=== PATIENT | male | born 1935 | race Caucasian/White ===

== ENCOUNTER 2016-05-10 10:46 | Day surgery (SDC) | payer OTHER ==
[2016-05-10 12:14] LABS: % IMMATURE GRANULYOCYTES 0.6 % (0.0-1.1); ABSOLUTE IMMATURE GRANULOCYTES 0.06 10^3/uL (0.00-0.10); ADD DIFF? NO; ADD MORPH? NO; ADD SCAN? NO; ATYPICAL LYMPHOCYTE FLAG 10 (0-99); FRAGMENT RBC FLAG 0 (0-99); HEMATOCRIT 41.7 % (40.0-51.0); HEMOGLOBIN 12.3 g/dL (13.7-17.5); LEFT SHIFT FLG 0 (0-99); LIPEMIA HEMOLYSIS FLAG 70 (0-99); MEAN CELL HEMOGLOBIN 25.5 pg (27.9-34.1); MEAN CELL HEMOGLOBIN CONCENTR. 29.5 g/dL (32.4-36.7); MEAN CELL VOLUME 86.3 fL (81.5-99.8); MEAN PLATELET VOLUME 8.2 fL (8.7-11.7); PLATELET CLUMPS FLAG 10 (0-99); PLATELET COUNT 387 10^3/uL (150-400); RED BLOOD CELL COUNT 4.83 10^6/uL (4.40-6.38); RED CELL DISTRIBUTION WIDTH 18.6 % (11.5-15.2)
[2016-05-10] MEDS ORDERED: LIDOCAINE 1% 5 ML SDV ID PRN (12:14)
[2016-05-10] MEDS ORDERED: LR 1,000 ML IV ONE (12:14)
[2016-05-10 12:18] LABS: ANION GAP 6 mEq/L (8-16); CALCIUM 9.4 mg/dL (8.5-10.4); CARBON DIOXIDE 31 mEq/l (22-31); CHLORIDE 105 mEq/L (97-110); CREATININE 1.1 mg/dL (0.7-1.3); GLOMERULAR FILTRATION RATE > 60; GLUCOSE 101 mg/dL (70-100); POTASSIUM 5.3 mEq/L (3.5-5.2); SODIUM 142 mEq/L (134-144)
[2016-05-10] MEDS ORDERED: BUPIVACAINE 0.5% 30 ML SDV ONE (12:18)
[2016-05-10] MEDS ORDERED: LIDOCAINE 2% 5 ML SDV ONE (12:19)
[2016-05-10 12:20] LABS: INR 1.16 (0.83-1.16); PROTIME(PATIENT) 14.8 SEC (12.0-15.0)
[2016-05-10] MEDS ORDERED: LIDOCAINE 1% 5 ML SDV ONE (13:00)
[2016-05-10] MEDS ORDERED: PROPOFOL/EMULSION 500 MG/50 ML BOTTLE IV ONE (13:01)
[2016-05-10] MEDS ORDERED: ALBUTEROL HFA ANES ONLY 200 PUFFS/8.5 GM MDI IH ONE (13:17)
[2016-05-10] MEDS ORDERED: fentaNYL 100 MCG/2 ML INJ ONE (13:40)
[2016-05-10] MEDS ORDERED: ONDANSETRON 4 MG/2 ML VIAL ONE (14:01)
[2016-05-10] MEDS ORDERED: OXYCODONE/APAP 5/325 TAB PO PRN (14:31)
[2016-05-10] MEDS ORDERED: OXYCODONE/APAP 5/325 TAB ONE (14:37)
--- NOTE | 2016-05-11 11:42 | GOP ---
[f rep st] OPERATIVE REPORT DATE OF OPERATION: 05/10/2016 SURGEON: Rodger Zeng DPM PENCILLER: None. ANESTHESIA: Local with monitored anesthesia care. PREOPERATIVE DIAGNOSIS: Osteomyelitis, 5th metatarsal head, left foot. POSTOPERATIVE DIAGNOSIS: Osteomyelitis, 5th metatarsal head, left foot. PROCEDURE PERFORMED: Partial 5th metatarsal resection, left foot. FINDINGS: SPECIMENS: Pathology: Distal portion of the left 5th metatarsal was sent for permanent specimen, al alice with the proximal margin. Swab cultures were also sent. ESTIMATED BLOOD LOSS: Scant. 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 This is one of multiple surgeries the patient has had on bila teral feet to remove exposed bone or deal with chronic ulcerations. Currently, the patient has an ex posed 5th metatarsal head to the left foot. The patient's vital signs were otherwise stable. The pa tient is scheduled for a left 5th metatarsal head resection for the distal portion of the 5th metatar mendez. The patient understands the risks, benefits, and alternatives, including loss of foot, limb or life, and wishes to proceed. DESCRIPTION OF PROCEDURE: Under observation, the patient was brought into the operating room, placed on the operating room in supine position. Following further IV sedation, 20 cc of 0.5% Marcaine alex in was infiltrated about the patient's left foot. It was then scrubbed, prepped, and draped in the u sual aseptic manner. A sterile pneumatic tourniquet was placed about the patient's well padded supra malleolar area. The foot was exsanguinated by simple elevation, and the tourniquet was inflated to 2 50 mmHg. The incision was directed overlying the dorsolateral aspect of the patient's 5th metatarsal head. Th e incision was roughly 6 cm long. The blade was taken straight to bone. Periosteal and capsular tis sues were reflected dorsally and plantarly, thus exposing the distal half of the left 5th metatarsal. Upon further dissection, the already present plantar lateral wound to the patient's left forefoot c onnected directly with the patient's left 5th metatarsal head. The 5th metatarsal head was soft, non viable, and had already broken down due to chronic inflammation and likely infection. All bone piece s were removed. Next, using a sagittal saw, the distal one-third of the patient's 5th metatarsal was resected and passed from the operative field. This was passed with the head of the 5th metatarsal i n multiple pieces, sent for pathologic specimen. Next, utilizing a sagittal saw, a 2 mm proximal mar gin was taken with the proximal portion being marked with an indelible pen. This was sent in a separ ate specimen container for pathologic specimen. The wound was then flushed with copious amounts of s terile normal saline. Any other nonviable tissue, especially within the ulcerative area, was excised . Two deep sutures were placed to close the void left by the missing 5th metatarsal. The incision w as closed with 3-0 Monocryl, closing the subcutaneous layers in 4-0 nylon in interrupted horizontal m attress sutures to close the skin. The wound was then addressed. Again, the edges were freshened, a nd the wound was closed with 2 deep sutures of 2-0 Vicryl and retention sutures of 4-0 nylon. The wo und was dressed with Xeroform and a sterile compressive dressing consisting of 4 x 4's and Bryson. An Junior wrap was also applied. Next, attention was directed to the lateral aspect of the patient's right foot, where a very superfic ial ulceration was overlying the 5th metatarsal. There were no exposed deep tissues, and the wound w as roughly 1.5 cm in diameter and 0.1 cm in depth. Granular tissue was at the base. This was freshe ramos with a sterile, clean 15 blade, and the wound was dressed with Xeroform and a sterile compressive dressing consisting of 4 x 4's and Bryson. An Junior bandage was also applied to this right foot. The patient tolerated the procedure and anesthesia well. The tourniquet was dropped on the left side, an d a prompt hyperemic response was noted to all residual digits of the left foot. He was transferred to the recovery room with vital signs stable and vascular status intact to all residual digits of the left and right feet. The patient will be discharged home on the following written and oral postoperative instructions: 1. Heel weightbearing is permitted with the use of surgical shoes. The patient is instructed to mini darby weightbearing. 2. The patient will follow up in my private office in 3-5 days for clinical assessment. All followup questions and concerns should be directed toward [facility] Orthopedic Department at [phone]. HEMOSTASIS: A pneumatic ankle tourniquet for 23 minutes. MATERIALS: None. INJECTABLES: 20 cc of 0.5% Marcaine plain. COMPLICATIONS: None. /[id number]/MODL
== END 2016-05-10 17:30 | disposition home or self-care (01) ==
LOC: FSGY 10:46
PROVIDERS: ATTEND Podiatrist Foot & Ankle Surgery
PROC: 0QBP0ZZ Excision of Left Metatarsal, Open Approach (ICD-10-PCS; principal; 2016-05-10 12:45)
DX: M86.272 Subacute osteomyelitis, left ankle and foot (principal); I50.9 Heart failure, unspecified; J44.9 Chronic obstructive pulmonary disease, unspecified; K21.9 Gastro-esophageal reflux disease without esophagitis; G47.33 Obstructive sleep apnea (adult) (pediatric)
CPT/HCPCS: J2405; J2704; J3010

== ENCOUNTER 2016-06-09 16:26 | Inpatient (IN) | payer OTHER ==
[2016-06-09] MEDS ORDERED: MIDAZOLAM 2 MG/2 ML VIAL ONE (19:35)
[2016-06-09] MEDS ORDERED: ONDANSETRON 4 MG/2 ML VIAL ONE (19:43)
[2016-06-09] MEDS ORDERED: DEXAMETHASONE 4 MG/ML VIAL ONE (19:43)
[2016-06-09] MEDS ORDERED: LIDOCAINE 2% 5 ML SDV ONE (19:43)
[2016-06-09] MEDS ORDERED: fentaNYL 100 MCG/2 ML INJ ONE (19:44)
[2016-06-09] MEDS ORDERED: PROPOFOL 200 MG/20 ML VIAL ONE ×2 (19:44→20:15)
[2016-06-09] MEDS ORDERED: METOPROLOL TARTRATE 5 MG/5 ML INJ ONE (20:18)
[2016-06-09] MEDS ORDERED: METOCLOPRAMIDE 10 MG/2 ML VIAL IVP PRN (20:47)
[2016-06-09] MEDS ORDERED: ONDANSETRON 4 MG/2 ML VIAL IVP PRN (20:47)
[2016-06-09] MEDS ORDERED: diphenhydrAMINE 25 MG CAP PO PRN (20:47)
[2016-06-09] MEDS ORDERED: DIPHENOXYLATE/ATROPINE LOMOTIL 1 TAB PO PRN (20:47)
[2016-06-09] MEDS ORDERED: PROMETHAZINE HCL 25 MG/ML INJ IVP PRN (20:47)
[2016-06-09] MEDS ORDERED: TEMAZEPAM 15 MG CAP PO PRN (20:47)
[2016-06-09] MEDS ORDERED: ONDANSETRON DISINTEGRATING 4 MG TAB PO PRN (20:47)
[2016-06-09] MEDS ORDERED: CYCLOBENZAPRINE 10 MG TAB PO PRN (20:47)
[2016-06-09] MEDS ORDERED: PROMETHAZINE HCL 25 MG SUPPR PR PRN (20:47)
[2016-06-09] MEDS ORDERED: LR 1,000 ML IV SCH (21:00)
[2016-06-09] MEDS: FAMOTIDINE 20 MG TAB PO SCH (22:20)
[2016-06-09] MEDS: ACETAMINOPHEN 325 MG TAB PO SCH (23:30)
[2016-06-09 23:38] LABS: ANION GAP 10 mEq/L (8-16); CARBON DIOXIDE 24 mEq/l (22-31); CHLORIDE 104 mEq/L (97-110); CREATININE 1.4 mg/dL (0.7-1.3); GLOMERULAR FILTRATION RATE 49; GLUCOSE 191 mg/dL (70-100); SODIUM 138 mEq/L (134-144)
--- NOTE | 2016-06-10 02:46 | GOP ---
[f rep st] OPERATIVE REPORT DATE OF OPERATION: 06/09/2016 SURGEON: Rodger Zeng DPM COUNTRY SINGER: None. ANESTHESIA: IV general. PREOPERATIVE DIAGNOSIS: Cellulitis with likely osteomyelitis, left foot. POSTOPERATIVE DIAGNOSIS: Cellulitis with likely osteomyelitis, left foot. PROCEDURE PERFORMED: An incision and drainage with partial resection of the residual 5th metatarsal . FINDINGS: SPECIMENS: Soft tissue and bone specimen sent to Pathology and for culture. ESTIMATED BLOOD LOSS: Minimal. INDICATIONS: The patient is well known to our practice and presented to the [facility] earlier this afternoon. I was called in my private office by Dr. Ridge jiin g the patient's cellulitis and open wounds with kavin purulence coming from the wounds. The patient was afebrile and without pain to the left foot. His vital signs were normal. I personally have no t seen any initial lab work. The patient was direct admitted through the emergency department and m cherise n.p.o. for the incision and drainage performed. The patient understands the risks, benefits, an d alternative to the procedure. The patient consents to care and wishes to proceed. DESCRIPTION OF PROCEDURE: Under mild sedation, the patient was brought into the operating room, alex mary jane on the operating table in supine position. Following further IV sedation, the left foot was giv en a regional block of 30 cc of 0.5% Marcaine plain. The foot was then scrubbed, prepped, and drape d in the usual aseptic manner. The foot was exsanguinated with elevation only and the tourniquet wa s inflated to 225 mmHg. Attention was then directed to the lateral aspect of the patient's left foot. A 6 cm linear longitu dinal incision was made in line with the 5th metatarsal down to the base of the 5th metatarsal. The incision was made deep to bone. The soft tissue specimen was taken for culture regarding aerobic, anaerobic, acid-fast, and fungal cultures. At this time, the residual 5th metatarsal was identified . There was a transverse column of soft bone at the metaphyseal diaphyseal junction. A sagittal sa w was utilized to remove this area and everything distal to it of the 5th metatarsal. The base of t he 5th metatarsal was left in place as it did not have any soft bone or necrotic tissue still there. Any nonviable soft tissue was resected and passed from the operative field. The wound was flushed with copious amounts of sterile normal saline. A single deep suture was used to cover the residual base of the 5th metatarsal. The skin was closed with retention-type sutures of a combination of 3- 0 and 2-0 nylon. The wound was dressed with Xeroform and a sterile compressive dressing consisting of 4x4s and Bryson. An Junior wrap was also applied. The tourniquet was dropped and a prompt hyperemic response was noted to all digits of the left foot. The patient tolerated the procedure and anesthe devora well. He will be transferred to the floor for further Infectious Disease consultation regarding IV antibiotics for osteomyelitis of the left foot. The patient will also be admitted by the [facility] team for further medical management and anticoagulation along with pain management. SURGEON: Rodger Zeng DPM. HEMOSTASIS: Pneumatic ankle tourniquet about the left ankle at 225 mmHg for 26 minutes. INJECTABLES: 30 cc of 0.5% Marcaine plain. MATERIALS: None. COMPLICATIONS: None. /[id number]/MODL
[2016-06-10] MEDS: oxyCODONE IR 5 MG TAB PO PRN ×2 (03:09→08:17)
[2016-06-10 04:58] LABS: HEMATOCRIT 41.1 % (40.0-51.0); HEMOGLOBIN 12.1 g/dL (13.7-17.5)
[2016-06-10] MEDS: ACETAMINOPHEN 325 MG TAB PO SCH ×3 (05:36→17:14)
--- NOTE | 2016-06-10 07:11 | SOAPPROG ---
SOAP Progress Note Assessment/Plan: Assessment: s/p left foot I&D - POD1 Plan: 06/10/16 07:06 continue with elevation of left foot. okay to WBAT in surgical shoe, but limit WB for next 24 hours to bathroom privileges. Assuming PICC line placement today via ID orders. Awaiting pending micro and path. Answered questions. Subjective: Doing well. No pain. Able to sleep. Denies f/c/n/v. Objective: Vital Signs Temp Pulse Resp BP Pulse Ox 36.3 C 87 18 130/76 H 91 L 06/10/16 03:00 06/10/16 03:00 06/10/16 03:00 06/10/16 03:00 06/10/16 03:00 Laboratory Results 06/10/16 04:16 06/09/16 23:18 06/09/16 06/10/16 06/11/16 05:59 05:59 05:59 Intake Total 950 327 Output Total 150 200 Balance 800 127 dsg: c/d/i; no strikethru ICD10 Worksheet Patient Problems: Problems Problem Status Onset Cellulitis Acute Chronic Disease [facility]/TransitionalCare Acute DVT (deep venous thrombosis) Acute Dyspnea Acute Hypoxia Acute MRSA (methicillin resistant Staphylococcus aureus) Acute 05/10/16 MRSA cellulitis Acute Pneumonia Acute Pulmonary emboli Acute Upper GI bleed Acute
[2016-06-10] MEDS ORDERED: traMADol 50 MG TAB PO PRN (07:12)
[2016-06-10] MEDS: FAMOTIDINE 20 MG TAB PO SCH ×3 (08:18→21:44)
[2016-06-10] MEDS ORDERED: GABAPENTIN 100 MG CAP PO SCH (09:00)
--- NOTE | 2016-06-10 10:41 | WOCRNPDOC ---
JOHN Advanced Assessment Note - Skin Integrity Problem, Advanced Assess Left Truong Dressing Type: Tegaderm Film, Xeroform Dressing Description: Clean/Dry, Intact Right Lateral Foot Dressing Type: Band Aid Dressing Description: Clean/Dry, Intact Exudate Amount: None Integumentary Issue Intervention: Visualized Under Dressing Vicki Wound Tissue: Hair Loss, Crusted, Calloused, Hyperkeratotic ((lower leg)) Vicki Wound Swelling: None Wound Bed Constitution: Scab, Dried Exudate Site Measurement - Head-to-Toe Length X Width X Depth (cm): 1x1x0 Skin Integrity Problem Comment: Foot with mulitple previous amputation sites that are now healed. Keep scab intact. Do not moisturize. [place] with Betadine BID. Compression during day and off at NOC. Atractain lotion to legs daily. Discussed care with [facility] outpatient Wound clinic. Papo GASPAR in room. Left Foot Dressing Type: Junior Bandage Dressing Description: Clean/Dry, Intact
[2016-06-10] MEDS ORDERED: ALBUTEROL 60 PUFFS/8 GM MDI IH PRN (11:12)
[2016-06-10] MEDS ORDERED: ACETAMINOPHEN 325 MG TAB PO PRN (11:12)
[2016-06-10] MEDS ORDERED: OXYCODONE/APAP 5/325 TAB PO PRN (11:12)
[2016-06-10] MEDS ORDERED: NON-FORMULARY NEW DRUG (Testosterone Cypionate [Testosterone Cypionate] 200 MG) IM SCH ×2 (11:15→12:00)
[2016-06-10] MEDS: APIXABAN 5 MG TAB PO SCH ×2 (12:03→21:43)
[2016-06-10] MEDS: SPIRONOLACTONE 25 MG TAB PO SCH (12:03)
[2016-06-10] MEDS ORDERED: ALTEPLASE 2 MG VIAL IVP PRN (13:10)
[2016-06-10] MEDS ORDERED: IOPAMIDOL (ISOVUE-300) 100 ML BTL IV ONE (14:30)
[2016-06-10] MEDS: VANCOMYCIN HCL/NORMAL SALINE 250 ML IV SCH (14:41)
[2016-06-10] MEDS: GABAPENTIN 100 MG CAP PO SCH ×2 (15:41→21:44)
[2016-06-10] MEDS ORDERED: MAGNESIUM HYDROXIDE 30 ML UDCUP PO PRN (15:48)
[2016-06-10] MEDS ORDERED: POLYETHYLENE GLYCOL 3350 17 GM PKT PO PRN (15:48)
[2016-06-10] MEDS ORDERED: LACTULOSE 20 GM/30 ML UDCUP PO PRN (15:48)
[2016-06-10] MEDS ORDERED: BISACODYL 10 MG SUPP PR PRN (15:48)
--- NOTE | 2016-06-10 16:52 | GCON ---
[f rep st] CONSULTATION DATE OF CONSULTATION: 06/10/2016 REASON FOR CONSULTATION: Medical management. HISTORY OF PRESENT ILLNESS: Mr. Mistry is a 80-year-old male, who has a longstanding history of multi ple surgeries on his left foot. He has been followed at the [facility], where he is seen by Dr. Dorantes, and the patient was noted to have increasing cellulitis and open wounds with purulent draina ge, requiring incision and drainage as well as partial resection of the residual 5th metatarsal and admission to the hospital for further evaluation and management. I have discussed the patient's car e with Dr. Zeng. Mr. Mistry tells me that this has been an ongoing problem for him. He has no specific complaints at this time. He denies any nausea, vomiting, diarrhea. Denies any fever, swea ts or night chills. Denies any dyspnea. chest pain or shortness of breath. He states that he has s ome mild discomfort in his left foot, but otherwise feels within his normal health. PAST MEDICAL HISTORY: 1. History of PEs and multiple DVTs, on Eliquis. 2. Alcohol abuse. 3. Diastolic heart failure. 4. Obstructive sleep apnea. 5. Chronic right lower extremity lymphedema. 6. Chronic lower extremity wounds. 7. Peripheral neuropathy. 8. GERD. 9. Chronic obstructive pulmonary disease. 10. Chronic hypoxemic respiratory failure with 4 L of oxygen. PAST SURGICAL HISTORY: 1. Right KRIS. 2. Bilateral rotator cuff surgeries. 3. 8+ surgeries on his foot. 4. Cholecystectomy. SOCIAL HISTORY: [place] [facility] [place] [facility] [place] [facility] [place]. He has a son who lives in [place]. He quit tobacco 25 years ago, but smoked 2 packs a day for 30 years. He drinks 3 whiskey drinks a n ight. He uses no illicit drugs. FAMILY HISTORY: Mother of aortic dissection at age 65. Father of [place] at age 51. ALLERGIES: None. REVIEW OF SYSTEMS: A comprehensive 10-point review of systems is negative other than noted in HPI. HOME MEDICATIONS: Testosterone, torsemide, Aldactone, Eliquis, Elavil, Percocet, Prilosec, albutero l, Tylenol, trazodone, Flomax, Neurontin. PHYSICAL EXAM: GENERAL: The patient is alert and oriented. VITAL SIGNS: Afebrile at 36.3, pulse is 92, respiratory rate 16, blood pressure is 114/82. He is saturating 92% on 3 L. HEENT: Normoce phalic, atraumatic. Mucosal membranes are moist. Pupils equal, round, reactive to light. RESPIRAT ORY: Lungs are clear to auscultation bilaterally. No rhonchi or wheezes noted. GASTROINTESTINAL: Abdomen: Bowel sounds are positive, soft and nontender. There is no guarding, rigidity noted. MU SCULOSKELETAL: 5/5 strength in the upper and lower extremities. SKIN: Without rashes or lesions. Left lower extremity has a dressing that is clean, dry, intact. Bilateral lower extremities have m ild edema with circulatory issues noted. LABORATORY EVALUATION: Hemoglobin of 12.1, creatinine of 1.4. ASSESSMENT AND PLAN: 1. History of deep vein thrombosis and pulmonary embolism. I will reinitiate the patient's previou sly prescribed anticoagulation of Eliquis. These are chronic ongoing problems for Mr. Mistry. I have reviewed with Dr. Zeng. He is comfortable with the patient being anticoagulated in the posto perative state. 2. Left foot cellulitis with wound. He has received incision and drainage as well as partial resec tion of the residual 5th metatarsal performed by Dr. Zeng. Infectious Disease will continue t o follow Mr. Mistry during this hospitalization. He will receive a PICC line with long-term IV antibi otics to be arranged by Infectious Disease. 3. History of alcohol abuse. There are no signs of withdrawal currently at this time, and Mr. Mistry appears to be stable. We will continue to monitor him closely during this hospitalization. 4. Compensated diastolic heart failure. There is no evidence of volume overload. He is stable and will continue his previously prescribed home diuretics. 5. Chronic hypoxemic respiratory failure. This is secondary to the patient's chronic obstructive p ulmonary disease. He normally wears 4 L of oxygen. He is currently tolerating 3 L of oxygen, and a ppears to be stable at this time. 6. Peripheral neuropathy. Will continue his previously prescribed gabapentin. 7. Pain. The patient will attempt to use Tylenol and if needed, will continue Percocet. 8. Obstructive sleep apnea. This is stable. The patient does not tolerate CPAP. DISPOSITION: Mr. Mistry's discharge is pending further organization of his IV antibiotics and physica l therapy evaluation. It has been recommended today that he receive home health care. I reviewed t he patient's care with the behavioral health case manager. We will continue to establish a discharge plan, and the maria de jesus littlejohn will be seen by Dr. Mills on 06/11/2016. I appreciate the ability to consult in this pleasant gentleman's care. We will continue to follow a long with you during his hospital course. /[id number]/MODL
--- NOTE | 2016-06-10 18:24 | PCMIDPN ---
Assessment/Plan: Assessment: Left foot postoperative infection and osteomyelitis. Prior MRSA and group a strep in culture. Current culture results pending but Gram stain shows both gram-positive cocci and gram-negative rods. Will start vancomycin and ertapenem. Anticipate need for 6 weeks of treatment. Patient agrees to go to a halfway facility for rehabilitation and IV antibiotics. Plan: 1. Continue vancomycin and start ertapenem 1 g IV Q 24 hours. 2. PICC line placement. 3. Placement in halfway facility for the short term. 06/10/16 18:22 Subjective: Patient is resting comfortably in bed. He states that his left foot is little sore since surgery. No fevers or chills. Objective: Vancomycin # 1 Ertapenem # 1 Vital Signs Temp Pulse Resp BP Pulse Ox 36.7 C 95 12 129/71 H 92 06/10/16 17:55 06/10/16 17:55 06/10/16 17:55 06/10/16 17:55 06/10/16 17:55 Microbiology 06/09/16 20:09 Mycobacterial Smear (RAEGAN) - Final Foot - Tissue 06/09/16 20:09 Gram Stain - Final Foot - Tissue Laboratory Results 06/10/16 04:16 06/09/16 23:18 06/09/16 06/10/16 06/11/16 05:59 05:59 05:59 Intake Total 950 1627 Output Total 150 200 Balance 800 1427 - Physical Exam General Appearance: WD/WN, alert, no apparent distress, non-toxic Respiratory: lungs clear, normal breath sounds, No respiratory distress Cardiac/Chest: regular rate, rhythm, No tachycardia Skin: normal color, warm/dry, No rash Neuro/Psych: alert, normal mood/affect, oriented x 3 ICD10 Worksheet Patient Problems: Problems Problem Status Onset Cellulitis Acute Chronic Disease Mgmt/TransitionalCare Acute DVT (deep venous thrombosis) Acute Dyspnea Acute Hypoxia Acute MRSA (methicillin resistant Staphylococcus aureus) Acute 05/10/16 MRSA cellulitis Acute Pneumonia Acute Pulmonary emboli Acute Upper GI bleed Acute
[2016-06-10] MEDS: AMITRIPTYLINE HCL 50 MG TAB PO SCH (21:43)
[2016-06-10] MEDS: traZODone 100 MG TAB PO SCH (21:43)
[2016-06-10] MEDS: SENNOSIDES/DOCUSATE SODIUM TAB PO SCH (21:44)
[2016-06-11] MEDS: ACETAMINOPHEN 325 MG TAB PO SCH ×5 (00:30→23:58)
[2016-06-11 05:48] LABS: HEMATOCRIT 37.3 % (40.0-51.0); HEMOGLOBIN 10.7 g/dL (13.7-17.5)
[2016-06-11] MEDS ORDERED: NON-FORMULARY NEW DRUG (Omeprazole [Prilosec 20 Mg] 20 MG) PO SCH (09:00)
[2016-06-11] MEDS: ERTAPENEM 1 GM in NS 100 ML IV SCH (09:57)
[2016-06-11] MEDS: GABAPENTIN 100 MG CAP PO SCH ×3 (09:58→20:48)
[2016-06-11] MEDS: TAMSULOSIN HCL 0.4 MG CAP PO SCH (09:58)
[2016-06-11] MEDS: TORSEMIDE 20 MG TAB PO SCH (09:58)
[2016-06-11] MEDS: FAMOTIDINE 20 MG TAB PO SCH ×2 (09:59→20:47)
[2016-06-11] MEDS: PANTOPRAZOLE SODIUM 40 MG TAB PO SCH (09:59)
[2016-06-11] MEDS: SENNOSIDES/DOCUSATE SODIUM TAB PO SCH ×2 (09:59→20:47)
[2016-06-11] MEDS: APIXABAN 5 MG TAB PO SCH ×2 (09:59→20:48)
[2016-06-11] MEDS: SPIRONOLACTONE 25 MG TAB PO SCH (11:48)
[2016-06-11] MEDS: VANCOMYCIN HCL/NORMAL SALINE 250 ML IV SCH (13:56)
[2016-06-11] MEDS: traZODone 100 MG TAB PO SCH (20:48)
--- NOTE | 2016-06-11 21:33 | HOSPPROG ---
Hospitalist Progress Note Assessment/Plan: Assessment: 80 yo M p/w post-operative wound infection and osteomyelitis Plan: # Osteomyelitis. 2/2 post-op wound infxn, s/p 5th metatarsal removal POD#1 - cx w/ GPC/GNR - ID consult, on Vanco and Ertapenem - PICC line for 6 weeks IV Abx - Dr. Zeng Podiatry primary # Chronic diastolic CHF. No e/o acute exacerbation, cont home Rx # Chronic hypoxic respiratory failure. Cont home 4L NC # Chronic DVT/PE. Cont on eliquis, no substantial post-op bleeding # CKD Stage III. Cr 1.4, cont to monitor UOP and serum Cr # SHANNAN. Chronic, patient does not tolerate CPAP # Neuropathy. Chronic, patient w/ recent dose reduction 2/2 lightheadedness # Constipation. Cont bowel regimen, recommend mag citrate PRN Hospital Medicine will continue to consult in his care. Subjective: remains constipation, gets dizzy w/ gabapentin dosing Objective: Vital Signs Temp Pulse Resp BP Pulse Ox 36.5 C 83 19 112/61 92 06/11/16 15:18 06/11/16 15:18 06/11/16 15:18 06/11/16 15:18 06/11/16 15:18 Microbiology 06/09/16 20:09 Gram Stain - Final Foot - Tissue 06/09/16 20:09 Mycobacterial Smear (RAEGAN) - Final Foot - Tissue Laboratory Results 06/11/16 05:30 06/09/16 23:18 06/10/16 06/11/16 06/12/16 05:59 05:59 05:59 Intake Total 950 1627 Output Total 150 550 700 Balance 800 1077 -700 - Physical Exam Constitutional: not in pain, chronically ill appearing, obese, uncomfortable Cardiovascular: regular rate and rhythym, no murmur, rub, or gallop, irregularly irregular, edema (1+ bilt LE), No tachycardia Respiratory: inspiratory crackles (bilat bases), No reduced air movement, No expiratory wheeze, No bronchial breath sounds Gastrointestinal: normoactive bowel sounds, soft, non-tender abdomen, no palpable masses, distension (rotund) Neurologic: AAOx3, No sensation intact bilaterally (parasthesias bilat LE distally), No weakness (motor 5/5 bilat LE) Psychiatric: interacting appropriately, not anxious, not encephalopathic, thought process linear ICD10 Worksheet Patient Problems: Problems Problem Status Onset Cellulitis Acute DVT (deep venous thrombosis) Acute Pulmonary emboli Acute MRSA (methicillin resistant Staphylococcus aureus) Acute 05/10/16 Dyspnea Acute Hypoxia Acute MRSA cellulitis Acute Pneumonia Acute Chronic Disease Mgmt/TransitionalCare Acute Upper GI bleed Acute
[2016-06-11] MEDS ORDERED: MAGNESIUM CITRATE 300 ML BOTTLE PO PRN (21:34)
--- NOTE | 2016-06-11 22:02 | PCMIDPN ---
Assessment/Plan: Assessment: Left foot postoperative infection and osteomyelitis. Prior MRSA and group a strep in culture. Current culture results pending but Gram stain shows both gram-positive cocci and gram-negative rods. Stable on Vancomycin and ertapenem. Mixed cutaneous princess on culture. Plan: 1. Continue vancomycin and ertapenem 1 g IV Q 24 hours. 2. Placement in retirement facility for the short term. 06/10/16 18:22 06/11/16 21:59 Subjective: Patient stable. No new events. Objective: Vancomycin #2 ertapenem #2 Vital Signs Temp Pulse Resp BP Pulse Ox 36.5 C 83 19 112/61 92 06/11/16 15:18 06/11/16 15:18 06/11/16 15:18 06/11/16 15:18 06/11/16 15:18 Microbiology 06/09/16 20:09 Gram Stain - Final Foot - Tissue 06/09/16 20:09 Mycobacterial Smear (RAEGAN) - Final Foot - Tissue Laboratory Results 06/11/16 05:30 06/09/16 23:18 06/10/16 06/11/16 06/12/16 05:59 05:59 05:59 Intake Total 950 1627 Output Total 150 550 700 Balance 800 1077 -700 ICD10 Worksheet Patient Problems: Problems Problem Status Onset Cellulitis Acute Chronic Disease Mgmt/TransitionalCare Acute DVT (deep venous thrombosis) Acute Dyspnea Acute Hypoxia Acute MRSA (methicillin resistant Staphylococcus aureus) Acute 05/10/16 MRSA cellulitis Acute Pneumonia Acute Pulmonary emboli Acute Upper GI bleed Acute
[2016-06-11 22:39] VITALS: RESP 16
[2016-06-11] MEDS: AMITRIPTYLINE HCL 50 MG TAB PO SCH (22:39)
[2016-06-12] MEDS: ACETAMINOPHEN 325 MG TAB PO SCH ×2 (05:34→12:29)
[2016-06-12 05:59] LABS: % IMMATURE GRANULYOCYTES 0.5 % (0.0-1.1); ABSOLUTE IMMATURE GRANULOCYTES 0.04 10^3/uL (0.00-0.10); ADD DIFF? NO; ADD MORPH? NO; ADD SCAN? NO; ATYPICAL LYMPHOCYTE FLAG 10 (0-99); FRAGMENT RBC FLAG 0 (0-99); HEMATOCRIT 38.1 % (40.0-51.0); HEMOGLOBIN 11.2 g/dL (13.7-17.5); LEFT SHIFT FLG 0 (0-99); LIPEMIA HEMOLYSIS FLAG 70 (0-99); MEAN CELL HEMOGLOBIN 24.9 pg (27.9-34.1); MEAN CELL HEMOGLOBIN CONCENTR. 29.4 g/dL (32.4-36.7); MEAN CELL VOLUME 84.9 fL (81.5-99.8); PLATELET CLUMPS FLAG 0 (0-99); PLATELET COUNT 298 10^3/uL (150-400); RED BLOOD CELL COUNT 4.49 10^6/uL (4.40-6.38)
[2016-06-12 06:19] LABS: ANION GAP 5 mEq/L (8-16); CALCIUM 10.1 mg/dL (8.5-10.4); CARBON DIOXIDE 29 mEq/l (22-31); CHLORIDE 105 mEq/L (97-110); CREATININE 1.3 mg/dL (0.7-1.3); GLOMERULAR FILTRATION RATE 53; GLUCOSE 85 mg/dL (70-100); POTASSIUM 5.6 mEq/L (3.5-5.2); SODIUM 139 mEq/L (134-144)
--- NOTE | 2016-06-12 08:48 | SOAPPROG ---
SOAP Progress Note Assessment/Plan: Assessment: s/p left foot I&D - POD3 Plan: 06/10/16 07:06 continue with elevation of left foot. okay to WBAT in surgical shoe, but limit WB for next 24 hours to bathroom privileges. Assuming PICC line placement today via ID orders. Awaiting pending micro and path. Answered questions. 06/12/16 08:45 Dressing changed this morning. Patient to be discharged to SNF today. [facility], I believe. Continue with daily dressing change: xeroform, sterile gauze, Kerlix and REJI bandage. Okay to ambulate in surgical shoe, but this must be secured for patient prior to walking (he will slip out of shoe and is unable to reach down himself). He should follow up for dressing change in my office at [facility] on Tuesday06/16/16. He will need to schedule once at [facility] to schedule transfer. Subjective: Doing well. He's celebrating his BM this morning after 3 days of not moving bowels. Otherwise, his left foot pain is controlled with tylenol. Denies f/c/n /v. Objective: Vital Signs Temp Pulse Resp BP Pulse Ox 36.4 C 82 16 113/66 91 L 06/12/16 07:33 06/12/16 07:33 06/12/16 07:33 06/12/16 07:33 06/12/16 07:33 Microbiology 06/09/16 20:09 Gram Stain - Final Foot - Tissue Laboratory Results 06/12/16 05:40 06/12/16 05:40 06/11/16 06/12/16 06/13/16 05:59 05:59 05:59 Intake Total 1627 750 Output Total 550 1200 Balance 1077 -450 incision site remains intact; mild maceration due to bleeding, but this can be dried with appropriate wound care; no further signs of infection - Pending Discharge Pending Discharge Within 24 Hours: Yes Pending Discharge Date: 06/13/16 Pending Discharge Time: 11:00 ICD10 Worksheet Patient Problems: Problems Problem Status Onset Cellulitis Acute Chronic Disease Mgmt/TransitionalCare Acute DVT (deep venous thrombosis) Acute Dyspnea Acute Hypoxia Acute MRSA (methicillin resistant Staphylococcus aureus) Acute 05/10/16 MRSA cellulitis Acute Pneumonia Acute Pulmonary emboli Acute Upper GI bleed Acute
[2016-06-12] MEDS ORDERED: BENEFIBER/NUTRISOURCE FIBER PKT 1 EACH PO SCH (09:00)
[2016-06-12] MEDS: TAMSULOSIN HCL 0.4 MG CAP PO SCH (09:15)
[2016-06-12] MEDS: FAMOTIDINE 20 MG TAB PO SCH (09:15)
[2016-06-12] MEDS: APIXABAN 5 MG TAB PO SCH (09:15)
[2016-06-12] MEDS: PANTOPRAZOLE SODIUM 40 MG TAB PO SCH (09:15)
[2016-06-12] MEDS: ERTAPENEM 1 GM in NS 100 ML IV SCH (09:15)
[2016-06-12] MEDS: GABAPENTIN 100 MG CAP PO SCH ×2 (09:16→16:50)
[2016-06-12] MEDS: SENNOSIDES/DOCUSATE SODIUM TAB PO SCH (09:16)
[2016-06-12] MEDS: TORSEMIDE 20 MG TAB PO SCH (09:16)
[2016-06-12] MEDS: SPIRONOLACTONE 25 MG TAB PO SCH (12:29)
--- NOTE | 2016-06-12 12:53 | HOSPPROG ---
Hospitalist Progress Note Assessment/Plan: Assessment: 80 yo M p/w post-operative wound infection and osteomyelitis Plan: # Osteomyelitis. 2/2 post-op wound infxn, s/p 5th metatarsal removal POD#2 - cx w/ GPC/GNR, Enterococcus growing - ID consult, on Vanco and Ertapenem - PICC line for 6 weeks IV Abx, will require home infusion vs. infusion ctr, should be arranged w/ SNF CM and outpt ID and follow-up appt in 1 week w/ Dr. Dorantes - Dr. Zeng Podiatry primary # Chronic diastolic CHF. No e/o acute exacerbation, cont home Rx # Chronic hypoxic respiratory failure. Cont home 4L NC # Chronic DVT/PE. Cont on eliquis, no substantial post-op bleeding # CKD Stage III. Cr 1.3, cont to monitor UOP and serum Cr # SHANNAN. Chronic, patient does not tolerate CPAP # Neuropathy. Chronic, patient w/ recent dose reduction 2/2 lightheadedness # Constipation. Cont bowel regimen, had BM, recommend outpt daily fiber supplement Patient is safe for discharge from a medical standpoint - Dr. Zeng is primary Subjective: Patient reports that he would like some additional ibuprofen at this time, would like to discuss outpatient IV infusion services with Infectious Disease Objective: Vital Signs Temp Pulse Resp BP Pulse Ox 36.4 C 82 16 113/66 91 L 06/12/16 07:33 06/12/16 07:33 06/12/16 07:33 06/12/16 07:33 06/12/16 07:33 Microbiology 06/09/16 20:09 Gram Stain - Final Foot - Tissue Laboratory Results 06/12/16 05:40 06/12/16 05:40 06/11/16 06/12/16 06/13/16 05:59 05:59 05:59 Intake Total 1627 750 Output Total 550 1200 300 Balance 1077 -450 -300 - Physical Exam Constitutional: no apparent distress, not in pain, chronically ill appearing, obese, uncomfortable Cardiovascular: regular rate and rhythym, no murmur, rub, or gallop, edema (2+ bilateral lower extremity), No irregularly irregular Respiratory: no respiratory distress, no rales or rhonchi, clear to auscultation Gastrointestinal: normoactive bowel sounds, soft, non-tender abdomen, no palpable masses, distension (Proton) Neurologic: AAOx3, No sensation intact bilaterally (Paresthesias bilateral distal lower extremities), No weakness (Motor strength 5/5 bilateral lower extremity), No facial droop Psychiatric: interacting appropriately, not anxious, not encephalopathic, thought process linear ICD10 Worksheet Patient Problems: Problems Problem Status Onset Cellulitis Acute DVT (deep venous thrombosis) Acute Pulmonary emboli Acute MRSA (methicillin resistant Staphylococcus aureus) Acute 05/10/16 Dyspnea Acute Hypoxia Acute MRSA cellulitis Acute Pneumonia Acute Chronic Disease [facility]itional[facility] Acute Upper GI bleed Acute
[2016-06-12] MEDS: VANCOMYCIN HCL/NORMAL SALINE 250 ML IV SCH (13:38)
--- NOTE | 2016-06-12 15:53 | PDIAF ---
- Diagnosis Diagnosis: left foot fifth metatarsal osteomyelitis Code Status: Full Code - Medication Management Discharge Medications: Medications to Continue on Transfer Omeprazole [Prilosec 20 mg] 20 mg PO DAILY 03/10/14 [Last Taken 05/09/16] Albuterol [Proventil Inhaler HFA (*)] 1 - 2 puffs IH Q6 PRN 03/13/15 [Last Taken 1 Week Ago] Apixaban [Eliquis] 5 mg PO BID 08/14/15 [Last Taken 06/09/16] Spironolactone [Aldactone 25 MG (*)] 25 mg PO DAILY@12 10/01/15 [Last Taken ] Acetaminophen [Tylenol 325mg (*)] 325 - 650 mg PO Q6 PRN 02/13/16 [Last Taken ] Tamsulosin HCl [Flomax 0.4 MG (*)] 0.4 mg PO DAILY 02/13/16 [Last Taken 05/09/16 ] Torsemide [Demadex] 20 mg PO DAILY 02/13/16 [Last Taken 06/09/16] oxyCODONE/APAP 5/325 [Percocet 5/325 (*)] 1 tab PO DAILY PRN 02/13/16 [Last Taken 1 Week Ago] traZODone [traZODONE 100MG (*)] 100 mg PO HS 02/13/16 [Last Taken 05/09/16] Gabapentin [Neurontin 100 MG (*)] 200 mg PO TID #0 cap 02/14/16 [Last Taken ] Amitriptyline HCl [Elavil 50 mg (*)] 50 mg PO HS 06/09/16 [Last Taken 06/08/16] Testosterone Cypionate 200 mg IM Q14D 06/09/16 [Last Taken 06/08/16] Discharge Medications: Refer to the Discharge Home Medication list for PRN reason. PICC Care - Routine: Yes - Orders Isolation Type: patient current has MRSA and h/o MRSA Diet Recommendation: no restrictions on diet Diet Texture: Regular Texture Diet Wound Care Instructions: change dressing every other day with non-adherent dressing and dry, sterile dressing covered with an REJI bandage. Sutures/[place] Site: Leave sutures. Date to Remove Sutures/[place]: 06/30/16 Activity/Weight Bearing Restrictions: ad deysi with surgical shoes Additional: patient will need to have legs elevated and/or have triple-layer compression to each foot/ankle/leg to combat with chronic, weeping leg lymphedema - Follow Up Care Current Providers and Referrals: Sameer Velazquez MD [Primary Care Provider] -
--- NOTE | 2016-06-12 15:59 | PDIAF ---
- Diagnosis Diagnosis: left foot fifth metatarsal osteomyelitis Code Status: Full Code - Medication Management Discharge Medications: Medications to Continue on Transfer Omeprazole [Prilosec 20 mg] 20 mg PO DAILY 03/10/14 [Last Taken 05/09/16] Albuterol [Proventil Inhaler HFA (*)] 1 - 2 puffs IH Q6 PRN 03/13/15 [Last Taken 1 Week Ago] Apixaban [Eliquis] 5 mg PO BID 08/14/15 [Last Taken 06/09/16] Spironolactone [Aldactone 25 MG (*)] 25 mg PO DAILY@12 10/01/15 [Last Taken ] Acetaminophen [Tylenol 325mg (*)] 325 - 650 mg PO Q6 PRN 02/13/16 [Last Taken ] Tamsulosin HCl [Flomax 0.4 MG (*)] 0.4 mg PO DAILY 02/13/16 [Last Taken 05/09/16 ] Torsemide [Demadex] 20 mg PO DAILY 02/13/16 [Last Taken 06/09/16] oxyCODONE/APAP 5/325 [Percocet 5/325 (*)] 1 tab PO DAILY PRN 02/13/16 [Last Taken 1 Week Ago] traZODone [traZODONE 100MG (*)] 100 mg PO HS 02/13/16 [Last Taken 05/09/16] Gabapentin [Neurontin 100 MG (*)] 200 mg PO TID #0 cap 02/14/16 [Last Taken ] Amitriptyline HCl [Elavil 50 mg (*)] 50 mg PO HS 06/09/16 [Last Taken 06/08/16] Testosterone Cypionate 200 mg IM Q14D 06/09/16 [Last Taken 06/08/16] Usp Antibiotics: Vancomycin 1 g IV Q 24 hours, ertapenem 1 g IV Q 24 hours External Grinder Antibiotic Stop Date: 07/21/16 Discharge Medications: Refer to the Discharge Home Medication list for PRN reason. PICC Care - Routine: Yes - Orders Diet Recommendation: no restrictions on diet Diet Texture: Regular Texture Diet Wound Care Instructions: change dressing every other day with non-adherent dressing and dry, sterile dressing covered with an REJI bandage. Sutures/[place] Site: Leave sutures. Date to Remove Sutures/[place]: 06/30/16 Activity/Weight Bearing Restrictions: ad deysi with surgical shoes Additional: patient will need to have legs elevated and/or have triple-layer compression to each foot/ankle/leg to combat with chronic, weeping leg lymphedema - Labs/Radiology CBC Date: 06/16/16 (Weekly Q Tuesday) CMP Date: 06/16/16 (Weekly Q Tuesday) Creatinine Date: 06/13/16 (Weekly Q Tuesday) Vanco Trough Date and Time: Weekly Q Tuesday, Tuesday Call or Fax Lab and Imaging Results to: Dr. Dorantes, - Follow Up Care Current Providers and Referrals: Sameer Velazquez MD [Primary Care Provider] -
--- NOTE | 2016-06-12 16:16 | PDIAF ---
- Diagnosis Diagnosis: left foot fifth metatarsal osteomyelitis Code Status: Full Code - Medication Management Discharge Medications: Medications to Continue on Transfer Omeprazole [Prilosec 20 mg] 20 mg PO DAILY 03/10/14 [Last Taken 05/09/16] Albuterol [Proventil Inhaler HFA (*)] 1 - 2 puffs IH Q6 PRN 03/13/15 [Last Taken 1 Week Ago] Apixaban [Eliquis] 5 mg PO BID 08/14/15 [Last Taken 06/09/16] Spironolactone [Aldactone 25 MG (*)] 25 mg PO DAILY@12 10/01/15 [Last Taken ] Acetaminophen [Tylenol 325mg (*)] 325 - 650 mg PO Q6 PRN 02/13/16 [Last Taken ] Tamsulosin HCl [Flomax 0.4 MG (*)] 0.4 mg PO DAILY 02/13/16 [Last Taken 05/09/16 ] Torsemide [Demadex] 20 mg PO DAILY 02/13/16 [Last Taken 06/09/16] oxyCODONE/APAP 5/325 [Percocet 5/325 (*)] 1 tab PO DAILY PRN 02/13/16 [Last Taken 1 Week Ago] traZODone [traZODONE 100MG (*)] 100 mg PO HS 02/13/16 [Last Taken 05/09/16] Gabapentin [Neurontin 100 MG (*)] 200 mg PO TID #0 cap 02/14/16 [Last Taken ] Amitriptyline HCl [Elavil 50 mg (*)] 50 mg PO HS 06/09/16 [Last Taken 06/08/16] Testosterone Cypionate 200 mg IM Q14D 06/09/16 [Last Taken 06/08/16] Acetaminophen [Tylenol 325mg (*)] 650 mg PO Q6HRS #0 tab 06/12/16 [Last Taken Unknown] Alteplase [Cathflo Activase 2 mg (*)] 2 mg IVP PRN PRN #0 vial 06/12/16 [Last Taken Unknown] Cyclobenzaprine [Flexeril 10 MG (*)] 10 mg PO Q8HRS PRN #0 tab 06/12/16 [Last Taken Unknown] Diphenoxylate HCl/Atrop Sulf [Lomotil Tab (*)] 1 tab PO QID PRN #0 tab 06/12/16 [Last Taken Unknown] Ertapenem [INVanz] 1 gm IV DAILY #0 vial 06/12/16 [Last Taken Unknown] Famotidine [Pepcid 20 MG (*)] 20 mg PO BID #0 tab 06/12/16 [Last Taken Unknown] Guar Gum [Benefiber/Nutrisource Fiber (*)] 1 each PO DAILY #0 pkt 06/12/16 [ Last Taken Unknown] Magnesium Citrate [Magnesium Citrate 300 ml (*)] 300 ml PO DAILY PRN #0 bottle 06/12/16 [Last Taken Unknown] Metoclopramide [Reglan 10 mg IV (*)] 10 mg IVP Q6HRS PRN #0 vial 06/12/16 [Last Taken Unknown] Ondansetron HCl Pf [Zofran 4 mg Inj (*)] 4 mg IVP Q4HRS PRN #0 vial 06/12/16 [ Last Taken Unknown] Ondansetron Odt [Zofran Odt 4 mg (*)] 4 mg PO Q4HRS PRN #0 tab 06/12/16 [Last Taken Unknown] Polyethylene Glycol 3350 [Miralax 17 gm (*)] 17 gm PO DAILY PRN #0 pkt 06/12/16 [Last Taken Unknown] Promethazine HCl [Phenergan Injection] 12.5 mg IVP Q4HRS PRN #0 inj 06/12/16 [ Last Taken Unknown] Promethazine HCl [Phenergan Rectal] 25 mg NC Q6HRS PRN #0 suppr 06/12/16 [Last Taken Unknown] Sennosides/Docusate Sodium [Senokot-S] 1 - 2 tab PO BID #0 tab 06/12/16 [Last Taken Unknown] Temazepam [Restoril 15 MG (*)] 15 mg PO HS PRN #0 cap 06/12/16 [Last Taken Unknown] Vancomycin HCl/Normal Saline [Vancomycin 1 gm (Premix)] 250 ml IV Q24H #0 bag [Last Taken Unknown] diphenhydrAMINE [Benadryl 25 MG (*)] 25 mg PO Q4HRS PRN #0 cap 06/12/16 [Last Taken Unknown] diphenhydrAMINE [Benadryl Injection] 25 mg IVP Q4HRS PRN #0 inj 06/12/16 [Last Taken Unknown] morphINE [morphINE 2mg/ml Inj (*)] 2 - 4 mg IVP Q3HRS PRN #0 syr 06/12/16 [Last Taken Unknown] traMADol [Ultram 50 mg (*)] 50 mg PO Q6HRS PRN #0 tab 06/12/16 [Last Taken Unknown] Interpretative Dancer Antibiotics: Vancomycin 1 g IV Q 24 hours, ertapenem 1 g IV Q 24 hours Interpretative Dancer Antibiotic Stop Date: 07/21/16 Discharge Medications: Refer to the Discharge Home Medication list for PRN reason. PICC Care - Routine: Yes - Orders Diet Recommendation: no restrictions on diet Diet Texture: Regular Texture Diet Wound Care Instructions: change dressing every other day with non-adherent dressing and dry, sterile dressing covered with an REJI bandage. Sutures/[place] Site: Leave sutures. Date to Remove Sutures/[place]: 06/30/16 Activity/Weight Bearing Restrictions: ad deysi with surgical shoes Additional: patient will need to have legs elevated and/or have triple-layer compression to each foot/ankle/leg to combat with chronic, weeping leg lymphedema - Labs/Radiology CBC Date: 06/16/16 (Weekly Q Tuesday) CMP Date: 06/16/16 (Weekly Q Tuesday) Creatinine Date: 06/13/16 (Weekly Q Tuesday) Vanco Trough Date and Time: Weekly Q Tuesday, Tuesday Call or Fax Lab and Imaging Results to: Dr. Dorantes, - Follow Up Care Current Providers and Referrals: Sameer Velazquez MD [Primary Care Provider] -
[2016-06-12 16:38] VITALS: BP 101/63; PULSE 86; TEMP 97.9; O2SAT 96
[2016-06-22] MEDS ORDERED: NON-FORMULARY NEW DRUG (Testosterone Cypionate [Testosterone Cypionate] 200 MG) IM SCH (09:00)
== END 2016-06-12 17:09 | DRG 857 ==
LOC: FSGY 16:26 → F3E 20:48
PROVIDERS: ADMIT Podiatrist Foot & Ankle Surgery; ATTEND Podiatrist Foot & Ankle Surgery
PROC: 0QBP0ZZ Excision of Left Metatarsal, Open Approach (ICD-10-PCS; principal; 2016-06-09 19:00)
PROC: 05H733Z Insertion of Infusion Device into Right Axillary Vein, Percutaneous Approach (ICD-10-PCS; 2016-06-10)
DX: T81.4XXA Infection following a procedure, initial encounter (principal); M86.172 Other acute osteomyelitis, left ankle and foot; L03.116 Cellulitis of left lower limb; I50.32 Chronic diastolic (congestive) heart failure; J96.11 Chronic respiratory failure with hypoxia; F10.10 Alcohol abuse, uncomplicated; G47.33 Obstructive sleep apnea (adult) (pediatric); K21.9 Gastro-esophageal reflux disease without esophagitis; J44.9 Chronic obstructive pulmonary disease, unspecified; G62.9 Polyneuropathy, unspecified; Z86.711 Personal history of pulmonary embolism; Z86.718 Personal history of other venous thrombosis and embolism; Z79.01 Long term (current) use of anticoagulants; Z96.641 Presence of right artificial hip joint; Z87.891 Personal history of nicotine dependence; N18.3 Chronic kidney disease, stage 3 (moderate); K59.00 Constipation, unspecified
CPT/HCPCS: 97116-GP; 97161-GP; 97166-GO; 97535-GO; C1751; C1769; G8978-GP-CI; G8979-GP-CI; G8987-GO-CK; G8988-GO-CI; J1100; J1335; J2250; J2405; J2704; J3010; J3370; Q9967

== ENCOUNTER 2016-10-03 17:04 | Emergency (ER) | payer OTHER ==
[2016-10-03] MEDS ORDERED: NS 500 ML IV ONE ×2 (17:15→17:16)
--- NOTE | 2016-10-03 17:19 | EDPHY ---
H & P HPI/ROS: HPI CHIEF COMPLAINT: Syncope, nasal laceration, diarrhea HISTORY OF PRESENT ILLNESS: This patient 81-year-old male significant past medical history for osteomyelitis, pulmonary embolism on Eliquis, DVT, MRSA infection, pneumonia, COPD on 4 L nasal cannula, CHF, presents to the emergency room after he had a syncopal episode. Patient states he was having diarrhea seated position on the toilet. The next thing he knows he was on the ground. With head strike. Positive LOC. He denies preceding symptoms, denies chest pain, shortness of breath, headache, focal weakness, numbness or tingling. He does tell me that he had a episode of syncope and was hospitalized at [facility] a few weeks ago and he states he had a normal syncopal episode he did stay overnight. He tells me he has felt fine today other than diarrhea loose watery stools. This patient presented by [facility]. Past Medical History: Pulmonary embolism and DVT on Eliquis, osteomyelitis, MRSA infection, pneumonia, COPD 4 L nasal cannula around the clock, CHF Past Surgical History: No recent surgical history Social History: Denies daily use drugs alcohol tobacco products, lives independently, [place] Family History: Noncontributory ROS REVIEW OF SYSTEMS: A comprehensive 10 point review of systems is otherwise negative aside from elements mentioned in the history of present illness. Exam Constitutional appears well nontoxic, triage nursing summary reviewed, vital signs reviewed, awake/alert. Vital signs stable upon arrival. Eyes normal conjunctivae and sclera, EOMI, PERRLA. HENT normal inspection, atraumatic, moist mucus membranes, no epistaxis, neck supple/ no meningismus, no raccoon eyes. Respiratory clear to auscultation bilaterally, normal breath sounds, no respiratory distress, no wheezing. Cardiovascular rate normal, regular rhythm, no murmur, no edema, distal pulses normal. Gastrointestinal soft, non-tender, no rebound, no guarding, normal bowel sounds, no distension, no pulsatile mass. Genitourinary no CVA tenderness. Musculoskeletal chronic lower extremity edema, legs are wrapped, no midline vertebral tenderness, full range of motion, no calf swelling, no tenderness of extremities, no meningismus, good pulses, neurovascularly intact. Skin pink, warm, & dry, no rash, skin atraumatic. Neurologic awake, alert and oriented x 3, AAOx3, moves all 4 extremities equally, motor intact, sensory intact, CN II-XII intact, normal cerebellar, normal vision, normal speech. Psychiatric normal mood/affect. Heme/Lymph/Immune no lymphadenopathy. Differential Diagnosis: Includes but is not limited to in a particular order, vasovagal syncope, dehydration, electrolyte abnormality, orthostatic syncope, cardiac arrhythmia, ACS, pulmonary embolism Medical Decision Making: Plan for this patient 81-year-old with syncope, IV establishment, IV fluid bolus, orthostatic blood pressure, CT scan of head for trauma, chest x-ray, EKG, check electrolytes. Re-evaluation: 1722: Patient has positive orthostatic blood pressure. Supine position blood pressure was 110 systolic standing up 87 systolic. Heart rate unchanged. EKG interpretation by me on record in [employer] system. Impression time of EKG 1725, sinus rhythm rate of 61, first-degree AV block present. Pr interval 228. Left axis deviation. Otherwise unremarkable EKG no acute ischemia. Specifically no ST elevation, ST depression or significant T-wave abnormalities. CT scan of the head w/o The results of the study are negative for anything acute. Specifically no skull fracture bleed.. The study was read by Dr. Garza I viewed the images myself on the PACS system. 1826: Patient's blood work reviewed. Negative D-dimer. Negative troponin. EKG unchanged from previous EKG. Dated 08/28/2015. Patient noted to have positive orthostatics. Getting IV fluids at this time. CT head shows nothing acute. Chest x-ray pending 1903: I did re-evaluate this patient this time is resting comfortably has no complaints specifically denies chest pain shortness of breath headache number stool no focal weakness. He is asking something to eat. I did update him and explained that he is dehydrated. He did receive a L was of normal saline here in the emergency room. He is resting comfortably. Explain will repeat his EKG and troponin shortly if this is normal and he ambulates well without any difficulty or feeling if he is going to pass out our allowed to go home. Most likely cause of syncope is orthostatic hypotension or make duration syncope in the setting of dehydration. EKG interpretation by me on record in [employer] system. Impression time of EKG is 2024, this is sinus rhythm rate of 76, first-degree AV block MT interval 216. Otherwise unremarkable EKG no acute ischemia. This EKG is unchanged from previous EKG today. 2125: Repeat troponin negative. Patient remains stable. Vital signs stable. Patient has no complaints. Denies chest pain shortness of breath. Received IV fluids here well-hydrated this time. Patient requesting go home. Given that he has no chest pain, nonischemic EKGs negative troponins. He is well-hydrated now. Has no complaints feels well. Allowed to go home however he understands he has a syncopal episode chest pain or shortness of breath needs return emergency room. Source: Patient - Medical/Surgical History Hx Asthma: No Hx Chronic Respiratory Disease: Yes Hx Diabetes: No Hx Cardiac Disease: No Hx Renal Disease: No Hx Cirrhosis: No Hx Alcoholism: No Hx HIV/AIDS: No Hx Splenectomy or Spleen Trauma: No Other PMH: PE x3, DVT's, Pulmonary HTN, multiple rt foot surgeries, sleep apnea , COPD, venous stasis ulcers, R hip replacement, right and left rotator cuff repair. hx lymphadema RLE that "flares up" - Social History Smoking Status: Former smoker Constitutional: Initial Vital Signs O2 Sat (%) 92 10/03/16 17:15 O2 Delivery Mode Nasal Cannula O2 (L/minute) 4 Allergies/Adverse Reactions: No Known Allergies Allergy (Verified 10/03/16 17:17) Home Medications: Medication Instructions Recorded Omeprazole [Prilosec 20 mg] 20 mg PO DAILY 03/10/14 Albuterol [Proventil Inhaler HFA 1 - 2 puffs IH Q6 PRN 03/13/15 (*)] Apixaban [Eliquis] 5 mg PO BID 08/14/15 Spironolactone [Aldactone 25 MG 25 mg PO DAILY@12 10/01/15 (*)] Acetaminophen [Tylenol 325mg (*)] 325 - 650 mg PO Q6 PRN 02/13/16 Tamsulosin HCl [Flomax 0.4 MG (*)] 0.4 mg PO DAILY 02/13/16 Torsemide [Demadex] 20 mg PO DAILY 02/13/16 oxyCODONE/APAP 5/325 [Percocet 1 tab PO DAILY PRN 02/13/16 5/325 (*)] traZODone [traZODONE 100MG (*)] 100 mg PO HS 02/13/16 Gabapentin [Neurontin 100 MG (*)] 200 mg PO TID #0 cap 02/14/16 Amitriptyline HCl [Elavil 50 mg 50 mg PO HS 06/09/16 (*)] Testosterone Cypionate 200 mg IM Q14D 06/09/16 Acetaminophen [Tylenol 325mg (*)] 650 mg PO Q6HRS #0 tab 06/12/16 Alteplase [Cathflo Activase 2 mg 2 mg IVP PRN PRN #0 vial 06/12/16 (*)] Cyclobenzaprine [Flexeril 10 MG 10 mg PO Q8HRS PRN #0 tab 06/12/16 (*)] Diphenoxylate HCl/Atrop Sulf 1 tab PO QID PRN #0 tab 06/12/16 [Lomotil Tab (*)] Ertapenem [INVanz] 1 gm IV DAILY #0 vial 06/12/16 Famotidine [Pepcid 20 MG (*)] 20 mg PO BID #0 tab 06/12/16 Guar Gum [Benefiber/Nutrisource 1 each PO DAILY #0 pkt 06/12/16 Fiber (*)] Magnesium Citrate [Magnesium 300 ml PO DAILY PRN #0 bottle 06/12/16 Citrate 300 ml (*)] Metoclopramide [Reglan 10 mg IV 10 mg IVP Q6HRS PRN #0 vial 06/12/16 (*)] Ondansetron HCl Pf [Zofran 4 mg 4 mg IVP Q4HRS PRN #0 vial 06/12/16 Inj (*)] Ondansetron Odt [Zofran Odt 4 mg 4 mg PO Q4HRS PRN #0 tab 06/12/16 (*)] Polyethylene Glycol 3350 [Miralax 17 gm PO DAILY PRN #0 pkt 06/12/16 17 gm (*)] Promethazine HCl [Phenergan 12.5 mg IVP Q4HRS PRN #0 inj 06/12/16 Injection] Promethazine HCl [Phenergan Rectal] 25 mg MT Q6HRS PRN #0 suppr 06/12/16 Sennosides/Docusate Sodium 1 - 2 tab PO BID #0 tab 06/12/16 [Senokot-S] Temazepam [Restoril 15 MG (*)] 15 mg PO HS PRN #0 cap 06/12/16 Vancomycin HCl/Normal Saline 250 ml IV Q24H #0 bag 06/12/16 [Vancomycin 1 gm (Premix)] diphenhydrAMINE [Benadryl 25 MG 25 mg PO Q4HRS PRN #0 cap 06/12/16 (*)] diphenhydrAMINE [Benadryl 25 mg IVP Q4HRS PRN #0 inj 06/12/16 Injection] morphINE [morphINE 2mg/ml Inj (*)] 2 - 4 mg IVP Q3HRS PRN #0 syr 06/12/16 traMADol [Ultram 50 mg (*)] 50 mg PO Q6HRS PRN #0 tab 06/12/16 Medical Decision Making - Diagnostics Imaging Results: Imaging Impressions Chest X-Ray 10/03/16 17:15 Impression: 1. No acute pulmonary disease. 2. Consider chest two views when the patient's medical condition permits. Head CT 10/03/16 17:19 Impression: 1. Mild atrophy. 2. No acute hemorrhage, hydrocephalus, or mass effect. 3. Cerebrovascular atherosclerosis. 4. No definite acute infarct. 5. Moderate microvascular ischemic gliosis. 6. No epidural or subdural hematoma. 7. Questionable minimally-depressed nasal bone fracture of indeterminate age. Findings and recommendations discussed with Emergency Department physician, Davey Tay M.D., at 1754 hours, on October 03, 2016. Final report concurs with initial preliminary interpretation. - Data Points Laboratory Results: Laboratory Results 10/03/16 17:00 10/03/16 17:00 10/03/16 10/03/16 10/03/16 20:30 17:00 17:00 WBC RBC Hgb Hct MCV MCH MCHC RDW Plt Count MPV Neut % (Auto) Lymph % (Auto) Boyd % (Auto) Eos % (Auto) Baso % (Auto) Nucleat RBC Rel Count Absolute Neuts (auto) Absolute Lymphs (auto) Absolute Monos (auto) Absolute Eos (auto) Absolute Basos (auto) Absolute Nucleated RBC Immature Gran % Immature Gran # PT 17.8 SEC H SEC (12.0-15.0) INR 1.47 H (0.83-1.16) APTT 30.3 SEC SEC (23.0-38.0) D-Dimer < 0.27 ug/mLFEU ug/mLFEU (0.00-0.50) Sodium 134 mEq/L mEq/L (134-144) Potassium 4.4 mEq/L mEq/L (3.5-5.2) Chloride 98 mEq/L mEq/L (97-110) Carbon Dioxide 26 mEq/l mEq/l (22-31) Anion Gap 10 mEq/L mEq/L (8-16) BUN 28 mg/dL H mg/dL (7-23) Creatinine 1.2 mg/dL mg/dL (0.7-1.3) Estimated GFR 58 Glucose 131 mg/dL H mg/dL (70-100) Calcium 10.3 mg/dL mg/dL (8.5-10.4) Magnesium 2.1 mg/dL mg/dL (1.6-2.3) Total Bilirubin 0.3 mg/dL mg/dL (0.1-1.4) Conjugated Bilirubin 0.1 mg/dL mg/dL (0.0-0.5) Unconjugated Bilirubin 0.2 mg/dL mg/dL (0.0-1.1) AST 23 IU/L IU/L (17-59) ALT 35 IU/L IU/L (21-72) Alkaline Phosphatase 70 IU/L IU/L (38-126) Creatine Kinase 21 IU/L IU/L (0-224) CK-MB (CK-2) Fraction 1.03 ng/mL ng/mL (0-3.19) Troponin I < 0.012 ng/mL ng/mL < 0.012 ng/mL ng/mL (0-0.034) (0-0.034) NT-Pro-B Natriuret Pep 283 pg/mL pg/mL (0-450) Total Protein 6.5 g/dL g/dL (6.3-8.2) Albumin 3.4 g/dL L g/dL (3.5-5.0) Lipase 83.0 IU/L IU/L (23-300) 10/03/16 17:00 WBC 9.79 10^3/uL H 10^3/uL (3.80-9.50) RBC 4.51 10^6/uL 10^6/uL (4.40-6.38) Hgb 11.5 g/dL L g/dL (13.7-17.5) Hct 38.0 % L % (40.0-51.0) MCV 84.3 fL fL (81.5-99.8) MCH 25.5 pg L pg (27.9-34.1) MCHC 30.3 g/dL L g/dL (32.4-36.7) RDW 17.7 % H % (11.5-15.2) Plt Count 290 10^3/uL 10^3/uL (150-400) MPV 8.6 fL L fL (8.7-11.7) Neut % (Auto) 67.8 % % (39.3-74.2) Lymph % (Auto) 10.8 % L % (15.0-45.0) Boyd % (Auto) 14.0 % H % (4.5-13.0) Eos % (Auto) 5.7 % % (0.6-7.6) Baso % (Auto) 0.3 % % (0.3-1.7) Nucleat RBC Rel Count 0.0 % % (0.0-0.2) Absolute Neuts (auto) 6.63 10^3/uL H 10^3/uL (1.70-6.50) Absolute Lymphs (auto) 1.06 10^3/uL 10^3/uL (1.00-3.00) Absolute Monos (auto) 1.37 10^3/uL H 10^3/uL (0.30-0.80) Absolute Eos (auto) 0.56 10^3/uL H 10^3/uL (0.03-0.40) Absolute Basos (auto) 0.03 10^3/uL 10^3/uL (0.02-0.10) Absolute Nucleated RBC 0.00 10^3/uL 10^3/uL (0-0.01) Immature Gran % 1.4 % H % (0.0-1.1) Immature Gran # 0.14 10^3/uL H 10^3/uL (0.00-0.10) PT INR APTT D-Dimer Sodium Potassium Chloride Carbon Dioxide Anion Gap BUN Creatinine Estimated GFR Glucose Calcium Magnesium Total Bilirubin Conjugated Bilirubin Unconjugated Bilirubin AST ALT Alkaline Phosphatase Creatine Kinase CK-MB (CK-2) Fraction Troponin I NT-Pro-B Natriuret Pep Total Protein Albumin Lipase Medications Given: Discontinued Medications Sodium Chloride (Ns) 500 mls @ 1,000 mls/hr IV ONCE ONE PRN Reason: Protocol Stop: 10/03/16 17:44 Last Admin: 10/03/16 17:33 Dose: 500 mls Sodium Chloride (Ns) 500 mls @ 0 mls/hr IV ONCE ONE PRN Reason: Wide Open Stop: 10/03/16 17:17 Last Admin: 10/03/16 18:00 Dose: 500 mls Departure - Departure Disposition: Home, Routine, Self-Care Clinical Impression: Dehydration, Orthostatic hypotension Syncope Qualifiers: Syncope type: unspecified Qualified Code(s): R55 - Syncope and collapse Condition: Good Instructions: Dehydration (ED), Syncope (ED) Additional Instructions: 1. Make sure to stay well-hydrated drink lots of fluids. 2. Return emergency room if you have any worsening symptoms questions or concerns. Referrals: Patient,NotPresent [Unknown] - As per Instructions
[2016-10-03 17:24] LABS: % IMMATURE GRANULYOCYTES 1.4 % (0.0-1.1); ABSOLUTE IMMATURE GRANULOCYTES 0.14 10^3/uL (0.00-0.10); ADD DIFF? NO; ADD MORPH? NO; ADD SCAN? NO; ATYPICAL LYMPHOCYTE FLAG 0 (0-99); FRAGMENT RBC FLAG 0 (0-99); HEMOGLOBIN 11.5 g/dL (13.7-17.5); LEFT SHIFT FLG 0 (0-99); LIPEMIA HEMOLYSIS FLAG 80 (0-99); MEAN CELL HEMOGLOBIN 25.5 pg (27.9-34.1); MEAN CELL HEMOGLOBIN CONCENTR. 30.3 g/dL (32.4-36.7); MEAN CELL VOLUME 84.3 fL (81.5-99.8); MEAN PLATELET VOLUME 8.6 fL (8.7-11.7); PLATELET CLUMPS FLAG 0 (0-99); PLATELET COUNT 290 10^3/uL (150-400); RED BLOOD CELL COUNT 4.51 10^6/uL (4.40-6.38); RED CELL DISTRIBUTION WIDTH 17.7 % (11.5-15.2)
--- NOTE | 2016-10-03 17:28 | CPEKG ---
Heart Rate: 61 RR Interval: 984 P-R Interval: 228 QRSD Interval: 86 QT Interval: 384 QTC Interval: 387 P Devon: 38 QRS Devon: -32 T Wave Devon: 33 EKG Severity - ABNORMAL ECG - EKG Impression: SINUS RHYTHM EKG Impression: FIRST DEGREE AV BLOCK EKG Impression: LEFT AXIS DEVIATION Electronically Signed By: Davey Tay 03-Oct-2016 22:55:14
[2016-10-03 17:36] LABS: APTT 30.3 SEC (23.0-38.0); INR 1.47 (0.83-1.16); PROTIME(PATIENT) 17.8 SEC (12.0-15.0)
[2016-10-03 17:38] LABS: ALANINE AMINOTRANSFERASE 35 IU/L (21-72); ALBUMIN 3.4 g/dL (3.5-5.0); ALKALINE PHOSPHATASE 70 IU/L (38-126); ANION GAP 10 mEq/L (8-16); ASPARTATE AMINOTRANSFERASE 23 IU/L (17-59); BILIRUBIN,TOTAL 0.3 mg/dL (0.1-1.4); BILIRUBIN-CONJUGATED 0.1 mg/dL (0.0-0.5); BILIRUBIN-UNCONJUGATED 0.2 mg/dL (0.0-1.1); CALCIUM 10.3 mg/dL (8.5-10.4); CARBON DIOXIDE 26 mEq/l (22-31); CHLORIDE 98 mEq/L (97-110); CREATININE 1.2 mg/dL (0.7-1.3); GLOMERULAR FILTRATION RATE 58; GLUCOSE 131 mg/dL (70-100); MAGNESIUM 2.1 mg/dL (1.6-2.3); POTASSIUM 4.4 mEq/L (3.5-5.2); SODIUM 134 mEq/L (134-144); TOTAL PROTEIN 6.5 g/dL (6.3-8.2)
[2016-10-03 17:50] LABS: CREATINE KINASE-MB FRACTION 1.03 ng/mL (0-3.19); TROPONIN I < 0.012 ng/mL (0-0.034)
[2016-10-03 20:08] VITALS: O2SAT 95
--- NOTE | 2016-10-03 20:42 | CPEKG ---
Heart Rate: 76 RR Interval: 789 P-R Interval: 216 QRSD Interval: 90 QT Interval: 368 QTC Interval: 414 P Warren: 56 QRS Warren: -43 T Wave Warren: 46 EKG Severity - ABNORMAL ECG - EKG Impression: SINUS RHYTHM EKG Impression: LEFT ANTERIOR FASCICULAR BLOCK Electronically Signed By: Davey Tay 03-Oct-2016 22:55:14
[2016-10-03 21:45] VITALS: BP 133/83; PULSE 74; RESP 20; TEMP 98.4
== END 2016-10-03 21:59 | disposition home or self-care (01) ==
LOC: EDUNIT#
DX: I95.1 Orthostatic hypotension (principal); E86.0 Dehydration; J44.9 Chronic obstructive pulmonary disease, unspecified; I11.0 Hypertensive heart disease with heart failure; I50.9 Heart failure, unspecified; Z79.01 Long term (current) use of anticoagulants; Z87.891 Personal history of nicotine dependence

== ENCOUNTER 2017-07-22 19:23 | Emergency (ER) | payer OTHER ==
[2017-07-22 19:29] VITALS: RESP 18
--- NOTE | 2017-07-22 19:37 | EDPHY ---
H & P Stated Complaint: feet infection Time Seen by Provider: 07/22/17 19:36 HPI/ROS: HPI CHIEF COMPLAINT: Concern for bilateral feet infection HISTORY OF PRESENT ILLNESS: Patient very pleasant 81-year-old male, history of osteomyelitis, chronic lymphedema, COPD on 4 L, MRSA infection, PE and DVT, presents emergency room concerned that both of his feet are further infected. He states he has home health nurse that does with bandage changes in wound care and was told that his feet are looking worse and that he should go the emergency room for further evaluation. The patient does report that both feet hurt him worse and he has worsening redness and swelling worse on his right foot than left foot. Denies any fever. Past Medical History: History of osteomyelitis, PE/DVT, MRSA, COPD on 4 L Past Surgical History: Multiple amputations of the right foot. Social History: Denies drugs alcohol tobacco. Family History: Noncontributory ROS REVIEW OF SYSTEMS: A comprehensive 10 point review of systems is otherwise negative aside from elements mentioned in the history of present illness. Exam Constitutional triage nursing summary reviewed, vital signs reviewed, awake/ alert. Eyes normal conjunctivae and sclera, EOMI, PERRLA. HENT normal inspection, atraumatic, moist mucus membranes, no epistaxis, neck supple/ no meningismus, no raccoon eyes. Respiratory clear to auscultation bilaterally, normal breath sounds, no respiratory distress, no wheezing. Cardiovascular rate normal, regular rhythm, no murmur, no edema, distal pulses normal. Gastrointestinal soft, non-tender, no rebound, no guarding, normal bowel sounds, no distension, no pulsatile mass. Genitourinary no CVA tenderness. Musculoskeletal right lower extremity: Good distal pulse, the right foot is swollen and erythematous, the 3rd digit is still intact, is erythematous and appears infected, no crepitus, no gas on exam, left foot: Left lateral foot there is an area of erythema and tenderness no hard nodule, otherwise neurovascular intact, no midline vertebral tenderness, full range of motion, no calf swelling, no tenderness of extremities, no meningismus, good pulses, neurovascularly intact. Skin pink, warm, & dry, no rash, skin atraumatic. Neurologic awake, alert and oriented x 3, AAOx3, moves all 4 extremities equally, motor intact, sensory intact, CN II-XII intact, normal cerebellar, normal vision, normal speech. Psychiatric normal mood/affect. Heme/Lymph/Immune no lymphadenopathy. Differential Diagnosis: Includes but is not limited to in a particular order bilateral foot osteomyelitis, worsening foot infection, cellulitis, MRSA, osteo Medical Decision Making: Plan for this patient IV establishment blood draw, check inflammatory markers, x-ray both feet, most likely need for admission for antibiotic care. Re-evaluation: 2131: X-rays have been reviewed both feet. There is no evidence of subcutaneous gas or osteomyelitis. Additionally blood work has been reviewed no high white count, inflammatory markers are normal. I did offer the patient admission for antibiotic therapy of his infected feet bilaterally however he has declined he has a follow-up appoint with this activities specialist on Tuesday. He would like to go home. I will re-dress his feet. Additionally will place on Keflex antibiotic. I do recommend he has close follow-up with this activities specialist. Return precautions discussed. He understands return emergency room if he has worsening symptoms questions or concerns. Source: Patient - Personal History Current Tetanus/Diphtheria Vaccine: Yes Current Tetanus Diphtheria and Acellular Pertussis (TDAP): Yes - Medical/Surgical History Hx Asthma: No Hx Chronic Respiratory Disease: Yes Hx Diabetes: No Hx Cardiac Disease: No Hx Renal Disease: No Hx Cirrhosis: No Hx Alcoholism: No Hx HIV/AIDS: No Hx Splenectomy or Spleen Trauma: No Other PMH: PE x3, DVT's, Pulmonary HTN, multiple rt foot surgeries, sleep apnea , COPD, venous stasis ulcers, R hip replacement, right and left rotator cuff repair. hx lymphadema RLE that "flares up" - Social History Smoking Status: Former smoker Constitutional: Initial Vital Signs Temperature (C) 36.3 C 07/22/17 19:27 Heart Rate 88 07/22/17 19:27 Respiratory Rate 18 07/22/17 19:27 Blood Pressure 132/66 H 07/22/17 19:27 O2 Sat (%) 88 L 07/22/17 19:27 O2 Delivery Mode Room Air Allergies/Adverse Reactions: No Known Allergies Allergy (Verified 10/03/16 17:17) Home Medications: Medication Instructions Recorded Omeprazole [Prilosec 20 mg] 20 mg PO DAILY 03/10/14 Albuterol [Proventil Inhaler HFA 1 - 2 puffs IH Q6 PRN 03/13/15 (*)] Apixaban [Eliquis] 5 mg PO BID 08/14/15 Spironolactone [Aldactone 25 MG 25 mg PO DAILY@12 10/01/15 (*)] Acetaminophen [Tylenol 325mg (*)] 325 - 650 mg PO Q6 PRN 02/13/16 Tamsulosin HCl [Flomax 0.4 MG (*)] 0.4 mg PO DAILY 02/13/16 Torsemide [Demadex] 20 mg PO DAILY 02/13/16 oxyCODONE/APAP 5/325 [Percocet 1 tab PO DAILY PRN 02/13/16 5/325 (*)] traZODone [traZODONE 100MG (*)] 100 mg PO HS 02/13/16 Gabapentin [Neurontin 100 MG (*)] 200 mg PO TID #0 cap 02/14/16 Amitriptyline HCl [Elavil 50 mg 50 mg PO HS 06/09/16 (*)] Testosterone Cypionate 200 mg IM Q14D 06/09/16 Acetaminophen [Tylenol 325mg (*)] 650 mg PO Q6HRS #0 tab 06/12/16 Alteplase [Cathflo Activase 2 mg 2 mg IVP PRN PRN #0 vial 06/12/16 (*)] Cyclobenzaprine [Flexeril 10 MG 10 mg PO Q8HRS PRN #0 tab 06/12/16 (*)] Diphenoxylate HCl/Atrop Sulf 1 tab PO QID PRN #0 tab 06/12/16 [Lomotil Tab (*)] Ertapenem [INVanz] 1 gm IV DAILY #0 vial 06/12/16 Famotidine [Pepcid 20 MG (*)] 20 mg PO BID #0 tab 06/12/16 Guar Gum [Benefiber/Nutrisource 1 each PO DAILY #0 pkt 06/12/16 Fiber (*)] Magnesium Citrate [Magnesium 300 ml PO DAILY PRN #0 bottle 06/12/16 Citrate 300 ml (*)] Metoclopramide [Reglan 10 mg IV 10 mg IVP Q6HRS PRN #0 vial 06/12/16 (*)] Ondansetron HCl Pf [Zofran 4 mg 4 mg IVP Q4HRS PRN #0 vial 06/12/16 Inj (*)] Ondansetron Odt [Zofran Odt 4 mg 4 mg PO Q4HRS PRN #0 tab 06/12/16 (*)] Polyethylene Glycol 3350 [Miralax 17 gm PO DAILY PRN #0 pkt 06/12/16 17 gm (*)] Promethazine HCl [Phenergan 12.5 mg IVP Q4HRS PRN #0 inj 06/12/16 Injection] Promethazine HCl [Phenergan Rectal] 25 mg UT Q6HRS PRN #0 suppr 06/12/16 Sennosides/Docusate Sodium 1 - 2 tab PO BID #0 tab 06/12/16 [Senokot-S] Temazepam [Restoril 15 MG (*)] 15 mg PO HS PRN #0 cap 06/12/16 Vancomycin HCl/Normal Saline 250 ml IV Q24H #0 bag 06/12/16 [Vancomycin 1 gm (Premix)] diphenhydrAMINE [Benadryl 25 MG 25 mg PO Q4HRS PRN #0 cap 06/12/16 (*)] diphenhydrAMINE [Benadryl 25 mg IVP Q4HRS PRN #0 inj 06/12/16 Injection] morphINE [morphINE 2mg/ml Inj (*)] 2 - 4 mg IVP Q3HRS PRN #0 syr 06/12/16 traMADol [Ultram 50 mg (*)] 50 mg PO Q6HRS PRN #0 tab 06/12/16 Cephalexin [Keflex] 500 mg PO Q6H #28 cap 07/22/17 Medical Decision Making - Diagnostics Imaging Results: Imaging Impressions Foot X-Ray 07/22/17 19:46 Impression: No evidence of osteomyelitis. Foot X-Ray 07/22/17 20:12 Impression: No subcutaneous gas or evidence of osteomyelitis. - Data Points Laboratory Results: Laboratory Results 07/22/17 20:20 07/22/17 20:20 07/22/17 07/22/17 07/22/17 20:20 20:20 20:20 WBC 7.43 10^3/uL 10^3/uL (3.80-9.50) RBC 5.23 10^6/uL 10^6/uL (4.40-6.38) Hgb 14.6 g/dL g/dL (13.7-17.5) Hct 47.4 % % (40.0-51.0) MCV 90.6 fL fL (81.5-99.8) MCH 27.9 pg pg (27.9-34.1) MCHC 30.8 g/dL L g/dL (32.4-36.7) RDW 20.9 % H % (11.5-15.2) Plt Count 237 10^3/uL 10^3/uL (150-400) MPV 8.8 fL fL (8.7-11.7) Neut % (Auto) 57.2 % % (39.3-74.2) Lymph % (Auto) 26.4 % % (15.0-45.0) [place] % (Auto) 9.8 % % (4.5-13.0) Eos % (Auto) 5.1 % % (0.6-7.6) Baso % (Auto) 1.1 % % (0.3-1.7) Nucleat RBC Rel Count 0.0 % % (0.0-0.2) Absolute Neuts (auto) 4.25 10^3/uL 10^3/uL (1.70-6.50) Absolute Lymphs (auto) 1.96 10^3/uL 10^3/uL (1.00-3.00) Absolute Monos (auto) 0.73 10^3/uL 10^3/uL (0.30-0.80) Absolute Eos (auto) 0.38 10^3/uL 10^3/uL (0.03-0.40) Absolute Basos (auto) 0.08 10^3/uL 10^3/uL (0.02-0.10) Absolute Nucleated RBC 0.00 10^3/uL 10^3/uL (0-0.01) Immature Gran % 0.4 % % (0.0-1.1) Immature Gran # 0.03 10^3/uL 10^3/uL (0.00-0.10) Platelet Estimate ADEQUATE (ADEQ) Polychromasia 1+ H Microcytic Cells 1+ H Elliptocytes 1+ H ESR 9 MM/HR MM/HR (0-20) VBG Lactic Acid 1.9 mmol/L mmol/L (0.7-2.1) Sodium 144 mEq/L mEq/L (135-145) Potassium 4.9 mEq/L mEq/L (3.5-5.2) Chloride 106 mEq/L mEq/L (97-110) Carbon Dioxide 28 mEq/l mEq/l (22-31) Anion Gap 10 mEq/L mEq/L (8-16) BUN 20 mg/dL mg/dL (7-23) Creatinine 1.1 mg/dL mg/dL (0.7-1.3) Estimated GFR > 60 Glucose 105 mg/dL H mg/dL (70-100) Calcium 11.1 mg/dL H mg/dL (8.5-10.4) Phosphorus 2.5 mg/dL mg/dL (2.5-4.5) C-Reactive Protein 9.7 mg/L mg/L (<10.0) Departure - Departure Disposition: Home, Routine, Self-Care Clinical Impression: Cellulitis Qualifiers: Site of cellulitis: other site Qualified Code(s): L03.818 - Cellulitis of other sites Condition: Good Instructions: Cellulitis (ED) Additional Instructions: 1. Follow up with her primary care doctor or foot doctor. 2. Take antibiotics as prescribed. 3. Return emergency room if there is any worsening symptoms questions or concerns. Referrals: Sameer Velazquez MD [Primary Care Provider] - As per Instructions Prescriptions: Cephalexin [Keflex] 500 mg PO Q6H #28 cap
[2017-07-22 20:37] LABS: PLATELET COUNT 237 10^3/uL (150-400)
[2017-07-22] MEDS ORDERED: CEPHALEXIN 500MG PREPACK#4 BTL TAKEHOME ONE (21:29)
[2017-07-22] MEDS ORDERED: CEPHALEXIN 500 MG CAP PO ONE (21:29)
[2017-07-22 22:16] VITALS: BP 113/76; PULSE 69; TEMP 97.9; O2SAT 91
== END 2017-07-22 22:18 | disposition home or self-care (01) ==
DX: L03.115 Cellulitis of right lower limb (principal); L03.116 Cellulitis of left lower limb; I10 Essential (primary) hypertension; J44.9 Chronic obstructive pulmonary disease, unspecified; Z87.891 Personal history of nicotine dependence

== ENCOUNTER 2017-08-29 13:49 | Emergency (ER) | payer OTHER ==
--- NOTE | 2017-08-29 14:34 | EDPHY ---
H & P Stated Complaint: 2nd toe left foot amputated 08/24/17, now has swelling to foot and ankle Time Seen by Provider: 08/29/17 14:33 HPI/ROS: HPI: This 82-year-old male who presents with Chief Complaint: 2nd toe left foot amputated 08/24/17, now has swelling to foot and ankle Location: Right lower extremity Quality: Swelling Duration: Several days Signs and Symptoms: No bleeding, no radiation, no numbness, no weakness, no tingling, no incontinence, + decreased range of motion, + swelling, + pain, no fever Timing: Rapidly worsened Severity: Moderate to severe Context: Patient has a history of PE x3 and DVTs on Eliquis times 2-3 years, right lower extremity lymphedema, COPD on supplemental home O2 presents with complaints of right calf swelling greater than baseline since his 2nd left toe amputation on 08/24/[address] Berrios. Patient reports that he wishes they would a wrapped his right lower extremity status post surgery due to his history of lymphedema in propensity for swelling. Compliant on Eliquis per patient. Denies any shortness of breath/chest pain/palpitations. Is not on any antibiotics chronically. Has an appointment with data processing specialist tomorrow morning for follow-up. Patient has a neighbor who is a nurse that performs daily wound care and dressing changes for him. Patient reports that he has two DVTs in his right lower extremity that have been there for several years. Modifying Factors: Regular home medications including Eliquis Comment: ROS: see HPI Constitutional: No fever, no chills, no weight loss Eyes: No blurred vision Respiratory: No shortness of breath, no cough Cardiovascular: No chest pain Gastrointestinal: No nausea, no vomiting no diarrhea Genitourinary: No dysuria Extremities: No myalgias Neurologic: No weakness, no numbness Skin: No rashes Hematologic: No bruising, no bleeding MEDICAL/SURGICAL/SOCIAL HISTORY: Medical/surgical history: PE x3, DVT's, Pulmonary HTN, multiple rt foot surgeries, sleep apnea, COPD, venous stasis ulcers, R hip replacement, right and left rotator cuff repair, hx lymphedema RLE that "flares up". 2nd toe left foot amp 08/24/17. Social history: Retired. CONSTITUTIONAL: Extremely polite elderly white male, nontoxic in appearance, awake and alert, no obvious distress HEENT: Atraumatic and normocephalic, PERRL, EOMI. Nares patent; no rhinorrhea; no nasal mucosal edema. Tympanic membranes clear. Oropharynx clear, no exudate and moist pink mucosa. Airway patent. No lymphadenopathy. No meningismus. Cardiovascular: Normal S1/S2, regular rate, regular rhythm, without murmur rub or gallop. PULMONARY/CHEST: Symmetrical and nontender. Clear to auscultation bilaterally. Good air movement. No accessory muscle usage. ABDOMEN: Soft, nondistended, nontender, no rebound, no guarding, no peritoneal signs, no masses or organomegaly. No CVAT. EXTREMITIES: 2/2 pulses, strength 5/5, right calf is 3 times the size of the left calf with scaling and chronic venous stasis changes. Right and left feet are both wrapped in dressings. Cast shoe on both feet no deformities, no clubbing, no cyanosis. NEUROLOGICAL: no focal neuro deficits. GCS 15. SKIN: Warm and dry, no erythema. no rash. Good capillary refill. Source: Patient, Old records Exam Limitations: No limitations - Personal History Current Tetanus Diphtheria and Acellular Pertussis (TDAP): Yes - Medical/Surgical History Hx Asthma: No Hx Chronic Respiratory Disease: Yes Hx Diabetes: No Hx Cardiac Disease: No Hx Renal Disease: No Hx Cirrhosis: No Hx Alcoholism: No Hx HIV/AIDS: No Hx Splenectomy or Spleen Trauma: No Other PMH: PE x3, DVT's, Pulmonary HTN, multiple rt foot surgeries, sleep apnea , COPD, venous stasis ulcers, R hip replacement, right and left rotator cuff repair. hx lymphadema RLE that "flares up". 2nd toe left foot amp 08/24/17. - Social History Smoking Status: Former smoker Constitutional: Initial Vital Signs Temperature (C) 36.5 C 08/29/17 13:52 Heart Rate 97 08/29/17 13:52 Respiratory Rate 18 08/29/17 13:52 Blood Pressure 111/67 08/29/17 13:52 O2 Sat (%) 88 L 08/29/17 13:52 O2 Delivery Mode Nasal Cannula O2 (L/minute) 2 Allergies/Adverse Reactions: No Known Allergies Allergy (Verified 10/03/16 17:17) Home Medications: Medication Instructions Recorded Omeprazole [Prilosec 20 mg] 20 mg PO DAILY 03/10/14 Albuterol [Proventil Inhaler HFA 1 - 2 puffs IH Q6 PRN 03/13/15 (*)] Apixaban [Eliquis] 5 mg PO BID 08/14/15 Spironolactone [Aldactone 25 MG 25 mg PO DAILY@12 10/01/15 (*)] Acetaminophen [Tylenol 325mg (*)] 325 - 650 mg PO Q6 PRN 02/13/16 Tamsulosin HCl [Flomax 0.4 MG (*)] 0.4 mg PO DAILY 02/13/16 Torsemide [Demadex] 20 mg PO DAILY 02/13/16 oxyCODONE/APAP 5/325 [Percocet 1 tab PO DAILY PRN 02/13/16 5325 (*)] traZODone [traZODONE 100MG (*)] 100 mg PO HS 02/13/16 Gabapentin [Neurontin 100 MG (*)] 200 mg PO TID #0 cap 02/14/16 Amitriptyline HCl [Elavil 50 mg 50 mg PO HS 06/09/16 (*)] Testosterone Cypionate 200 mg IM Q14D 06/09/16 Acetaminophen [Tylenol 325mg (*)] 650 mg PO Q6HRS #0 tab 06/12/16 Alteplase [Cathflo Activase 2 mg 2 mg IVP PRN PRN #0 vial 06/12/16 (*)] Cyclobenzaprine [Flexeril 10 MG 10 mg PO Q8HRS PRN #0 tab 06/12/16 (*)] Diphenoxylate HCl/Atrop Sulf 1 tab PO QID PRN #0 tab 06/12/16 [Lomotil Tab (*)] Ertapenem [INVanz] 1 gm IV DAILY #0 vial 06/12/16 Famotidine [Pepcid 20 MG (*)] 20 mg PO BID #0 tab 06/12/16 Guar Gum [Benefiber/Nutrisource 1 each PO DAILY #0 pkt 06/12/16 Fiber (*)] Magnesium Citrate [Magnesium 300 ml PO DAILY PRN #0 bottle 06/12/16 Citrate 300 ml (*)] Metoclopramide [Reglan 10 mg IV 10 mg IVP Q6HRS PRN #0 vial 06/12/16 (*)] Ondansetron HCl Pf [Zofran 4 mg 4 mg IVP Q4HRS PRN #0 vial 06/12/16 Inj (*)] Ondansetron Odt [Zofran Odt 4 mg 4 mg PO Q4HRS PRN #0 tab 06/12/16 (*)] Polyethylene Glycol 3350 [Miralax 17 gm PO DAILY PRN #0 pkt 06/12/16 17 gm (*)] Promethazine HCl [Phenergan 12.5 mg IVP Q4HRS PRN #0 inj 06/12/16 Injection] Promethazine HCl [Phenergan Rectal] 25 mg ME Q6HRS PRN #0 suppr 06/12/16 Sennosides/Docusate Sodium 1 - 2 tab PO BID #0 tab 06/12/16 [Senokot-S] Temazepam [Restoril 15 MG (*)] 15 mg PO HS PRN #0 cap 06/12/16 Vancomycin HCl/Normal Saline 250 ml IV Q24H #0 bag 06/12/16 [Vancomycin 1 gm (Premix)] diphenhydrAMINE [Benadryl 25 MG 25 mg PO Q4HRS PRN #0 cap 06/12/16 (*)] diphenhydrAMINE [Benadryl 25 mg IVP Q4HRS PRN #0 inj 06/12/16 Injection] morphINE [morphINE 2mg/ml Inj (*)] 2 - 4 mg IVP Q3HRS PRN #0 syr 06/12/16 traMADol [Ultram 50 mg (*)] 50 mg PO Q6HRS PRN #0 tab 06/12/16 Cephalexin [Keflex] 500 mg PO Q6H #28 cap 07/22/17 Medical Decision Making - Diagnostics Imaging Results: Imaging Impressions Extremity Venous Study 08/29/17 14:41 Impression: 1. Nonocclusive mural thrombus within the femoral vein along the same segment as detected November 2015. 2. Popliteal vein occlusion. 3. Suboptimal evaluation of the calf veins due to extensive soft tissue edema. ED Course/Re-evaluation: Vital signs stable. Patient has close follow-up with Podiatry tomorrow for postop appointment. Patient is requesting for right lower extremity ultrasound only and has politely declined any laboratory studies or x-ray images. 1538: Called by radiologist who advised ultrasound shows: 1. Nonocclusive mural thrombus within the femoral vein along the same segment as detected November 2015. 2. Popliteal vein occlusion. 3. Suboptimal evaluation of the calf veins due to extensive soft tissue edema. No signs of neurovascular compromise/tenting of skin/compartment syndrome/ extremities and joints examined above and below area of concern and are neurovascularly intact/cellulitis. Offer patient admission for overnight therapy versus outpatient wound clinic follow-up. Patient politely declines and prefers to keep follow-up appointment tomorrow with Podiatry. Elevate lower extremities. Would benefit from Unna boot on the right lower extremity after clearance from Podiatry. This patient was seen under the supervision of my secondary supervising physician. I evaluated care for this patient independently. Differential Diagnosis: Leg swelling including but not limited to hypoalbuminemia, congestive heart failure, cor pulmonale, chronic venous stasis and DVT. Departure - Departure Disposition: Home, Routine, Self-Care Clinical Impression: History of amputation of toe, Lymphedema of right lower extremity, Chronic anticoagulation Chronic deep venous thrombosis Qualifiers: DVT location: lower extremity Affected thrombotic vein of extremity: popliteal Laterality: right Qualified Code(s): I82.531 - Chronic embolism and thrombosis of right popliteal vein Condition: Good Instructions: Deep Vein Thrombosis (ED), Lymphedema (ED), Venous Insufficiency (DC) Additional Instructions: Please elevate your right lower extremity as much as possible. It would be beneficial to you to wrap right lower extremity to reduce swelling. Continue to take Eliquis twice daily due to history of chronic DVT. Referrals: Sameer Velazquez MD [Primary Care Provider] - As per Instructions Siddharth Berrios MD [Doctor of Podiatric Medicine] - 08/30/17
[2017-08-29 16:01] VITALS: BP 118/77
== END 2017-08-29 16:01 | disposition home or self-care (01) ==
DX: I82.531 Chronic embolism and thrombosis of right popliteal vein (principal); I89.0 Lymphedema, not elsewhere classified; J44.9 Chronic obstructive pulmonary disease, unspecified; Z79.01 Long term (current) use of anticoagulants; Z87.891 Personal history of nicotine dependence; Z89.422 Acquired absence of other left toe(s)

== ENCOUNTER 2018-03-07 17:30 | Inpatient (IN) | payer OTHER ==
--- NOTE | 2018-03-07 17:48 | EDPHY ---
H & P Time Seen by Provider: 03/07/18 17:45 HPI/ROS: CHIEF COMPLAINT: Generalized weakness, right leg redness HISTORY OF PRESENT ILLNESS: 82-year-old male presents with generalized weakness and right leg redness. He tripped and fell 3 days ago. He did not injure himself during the fall. He was unable to get off the floor because of generalized weakness. He ultimately was able to call his neighbor, who found him on the floor just prior to arrival. His chronic lymphedema in the right lower extremity. The leg is more red and painful than usual. No known fever and no chills. REVIEW OF SYSTEMS: complete 10 point ROS reviewed and is negative except for the noted elements in the HPI Source: Patient - Medical/Surgical History Hx Asthma: No Hx Chronic Respiratory Disease: Yes Hx Diabetes: No Hx Cardiac Disease: No Hx Renal Disease: No Hx Cirrhosis: No Hx Alcoholism: No Hx HIV/AIDS: No Hx Splenectomy or Spleen Trauma: No Other PMH: PE x3, DVT's, Pulmonary HTN, multiple rt foot surgeries, sleep apnea , COPD, venous stasis ulcers, R hip replacement, right and left rotator cuff repair. hx lymphadema RLE that "flares up". 2nd toe left foot amp 08/24/17. - Social History Smoking Status: Former smoker Additional Social History: Lives alone - Physical Exam Exam: General Appearance: Alert, pleasant Head: Normal inspection, no swelling or tenderness Eyes: Pupils equal and round, no conjunctival pallor or injection ENT, Mouth: Mucous membranes moist Neck: Normal inspection, no tenderness, range of motion without pain Respiratory: Lungs are clear to auscultation Cardiovascular: Regular rate and rhythm Gastrointestinal: Abdomen is soft and nontender Neurological: A&O, nonfocal exam Skin: Warm and dry Extremities: Right lower extremity-2+ edema, erythema and warmth extending from the foot up to the proximal lower leg Psychiatric: Mood and affect normal Constitutional: Initial Vital Signs Temperature (C) 36.5 C 03/07/18 17:44 Heart Rate 90 03/07/18 17:44 Respiratory Rate 20 03/07/18 17:44 Blood Pressure 130/78 H 03/07/18 17:44 O2 Sat (%) 94 03/07/18 17:44 O2 Delivery Mode Nasal Cannula O2 (L/minute) 4 Allergies/Adverse Reactions: No Known Allergies Allergy (Verified 10/03/16 17:17) Home Medications: Medication Instructions Recorded Albuterol [Proventil Inhaler HFA 1 - 2 puffs IH Q6 PRN 03/13/15 (*)] Apixaban [Eliquis] 5 mg PO BID 08/14/15 Spironolactone [Aldactone 25 MG 25 mg PO DAILY@12 10/01/15 (*)] Acetaminophen [Tylenol 325mg (*)] 325 - 650 mg PO Q6 PRN 02/13/16 Tamsulosin HCl [Flomax 0.4 MG (*)] 0.4 mg PO DAILY 02/13/16 traZODone [traZODONE 100MG (*)] 50 mg PO HS 02/13/16 Testosterone Cypionate 200 mg IM Q21D 06/09/16 DULoxetine [Cymbalta 60 MG (*)] 60 mg PO DAILY 03/07/18 Furosemide [Furosemide] 20 mg PO DAILY 03/07/18 Gabapentin [Neurontin 100 MG (*)] 100 mg PO HS 03/07/18 Methylphenidate HCl [Ritalin 5mg 5 mg PO DAILY 03/07/18 (*)] Medical Decision Making - Diagnostics EKG Interpretation: EKG interpreted by me reveals normal sinus rhythm, rate 81, low voltage in the limb leads. Interpretation: Abnormal EKG Imaging Results: Imaging Impressions Chest X-Ray 03/07/18 17:35 Impression: No evidence of consolidative airspace opacity to suggest pneumonia. Imaging: I viewed and interpreted images myself ED Course/Re-evaluation: This patient presents with generalized weakness and right lower extremity erythema, consistent with cellulitis. On physical exam, he does not especially look dehydrated. Mucous membranes are moist, he is not tachycardic or hypotensive. He does not meet SIRS criteria. However, initial lactate is elevated at 3.5. This is likely related to prolonged down time. IV normal saline 1 L given. Will recheck lactate after a liter of normal saline. Blood cultures were drawn and Ancef 1 g IV given. Repeat lactate is 2.5. Heart rate and blood pressure remain normal. The hospitalist service was consulted for admission. Differential Diagnosis: Differential diagnosis includes though it is not limited to fracture, dislocation, tendon disruption, neurovascular compromise. - Data Points Laboratory Results: Laboratory Results 03/07/18 17:50 03/07/18 17:50 03/07/18 03/07/18 03/07/18 17:56 17:54 17:50 WBC RBC Hgb POC Hgb 15.6 gm/dL gm/dL (13.7-17.5) Hct POC Hct 46 % % (40-51) MCV MCH MCHC RDW Plt Count MPV Neut % (Auto) Lymph % (Auto) Cameron % (Auto) Eos % (Auto) Baso % (Auto) Nucleat RBC Rel Count Absolute Neuts (auto) Absolute Lymphs (auto) Absolute Monos (auto) Absolute Eos (auto) Absolute Basos (auto) Absolute Nucleated RBC Immature Gran % Immature Gran # VBG Lactic Acid 3.5 mmol/L H mmol/L (0.7-2.1) POC Sodium 138 mEq/L mEq/L (135-145) Sodium POC Potassium 4.0 mEq/L mEq/L (3.3-5.0) Potassium POC Chloride 101 mEq/L mEq/L (97-110) Chloride Carbon Dioxide Anion Gap POC BUN 16 mg/dL mg/dL (7-23) BUN Creatinine POC Creatinine 1.0 mg/dL mg/dL (0.7-1.3) Estimated GFR Glucose POC Glucose 122 mg/dL H mg/dL (70-100) Calcium Creatine Kinase POC Troponin I 0.02 ng/mL ng/mL (0.00-0.08) 03/07/18 03/07/18 17:50 17:50 WBC 18.24 10^3/uL H 10^3/uL (3.80-9.50) RBC 4.59 10^6/uL 10^6/uL (4.40-6.38) Hgb 13.8 g/dL g/dL (13.7-17.5) POC Hgb Hct 43.1 % % (40.0-51.0) POC Hct MCV 93.9 fL fL (81.5-99.8) MCH 30.1 pg pg (27.9-34.1) MCHC 32.0 g/dL L g/dL (32.4-36.7) RDW 18.3 % H % (11.5-15.2) Plt Count 240 10^3/uL 10^3/uL (150-400) MPV 9.3 fL fL (8.7-11.7) Neut % (Auto) 83.7 % H % (39.3-74.2) Lymph % (Auto) 6.6 % L % (15.0-45.0) Cameron % (Auto) 7.8 % % (4.5-13.0) Eos % (Auto) 0.1 % L % (0.6-7.6) Baso % (Auto) 0.3 % % (0.3-1.7) Nucleat RBC Rel Count 0.0 % % (0.0-0.2) Absolute Neuts (auto) 15.25 10^3/uL H 10^3/uL (1.70-6.50) Absolute Lymphs (auto) 1.21 10^3/uL 10^3/uL (1.00-3.00) Absolute Monos (auto) 1.43 10^3/uL H 10^3/uL (0.30-0.80) Absolute Eos (auto) 0.01 10^3/uL L 10^3/uL (0.03-0.40) Absolute Basos (auto) 0.06 10^3/uL 10^3/uL (0.02-0.10) Absolute Nucleated RBC 0.00 10^3/uL 10^3/uL (0-0.01) Immature Gran % 1.5 % H % (0.0-1.1) Immature Gran # 0.28 10^3/uL H 10^3/uL (0.00-0.10) VBG Lactic Acid POC Sodium Sodium 136 mEq/L mEq/L (135-145) POC Potassium Potassium 4.3 mEq/L mEq/L (3.3-5.0) POC Chloride Chloride 98 mEq/L mEq/L (97-110) Carbon Dioxide 27 mEq/l mEq/l (22-31) Anion Gap 11 mEq/L mEq/L (6-14) POC BUN BUN 17 mg/dL mg/dL (7-23) Creatinine 1.0 mg/dL mg/dL (0.7-1.3) POC Creatinine Estimated GFR > 60 Glucose 119 mg/dL H mg/dL (70-100) POC Glucose Calcium 10.5 mg/dL H mg/dL (8.5-10.4) Creatine Kinase 101 IU/L IU/L (0-224) POC Troponin I Medications Given: Sodium Chloride (Ns) 1,000 mls @ 150 mls/hr IV CONT CALIXTO Stop: 03/08/18 08:29 Last Admin: 03/07/18 21:03 Dose: 1,000 mls Discontinued Medications Sodium Chloride (Ns) 1,000 mls @ 0 mls/hr IV ONCE ONE PRN Reason: Wide Open Stop: 03/07/18 18:03 Last Admin: 03/07/18 18:02 Dose: 1,000 mls Cefazolin Sodium/Dextrose (Ancef 1 Gm (Premix)) 50 mls @ 200 mls/hr IV EDNOW ONE PRN Reason: Protocol Stop: 03/07/18 18:32 Last Admin: 03/07/18 18:33 Dose: 50 mls Sodium Chloride (Ns) 1,000 mls @ 0 mls/hr IV ONCE ONE PRN Reason: Wide Open Stop: 03/07/18 18:35 Last Admin: 03/07/18 18:37 Dose: 1,000 mls Point of Care Test Results: Chemistry 03/07/18 03/07/18 17:56 17:54 POC Sodium 138 mEq/L mEq/L (135-145) POC Potassium 4.0 mEq/L mEq/L (3.3-5.0) POC Chloride 101 mEq/L mEq/L (97-110) POC BUN 16 mg/dL mg/dL (7-23) POC Creatinine 1.0 mg/dL mg/dL (0.7-1.3) POC Glucose 122 mg/dL H mg/dL (70-100) POC Troponin I 0.02 ng/mL ng/mL (0.00-0.08) ISTAT H&H 03/07/18 17:56 POC Hgb 15.6 gm/dL gm/dL (13.7-17.5) POC Hct 46 % % (40-51) Departure - Departure Disposition: [facility]
[2018-03-07] MEDS ORDERED: NS 1,000 ML IV ONE ×2 (18:02→18:34)
[2018-03-07 18:17] LABS: PLATELET COUNT 240 10^3/uL (150-400)
[2018-03-07 18:27] LABS: CREATINE KINASE 101 IU/L (0-224)
--- NOTE | 2018-03-07 18:42 | CPEKG ---
Test Reason : OPEN Blood Pressure : / mmHG Vent. Rate : 081 BPM Atrial Rate : 081 BPM P-R Int : 210 ms QRS Dur : 090 ms QT Int : 351 ms P-R-T Axes : 041 -25 052 degrees QTc Int : 408 ms Sinus rhythm Borderline left axis deviation Low voltage, extremity and precordial leads Confirmed by Rosemarie Cespedes ([id number]) on 03/07/2018 6:41:34 PM Referred By: Confirmed By:Rosemarie Cespedes
--- NOTE | 2018-03-07 19:23 | PDGENHP ---
History and Physical - Chief Complaint R leg infection - History of Present Illness Hipolito Mistry is a 82 yo M with a PMHx of PE x3, DVT's, lymphadema RLE, pulmonary HTN, multiple rt foot surgeries, sleep apnea, COPD, venous stasis ulcers, R hip replacement, right and left rotator cuff repair who presents to [facility] after fall on Tuesday. Patient reports he tripped and fell on Tuesday and was unable to get up until a neighbor found him today. He reports that his RLE has been getting more red and swollen over the last few days. He has not been able to eat or drink over that time period as well. He reports generalized weakness, but denies chest pain, shortness of breath, palpitations, d/c, n/v. History Information - Allergies/Home Medication List Allergies/Adverse Reactions: No Known Allergies Allergy (Verified 10/03/16 17:17) Home Medications: Omeprazole [Prilosec 20 mg] 20 mg PO DAILY 03/10/14 [Last Taken 05/09/16] Albuterol [Proventil Inhaler HFA (*)] 1 - 2 puffs IH Q6 PRN 03/13/15 [Last Taken 1 Week Ago ~05/03/16] Apixaban [Eliquis] 5 mg PO BID 08/14/15 [Last Taken 06/09/16] Spironolactone [Aldactone 25 MG (*)] 25 mg PO DAILY@12 10/01/15 [Last Taken ] Acetaminophen [Tylenol 325mg (*)] 325 - 650 mg PO Q6 PRN 02/13/16 [Last Taken ] Tamsulosin HCl [Flomax 0.4 MG (*)] 0.4 mg PO DAILY 02/13/16 [Last Taken 05/09/16 ] Torsemide [Demadex] 20 mg PO DAILY 02/13/16 [Last Taken 06/09/16] oxyCODONE/APAP 5/325 [Percocet 5/325 (*)] 1 tab PO DAILY PRN 02/13/16 [Last Taken 1 Week Ago ~05/03/16] traZODone [traZODONE 100MG (*)] 100 mg PO HS 02/13/16 [Last Taken 05/09/16] Amitriptyline HCl [Elavil 50 mg (*)] 50 mg PO HS 06/09/16 [Last Taken 06/08/16] Testosterone Cypionate 200 mg IM Q14D 06/09/16 [Last Taken 06/08/16] I have personally reviewed and updated: family history, medical history, social history, surgical history - Past Medical History COPD, DVT, pulmonary embolism - Family History Positive for: non-pertinent - Social History Smoking Status: Former smoker Review of Systems Review of Systems: ROS: 10pt was reviewed & negative except for what was stated in HPI & below Physical Exam Physical Exam: Temp Pulse Resp BP Pulse Ox 36.7 C 91 17 115/80 97 03/07/18 18:38 03/07/18 18:38 03/07/18 18:38 03/07/18 18:38 03/07/18 18:38 O2 (L/minute) 4 Constitutional: chronically ill appearing, unkempt Eyes: PERRL Ears, Nose, Mouth, Throat: dry mucous membranes Cardiovascular: regular rate and rhythym Respiratory: no respiratory distress Genitourinary: no bladder tenderness Skin: warm, erythema (R leg from foot up ot thigh ) Musculoskeletal: no joint effusions Neurologic: AAOx3 Psychiatric: interacting appropriately Lab Data & Imaging Review 03/07/18 17:50 03/07/18 17:50 WBC 18.24 10^3/uL (3.80-9.50) H 03/07/18 17:50 RBC 4.59 10^6/uL (4.40-6.38) 03/07/18 17:50 Hgb 13.8 g/dL (13.7-17.5) 03/07/18 17:50 POC Hgb 15.6 gm/dL (13.7-17.5) 03/07/18 17:56 Hct 43.1 % (40.0-51.0) 03/07/18 17:50 POC Hct 46 % (40-51) 03/07/18 17:56 MCV 93.9 fL (81.5-99.8) 03/07/18 17:50 MCH 30.1 pg (27.9-34.1) 03/07/18 17:50 MCHC 32.0 g/dL (32.4-36.7) L 03/07/18 17:50 RDW 18.3 % (11.5-15.2) H 03/07/18 17:50 Plt Count 240 10^3/uL (150-400) 03/07/18 17:50 MPV 9.3 fL (8.7-11.7) 03/07/18 17:50 Neut % (Auto) 83.7 % (39.3-74.2) H 03/07/18 17:50 Lymph % (Auto) 6.6 % (15.0-45.0) L 03/07/18 17:50 [place] % (Auto) 7.8 % (4.5-13.0) 03/07/18 17:50 Eos % (Auto) 0.1 % (0.6-7.6) L 03/07/18 17:50 Baso % (Auto) 0.3 % (0.3-1.7) 03/07/18 17:50 Nucleat RBC Rel Count 0.0 % (0.0-0.2) 03/07/18 17:50 Absolute Neuts (auto) 15.25 10^3/uL (1.70-6.50) H 03/07/18 17:50 Absolute Lymphs (auto) 1.21 10^3/uL (1.00-3.00) 03/07/18 17:50 Absolute Monos (auto) 1.43 10^3/uL (0.30-0.80) H 03/07/18 17:50 Absolute Eos (auto) 0.01 10^3/uL (0.03-0.40) L 03/07/18 17:50 Absolute Basos (auto) 0.06 10^3/uL (0.02-0.10) 03/07/18 17:50 Absolute Nucleated RBC 0.00 10^3/uL (0-0.01) 03/07/18 17:50 Immature Gran % 1.5 % (0.0-1.1) H 03/07/18 17:50 Immature Gran # 0.28 10^3/uL (0.00-0.10) H 03/07/18 17:50 VBG Lactic Acid 2.5 mmol/L (0.7-2.1) H 03/07/18 18:50 POC Sodium 138 mEq/L (135-145) 03/07/18 17:56 Sodium 136 mEq/L (135-145) 03/07/18 17:50 POC Potassium 4.0 mEq/L (3.3-5.0) 03/07/18 17:56 Potassium 4.3 mEq/L (3.3-5.0) 03/07/18 17:50 POC Chloride 101 mEq/L (97-110) 03/07/18 17:56 Chloride 98 mEq/L (97-110) 03/07/18 17:50 Carbon Dioxide 27 mEq/l (22-31) 03/07/18 17:50 Anion Gap 11 mEq/L (6-14) 03/07/18 17:50 POC BUN 16 mg/dL (7-23) 03/07/18 17:56 BUN 17 mg/dL (7-23) 03/07/18 17:50 Creatinine 1.0 mg/dL (0.7-1.3) 03/07/18 17:50 POC Creatinine 1.0 mg/dL (0.7-1.3) 03/07/18 17:56 Estimated GFR > 60 03/07/18 17:50 Glucose 119 mg/dL (70-100) H 03/07/18 17:50 POC Glucose 122 mg/dL (70-100) H 03/07/18 17:56 Calcium 10.5 mg/dL (8.5-10.4) H 03/07/18 17:50 Creatine Kinase 101 IU/L (0-224) 03/07/18 17:50 POC Troponin I 0.02 ng/mL (0.00-0.08) 03/07/18 17:54 Urine Color YELLOW 03/07/18 18:27 Urine Appearance CLEAR 03/07/18 18:27 Urine pH 6.0 (5.0-7.5) 03/07/18 18:27 Ur Specific Faber 1.020 (1.002-1.030) 03/07/18 18:27 Urine Protein 1+ (NEGATIVE) H 03/07/18 18:27 Urine Ketones TRACE (NEGATIVE) H 03/07/18 18:27 Urine Blood NEGATIVE (NEGATIVE) 03/07/18 18:27 Urine Nitrate NEGATIVE (NEGATIVE) 03/07/18 18: Urine Bilirubin NEGATIVE (NEGATIVE) 03/07/18 18:27 Urine Urobilinogen 2.0 EU (0.2-1.0) H 03/07/18 18:27 Ur Leukocyte Esterase NEGATIVE (NEGATIVE) 03/07/18 18: Urine RBC 3-5 /hpf (0-3) H 03/07/18 18:27 Urine WBC 1-3 /hpf (0-3) 03/07/18 18:27 Ur Epithelial Cells TRACE /lpf (NONE-1+) 03/07/18 18: Urine Mucus TRACE /lpf (NONE-1+) 03/07/18 18:27 Urine Glucose NEGATIVE (NEGATIVE) 03/07/18 18:27 Assessment & Plan Assessment: RLE Cellulitis - RLE erythematous, warm, from foot up to thigh - No discernable fluid collections - Vitals WNL on admission - WBC 18.2, LA 3.5 on admission, will continue to trend - S/p Ancef in ED, will continue for now - Hx of DVT/PE, will order LE U/S to r/o DVT - Continue home Spironolactone, Torsemide for chronic lymphedema Failure to Thrive - S/p mechanical fall on Tuesday - PT/OT ordered, should also have Life Alert upon discharge - S/p IVF in ED, continue PRN - CK WNL on admission, no evidence of rhabdomyolysis despite long down time Lactic Acidosis - LA 3.5 on admission - In setting of impressive RLE cellulitis - Does not meet SIRS criteria other than elevated WBC - Will continue to trend, s/p IVF in ED, additional IVF PRN Hx of DVT/PE - Continue home Apixaban - LE U/S as above to r/o DVT Chronic Medical Conditions: - BPH, Depression, COPD- Continue home medications once reconciled FEN: S/p IVF, Regular diet Code: FULL Ppx: Home Apixaban
[2018-03-07] MEDS: NS 1,000 ML IV SCH (21:03)
[2018-03-08] MEDS: ceFAZolin 2 GM/DEXTROSE 100 ML IV SCH ×2 (02:19→09:54)
[2018-03-08] MEDS ORDERED: NS 500 ML IV ONE (03:49)
[2018-03-08] MEDS: ACETAMINOPHEN 325 MG TAB PO PRN ×2 (04:38→21:23)
[2018-03-08 05:07] LABS: PLATELET COUNT 187 10^3/uL (150-400)
[2018-03-08] MEDS: NS 1,000 ML IV SCH (05:36)
--- NOTE | 2018-03-08 06:32 | PDMN ---
Medical Necessity Medical necessity: [facility] systemic condition: R62.7 adult FTT, 82 yr old male with fall, unable to get up pt wit RLE cellulitis, LA 3.5, now with tachycardia. O2 4L 94% PMHx COPD, DVT, PE, pulm HTN, SHANNAN, anticipate > 2 MN ongoing med nec care , further eval and tx., US pend r/o DVT
--- NOTE | 2018-03-08 09:10 | ASMTCMCOM ---
CM Note CM Note Notes: Pt is a 82 y/o man admitted for a right leg infection. Needs are TBD at this time. OT has been ordered and awaiting recommendations. CM to follow. Plan: TBD Date Signed: 03/08/2018 09:09 AM Electronically Signed By:GIBRAN Stevens
--- NOTE | 2018-03-08 15:21 | HOSPPROG ---
Hospitalist Progress Note Assessment/Plan: 82 yo M w PVD, vte here w sepsis, cellulitis of leg leg: concerning although has chronic dvt on that side. d/w yehuda- he saw picture, unclear if worse that said, septic on presentation 1. change to vanc- h/o MRSA 2. MRI W/WO OF LEG 3. ID to see 4. surgery eval if abscess VTE: no new clot continue eliquis sepsis: source, lactate, vitals septic physiology improving hold antihypertensives PVD; reasonable to check HALIMA of leg on this admit although deal w infection first proph: anticoagulated Subjective: case d/w dr zheng Objective: Vital Signs Temp Pulse Resp BP Pulse Ox 37.3 C 97 18 124/63 H 97 03/08/18 11:32 03/08/18 11:32 03/08/18 11:32 03/08/18 11:32 03/08/18 11:32 Laboratory Results 03/08/18 04:36 03/07/18 03/08/18 03/09/18 05:59 05:59 05:59 Intake Total 00405 300 Output Total 150 Balance 07039 300 - Physical Exam Constitutional: no apparent distress, appears nourished Eyes: PERRL, anicteric sclera Ears, Nose, Mouth, Throat: moist mucous membranes, hearing normal Cardiovascular: regular rate and rhythym, no murmur, rub, or gallop Respiratory: no respiratory distress, no rales or rhonchi Gastrointestinal: normoactive bowel sounds, soft, non-tender abdomen Genitourinary: no bladder fullness, No schrader in urethra Skin: warm, normal color Musculoskeletal: other (R leg erythematous, edematous w skin breakdown. tense) Neurologic: AAOx3 Psychiatric: interacting appropriately Lymph, Heme, Immunologic: no cervical LAD ICD10 Worksheet Patient Problems: Problems Problem Status Onset Chronic Disease Mgmt/TransitionalCare Acute DVT (deep venous thrombosis) Acute Dyspnea Acute Hypoxia Acute MRSA (methicillin resistant Staphylococcus aureus) Acute 05/10/16 MRSA cellulitis Acute Pneumonia Acute Pulmonary emboli Acute Upper GI bleed Acute
[2018-03-08] MEDS: APIXABAN 5 MG TAB PO SCH ×2 (15:49→21:21)
[2018-03-08] MEDS: VANCOMYCIN HCL/NORMAL SALINE 250 ML IV SCH (15:53)
[2018-03-08] MEDS ORDERED: GADOBUTROL 10 ML VIAL IVP ONE (20:12)
--- NOTE | 2018-03-08 21:04 | GCON ---
INFECTIOUS DISEASE CONSULTATION. DATE OF CONSULTATION: 03/08/2018 REFERRING PHYSICIAN: Jose M Kang MD REASON FOR CONSULTATION: Right-lower extremity cellulitis versus abscess versus necrotizing fasciitis. 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 The patient was in his usual state of health, [facility], with a right calf measurement of 39 cm and ankle 25 with a left calf 37 cm and ankle 25, who is brought to the emergency room the after being found down in his closet; his neighbor found him on the day of admission. His right lower extremity was injured and noticed that it was getting more red and swollen over the last couple of days. Remarkably, minimal pain associated with that leg; the patient has a chronic neuropathy. In the emergency room, patient was found to be tachycardic, mildly hypotensive. Blood cultures were obtained. The patient was found to have a leukocytosis of 18.2 and a normal CK. He was admitted to the hospital and started on cefazolin and was changed to vancomycin this afternoon when ID was consulted. MRI was ordered for further evaluation of his right lower extremity. PAST MEDICAL HISTORY: Alcoholism, arthritis, recurrent cellulitis, CHF, diastolic, COPD, DVT left-lower extremity, on chronic Eliquis. Bilateral lower extremity lymphedema, right greater than left. Pulmonary hypertension. History of MRSA, last isolated in April of 2016, multiple toe infections, obesity, osteoarthritis, peripheral neuropathy, urinary incontinence, BPH, obstructive sleep apnea. 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 FAMILY HISTORY: Reviewed and noncontributory. ALLERGIES: NKDA. Other allergies per med list in the computer. MEDICATIONS: He is typically on Eliquis 5 mg daily. He received cefazolin overnight, now is on vancomycin 1 g IV q.12. SOCIAL HISTORY: . Some alcohol. Former tobacco. Worked at [employer] and quit in 2014. REVIEW OF SYSTEMS: A complete 10-point review of systems was performed and is negative except as mentioned in the HPI. PHYSICAL EXAM: VITAL SIGNS: T-max 37.7, T-current 37.3, heart rate 106, now 97 , blood pressure 124/63, saturation 97% on 4 L, respiratory rate 16. GENERAL: This is a pleasant, mildly distressed male lying in bed complaining of confusion. HEENT: No conjunctival injection. Oropharynx fair dentition. Dry mucous membranes. CARDIOVASCULAR: Borderline tachycardia. No murmur. CHEST: Decreased breath sounds throughout. BACK EXAM: No ecchymosis was noted ( pertinent due to lying on the ground for 4 days). ABDOMEN: Obese, soft, nontender. Bowel sounds are present. EXTREMITIES: Patient has a markedly swollen right-lower extremity with amputation of all toes on the right foot except for the 5th. He has erythema in a stocking distribution with seemingly underlying ecchymosis. No crepitus was determined. Remarkably minimal pain associated with palpation. Range of motion of knee was intact. Pulses were thready and minimally palpable, but his foot was warm. Left lower extremity was without abnormality. NEUROLOGICAL: Patient was oriented but not near as articulate as his baseline. LABORATORY DATA: White count on admission 18.24, today 13.7. Hematocrit 37, platelets of 187, creatinine 1.0. Blood cultures 03/07/2018, are pending. RIGHT LOWER EXTREMITY ULTRASOUND: Chronic DVT in 1 of the paired femoral veins. No acute DVT, MRI pending ASSESSMENT AND PLAN: 82-year-old male with chronic lower extremity lymphedema, who fell at home and now presents with a markedly swollen right-lower extremity with elevated white count, low-grade fever, and erythema circumferentially of his distal right-lower extremity without lymphangitis. 1. Agree with IV vancomycin, 1 g IV q.12. Careful dosing due to patient's age and recent injury with concern for potential delayed acute renal failure. 2. Agree with contrasted MRI of the right lower extremity to understand the underlying anatomy. 3. Will follow blood cultures. 4. Repeat labs including CK (due to prolonged on the ground) in the a.m. to closely monitor creatinine. 5. Known MRSA isolate greater than 1 year ago. Therefore, patient does NOT have to be in isolation. Thank you for this consultation. Care was coordinated with Dr. Kang. Time was 75 minutes, greater than 50% of the time spent with the patient in education, counseling and coordination of care. /[id number]/MODL MTDD
[2018-03-08] MEDS: traZODone 100 MG TAB PO SCH (21:22)
[2018-03-08] MEDS: GABAPENTIN 100 MG CAP PO SCH (21:22)
[2018-03-09] MEDS: VANCOMYCIN HCL/NORMAL SALINE 250 ML IV SCH ×2 (03:32→15:48)
--- NOTE | 2018-03-09 08:58 | PCMIDPN ---
Assessment/Plan: # Sirs: Improved # Right lower extremity cellulitis: DVT study shows chronic clot. Erythema much more localized today in a band like distribution mid zurita. MRI reviewed personally by me with Radiology that shows soft tissue edema that could be attributable to venous insufficiency or cellulitis. No air, or concern for radiologic features of fasciitis. --continue vancomycin --check labs including CK and creatinine --right lower extremity elevation --PT OT evaluation today as patient was found down times many days at home. Reminded patient that he has to be well before he can help his son. --continue to monitor blood cultures --gentle vancomycin dosing with age, check trough tomorrow # Venous insufficiency: Hold off on compression for now due to acute infection. 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 Patient complaining of productive cough Objective: Vital Signs Temp Pulse Resp BP Pulse Ox 37.3 C 82 16 98/65 L 95 03/09/18 07:38 03/09/18 07:38 03/09/18 07:38 03/09/18 07:38 03/09/18 07:38 Laboratory Results 03/08/18 04:36 03/08/18 03/09/18 03/10/18 05:59 05:59 05:59 Intake Total 29981 300 Output Total 150 700 Balance 31570 300 -700 - Physical Exam General Appearance: alert, no apparent distress, obese EENT: pale conjunctiva, dry mucous membranes, No scleral icterus, No thrush Respiratory: other (Barrel chested; the decreased breath sounds throughout), No accessory muscle use Extremities: swelling (Right lower extremity; no crepitus), erythema (Bandlike mid zurita; almost circumferential; associated warmth), other (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 ICD10 Worksheet Patient Problems: Problems Problem Status Onset Chronic Disease Mgmt/TransitionalCare Acute DVT (deep venous thrombosis) Acute Dyspnea Acute Hypoxia Acute MRSA (methicillin resistant Staphylococcus aureus) Acute 05/10/16 MRSA cellulitis Acute Pneumonia Acute Pulmonary emboli Acute Upper GI bleed Acute
--- NOTE | 2018-03-09 09:13 | ASMTCMCOM ---
CM Note CM Note Notes: Therapies are recommending SNF. CM met w/ pt for dispo planning. Pt is not interested in going to SNF. Pt is not interested in being home bound to qualify him for HC services. Pt reports that he lives [place] the [place] from an outpatient PT office. Pt plans on participating in outpatient PT. No other needs at this time. CM available for changes. Plan: Independent Date Signed: 03/09/2018 09:12 AM Electronically Signed By:GIBRAN Stevens
[2018-03-09] MEDS: DULoxetine 60 MG CAP PO SCH (09:44)
[2018-03-09] MEDS: TAMSULOSIN HCL 0.4 MG CAP PO SCH (09:44)
[2018-03-09] MEDS: APIXABAN 5 MG TAB PO SCH ×2 (09:44→21:17)
[2018-03-09 10:40] LABS: CREATINE KINASE 78 IU/L (0-224)
[2018-03-09 10:42] LABS: PLATELET COUNT 237 10^3/uL (150-400)
--- NOTE | 2018-03-09 13:06 | HOSPPROG ---
Hospitalist Progress Note Assessment/Plan: 82 yo M w PVD, vte here w sepsis, cellulitis of leg # Right lower extremity cellulitis - DVT study shows chronic clot - MRI of RLE performed which shows soft tissue edema. No air, or concern for radiologic features of fasciitis. - ID consulted who recommend continuing vancomycin, hx of MRSA - Blood cultures x2 collected, f/u results # Sepsis - Source cellulitis with management as above - LA improved from 2.5 to 1.7 - Holding antihypertensives # Chronic DVT - Seen on ultrasound on admission - Continue home Elaquis #PVD - reasonable to check HALIMA of leg on this admit although deal w infection first FEN: S/p IVF, Regular diet Code: FULL Ppx: Home Apixaban Dispo: Pending clinical course Subjective: Pateint reports coughing while eating this morning Objective: Vital Signs Temp Pulse Resp BP Pulse Ox 36.6 C 85 16 95/44 L 91 L 03/09/18 11:25 03/09/18 11:25 03/09/18 11:25 03/09/18 11:25 03/09/18 11:25 Laboratory Results 03/09/18 10:00 03/09/18 10:00 03/08/18 03/09/18 03/10/18 05:59 05:59 05:59 Intake Total 71212 300 Output Total 150 700 Balance 17886 300 -700 - Physical Exam Constitutional: no apparent distress Eyes: PERRL Ears, Nose, Mouth, Throat: moist mucous membranes Cardiovascular: regular rate and rhythym Respiratory: no respiratory distress Gastrointestinal: soft, non-tender abdomen Genitourinary: no bladder tenderness Skin: warm, erythema (RLE with erythma outlined ) Musculoskeletal: pain with ROM Neurologic: AAOx3 Psychiatric: interacting appropriately ICD10 Worksheet Patient Problems: Problems Problem Status Onset Chronic Disease Mgmt/TransitionalCare Acute DVT (deep venous thrombosis) Acute Dyspnea Acute Hypoxia Acute MRSA (methicillin resistant Staphylococcus aureus) Acute 05/10/16 MRSA cellulitis Acute Pneumonia Acute Pulmonary emboli Acute Upper GI bleed Acute
--- NOTE | 2018-03-09 15:11 | ASMTCMCOM ---
CM Note CM Note Notes: YAW Brooks worked w/ pt today. Cecilia continues to recommend SNF. CM met w/ pt w/ HUBERT Skelton. Pt is agreeable to going to [facility] rehab. Pt reports that his son is at [place] for opioid and etoh rehab. Referral sent. CM to follow. Plan: [facility] Date Signed: 03/09/2018 03:10 PM Electronically Signed By:GIBRAN Stevens
[2018-03-09] MEDS: GABAPENTIN 100 MG CAP PO SCH (21:16)
[2018-03-09] MEDS: ACETAMINOPHEN 325 MG TAB PO PRN (21:17)
[2018-03-09] MEDS: traZODone 100 MG TAB PO SCH (21:17)
[2018-03-10] MEDS: VANCOMYCIN HCL/NORMAL SALINE 250 ML IV SCH ×2 (03:58→15:30)
[2018-03-10] MEDS: ACETAMINOPHEN 325 MG TAB PO PRN ×2 (07:56→21:01)
[2018-03-10] MEDS: DULoxetine 60 MG CAP PO SCH (07:56)
[2018-03-10] MEDS: TAMSULOSIN HCL 0.4 MG CAP PO SCH (07:57)
[2018-03-10] MEDS: APIXABAN 5 MG TAB PO SCH ×2 (07:57→20:55)
--- NOTE | 2018-03-10 10:30 | PCMIDPN ---
Assessment/Plan: Assessment: Right lower extremity cellulitis. Clearly clinically improving on vancomycin. Will check a vancomycin trough before his afternoon dose today and adjust. Patient feels much better. Lab work looks good. Plan to continue antibiotic coverage and continue physical therapy in order to get him well enough for discharge. Plan: 1. Continue IV vancomycin at present dose. 2. Recheck vancomycin trough today. 3. Encourage ambulation as well as PT and OT. 03/10/18 10:28 Subjective: Patient is resting in his chair in his hospital room. He feels significantly improved from a few days ago. Notes that his right lower extremity is decreased in size and the redness is abating. He denies any fevers or chills. Objective: Vancomycin # 2 Vital Signs Temp Pulse Resp BP Pulse Ox 36.4 C 76 22 H 111/67 97 03/10/18 07:21 03/10/18 07:21 03/10/18 07:21 03/10/18 07:21 03/10/18 07:21 Laboratory Results 03/10/18 04:38 03/09/18 10:00 03/09/18 03/10/18 03/11/18 05:59 05:59 05:59 Intake Total 300 Output Total 2024 Balance 300 -2024 - Physical Exam General Appearance: WD/WN, alert, no apparent distress, non-toxic Respiratory: lungs clear, normal breath sounds, No respiratory distress Cardiac/Chest: regular rate, rhythm, No tachycardia Extremities: non-tender, pedal edema (Right lower extremity), inflammation ( Mild right lower extremity), erythema (Mild right lower extremity), No normal inspection, No calf tenderness Skin: normal color, warm/dry, No rash Neuro/Psych: alert, normal mood/affect, oriented x 3 ICD10 Worksheet Patient Problems: Problems Problem Status Onset Chronic Disease Mgmt/TransitionalCare Acute DVT (deep venous thrombosis) Acute Dyspnea Acute Hypoxia Acute MRSA (methicillin resistant Staphylococcus aureus) Acute 05/10/16 MRSA cellulitis Acute Pneumonia Acute Pulmonary emboli Acute Upper GI bleed Acute
--- NOTE | 2018-03-10 11:48 | HOSPPROG ---
Hospitalist Progress Note Assessment/Plan: 82 yo M w PVD, vte here w sepsis, cellulitis of leg # Right lower extremity cellulitis - Increased redness, swelling, wartm on admission - MRI of RLE performed which shows soft tissue edema. No air, or concern for radiologic features of fasciitis. - ID consulted who recommend continuing vancomycin, hx of MRSA - Blood cultures x2 collected, f/u results # Sepsis - Source cellulitis with management as above - LA improved from 2.5 to 1.7 - Holding antihypertensives # Chronic DVT - Seen on ultrasound on admission - Continue home Elaquis #PVD - reasonable to check HALIMA of leg on this admit although deal w infection first FEN: S/p IVF, Regular diet Code: FULL Ppx: Home Apixaban Dispo: Pending clinical course Subjective: Pateint reports some nasal and throat congestion this morning Objective: Vital Signs Temp Pulse Resp BP Pulse Ox 36.4 C 76 22 H 111/67 97 03/10/18 07:21 03/10/18 07:21 03/10/18 07:21 03/10/18 07:21 03/10/18 07:21 Laboratory Results 03/10/18 04:38 03/09/18 10:00 03/09/18 03/10/18 03/11/18 05:59 05:59 05:59 Intake Total 300 Output Total 2024 Balance 300 -2024 - Physical Exam Constitutional: no apparent distress Eyes: PERRL Ears, Nose, Mouth, Throat: moist mucous membranes Cardiovascular: regular rate and rhythym Respiratory: no respiratory distress Gastrointestinal: soft, non-tender abdomen Genitourinary: schrader in urethra Skin: warm, erythema Neurologic: AAOx3 Psychiatric: interacting appropriately ICD10 Worksheet Patient Problems: Problems Problem Status Onset Chronic Disease Mgmt/TransitionalCare Acute DVT (deep venous thrombosis) Acute Dyspnea Acute Hypoxia Acute MRSA (methicillin resistant Staphylococcus aureus) Acute 05/10/16 MRSA cellulitis Acute Pneumonia Acute Pulmonary emboli Acute Upper GI bleed Acute
--- NOTE | 2018-03-10 12:13 | ASMTCMCOM ---
CM Note CM Note Notes: CM spoke to Dr. Villagran and Nafisa RN. Pt will need a couple more days of ivabx. Pt has been accepted to [facility]. CM to follow. Plan: [facility] Date Signed: 03/10/2018 11:56 AM Electronically Signed By:GIBRAN Stevens
[2018-03-10] MEDS: GABAPENTIN 100 MG CAP PO SCH (20:55)
[2018-03-10] MEDS: guaiFENesin 600 MG TAB.ER PO SCH (20:55)
[2018-03-10] MEDS: traZODone 100 MG TAB PO SCH (20:55)
[2018-03-11] MEDS: VANCOMYCIN HCL/NORMAL SALINE 250 ML IV SCH ×2 (03:47→16:03)
[2018-03-11] MEDS: guaiFENesin 600 MG TAB.ER PO SCH ×2 (09:36→20:31)
[2018-03-11] MEDS: DULoxetine 60 MG CAP PO SCH (09:36)
[2018-03-11] MEDS: APIXABAN 5 MG TAB PO SCH ×2 (09:36→20:31)
[2018-03-11] MEDS: TAMSULOSIN HCL 0.4 MG CAP PO SCH (09:36)
[2018-03-11] MEDS: ACETAMINOPHEN 325 MG TAB PO PRN ×2 (10:04→18:01)
[2018-03-11] MEDS: ALBUTEROL 60 PUFFS/8 GM MDI IH PRN (10:05)
--- NOTE | 2018-03-11 10:25 | HOSPPROG ---
Hospitalist Progress Note Assessment/Plan: 82 yo M w PVD, vte here w sepsis, cellulitis of leg # Right lower extremity cellulitis - Increased redness, swelling, wartm on admission - MRI of RLE performed which shows soft tissue edema. No air, or concern for radiologic features of fasciitis. - ID consulted who recommend continuing vancomycin, hx of MRSA - Blood cultures x2 collected, f/u results # Sepsis - Source cellulitis with management as above - LA improved from 2.5 to 1.7 - Holding antihypertensives # Chronic DVT - Seen on ultrasound on admission - Continue home [place]quis #PVD - reasonable to check HALIMA of leg on this admit although deal w infection first FEN: S/p IVF, Regular diet Code: FULL Ppx: Home Apixaban Dispo: Pending clinical course Subjective: Patient reports some drowsiness this morning after taking trazodone last night Objective: Vital Signs Temp Pulse Resp BP Pulse Ox 36.4 C 68 12 98/53 L 92 03/11/18 08:00 03/11/18 08:00 03/11/18 08:00 03/11/18 08:00 03/11/18 08:00 Laboratory Results 03/11/18 04:15 03/11/18 04:15 03/10/18 03/11/18 03/12/18 05:59 05:59 05:59 Output Total 2024 Balance -2024 - Physical Exam Constitutional: no apparent distress, chronically ill appearing Eyes: PERRL Ears, Nose, Mouth, Throat: moist mucous membranes Cardiovascular: regular rate and rhythym Respiratory: no respiratory distress Gastrointestinal: soft, non-tender abdomen Skin: warm, erythema Neurologic: AAOx3 Psychiatric: interacting appropriately ICD10 Worksheet Patient Problems: Problems Problem Status Onset Chronic Disease Mgmt/TransitionalCare Acute DVT (deep venous thrombosis) Acute Dyspnea Acute Hypoxia Acute MRSA (methicillin resistant Staphylococcus aureus) Acute 05/10/16 MRSA cellulitis Acute Pneumonia Acute Pulmonary emboli Acute Upper GI bleed Acute
--- NOTE | 2018-03-11 12:21 | PCMIDPN ---
Assessment/Plan: 1. Right lower extremity/foot cellulitis in patient with history multiple foot surgeries: Right 1st met head is concerning on exam today for underlying abscess or osteomyelitis. He has drainage from the plantar aspect of the 1st metatarsal head, and tenderness in this area. Will obtain MRI of the right foot. Previous MRI of the right lower extremity shoulder only cellulitis and myositis , but foot was not obtained. G stain and culture of the drainage from the plantar aspect of his foot was obtained today. Will also order inflammatory markers. The area was not malodorous; will continue vancomycin alone for now pending culture/imaging results. The cellulitis of the pretibial area is improved. Over 25 min spent with this patient today. Subjective: Patient without complaints other than occasional cough. No diarrhea. Objective: Vancomycin 1 g IV q.12 hours day 3 No fevers Vital Signs Temp Pulse Resp BP Pulse Ox 36.4 C 98 15 98/53 L 92 03/11/18 08:00 03/11/18 10:31 03/11/18 10:31 03/11/18 08:00 03/11/18 10:31 Laboratory Results 03/11/18 04:15 03/11/18 04:15 03/10/18 03/11/18 03/12/18 05:59 05:59 05:59 Output Total 2024 Balance -2024 - No new microbiologic data No inflammatory markers since June 2017 - Physical Exam General Appearance: no apparent distress, obese Respiratory: lungs clear Extremities: other (Right lower extremity: Erythema along pretibial aspect of his right lower extremity has improved and is receding inside of margins. No significant tenderness or leg swelling. The lateral aspect of the right 1st metatarsal has a quarter-size fluctuant area, with purple fluid as well as a purulent component. The remaining 1st metatarsal is painful with manipulation. The 1st met head plantar aspect is notable for some mild sero purulent drainage from a small opening at this site. The foot itself is erythematous.) ICD10 Worksheet Patient Problems: Problems Problem Status Onset Chronic Disease Mgmt/TransitionalCare Acute DVT (deep venous thrombosis) Acute Dyspnea Acute Hypoxia Acute MRSA (methicillin resistant Staphylococcus aureus) Acute 05/10/16 MRSA cellulitis Acute Pneumonia Acute Pulmonary emboli Acute Upper GI bleed Acute
[2018-03-11] MEDS ORDERED: GADOBUTROL 10 ML VIAL IVP ONE (15:24)
[2018-03-11] MEDS: traZODone 100 MG TAB PO SCH (20:31)
[2018-03-11] MEDS: GABAPENTIN 100 MG CAP PO SCH (20:31)
[2018-03-12] MEDS: VANCOMYCIN HCL/NORMAL SALINE 250 ML IV SCH ×2 (03:35→16:04)
[2018-03-12] MEDS: ACETAMINOPHEN 325 MG TAB PO PRN ×2 (06:30→23:01)
[2018-03-12] MEDS: DULoxetine 60 MG CAP PO SCH (10:35)
[2018-03-12] MEDS: APIXABAN 5 MG TAB PO SCH ×2 (10:35→20:57)
[2018-03-12] MEDS: guaiFENesin 600 MG TAB.ER PO SCH ×2 (10:35→20:57)
[2018-03-12] MEDS: TAMSULOSIN HCL 0.4 MG CAP PO SCH (10:35)
--- NOTE | 2018-03-12 10:48 | HOSPPROG ---
Hospitalist Progress Note Assessment/Plan: 82 yo M w PVD, vte here w sepsis, cellulitis of leg # Right lower extremity Infection - Increased redness, swelling, warmth on admission - MRI of RLE performed which shows soft tissue edema. No air, or concern for radiologic features of fasciitis. - ID consulted who recommend continuing vancomycin, hx of MRSA - ID ordered repeat MRI of R foot given worsening, whic showed abscess in subQ fat medial to 1st metatarsal head, abscess also in plantar aspect of 1st MTP joint, question mild early osteo of medial sesamoid, fluid collection around 4th metatarsal head, question mild bone marrow edema of 1st metatarsal head which could represent osteitis or early osteo, cellulitis of R foot and peritendinitis extensor and flexor tendons - Discussed MRI findings with ID, Dr. Prabhakar, this morning, who recommended continuing Vancomycin, will consult Podiatry/Surgery to evaluate - Blood cultures x2 collected, f/u results # Sepsis - Source RLE infection with management as above - LA improved from 2.5 to 1.7 - Holding antihypertensives # Chronic DVT - Seen on ultrasound on admission - Continue home Elaquis #PVD - reasonable to check HALIMA of leg on this admit although deal w infection first FEN: S/p IVF, Regular diet Code: FULL Ppx: Home Apixaban Dispo: Pending clinical course Subjective: Patient reports pain in RLE this morning Objective: Vital Signs Temp Pulse Resp BP Pulse Ox 36.4 C 71 18 102/58 L 94 03/12/18 07:59 03/12/18 07:59 03/12/18 07:59 03/12/18 07:59 03/12/18 07:59 Microbiology 03/11/18 12:18 Gram Stain - Final Foot - Swab Laboratory Results 03/11/18 04:15 03/11/18 04:15 03/11/18 03/12/18 03/13/18 05:59 05:59 05:59 Output Total 500 Balance -500 - Physical Exam Constitutional: no apparent distress, chronically ill appearing Eyes: PERRL Ears, Nose, Mouth, Throat: moist mucous membranes Cardiovascular: regular rate and rhythym Respiratory: no respiratory distress Gastrointestinal: soft, non-tender abdomen Skin: warm, erythema, fluctuance Musculoskeletal: pain with ROM Neurologic: AAOx3 ICD10 Worksheet Patient Problems: Problems Problem Status Onset Chronic Disease Mgmt/TransitionalCare Acute DVT (deep venous thrombosis) Acute Dyspnea Acute Hypoxia Acute MRSA (methicillin resistant Staphylococcus aureus) Acute 05/10/16 MRSA cellulitis Acute Pneumonia Acute Pulmonary emboli Acute Upper GI bleed Acute
[2018-03-12] MEDS: ALBUTEROL 60 PUFFS/8 GM MDI IH PRN (10:56)
--- NOTE | 2018-03-12 11:43 | PCMIDPN ---
Assessment/Plan: 1. Right lower extremity/foot cellulitis in patient with history multiple foot surgeries: Discussed case with patient and hospitalist. 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 We will get in touch with him tomorrow. I do think he would benefit from some debridement of the superficial abscess/ devitalized tissue along the 1st metatarsal, but this may be able to be done at the bedside. The small abscess on the plantar aspect of his foot appears to have spontaneously drained and is no longer draining. Given possible early osteomyelitis of the 1st metatarsal head, will likely need prolonged antibiotics. The cellulitis of the pretibial aspect of his right lower extremity appears improved. 03/12/18 11:40 Subjective: MRI reviewed last evening with Dr. Morse. Patient has a superficial abscess along the lateral aspect of his 1st metatarsal, and plantar aspect. He also has some early bony changes of the 1st metatarsal head possibly consistent with osteomyelitis. The sesamoid bone in this area also looks abnormal. Patient states that the plantar aspect of his foot is no longer draining. He is concerned about the small abscess on the lateral aspect of his toe. We talked about this. No diarrhea. Objective: Vital Signs Vancomycin 1 g IV q.12 hours day for No fevers Temp Pulse Resp BP Pulse Ox 36.3 C 87 18 122/70 H 91 L 03/12/18 11:16 03/12/18 11:16 03/12/18 11:16 03/12/18 11:16 03/12/18 11:16 Microbiology 03/11/18 12:18 Gram Stain - Final Foot - Swab Laboratory Results 03/11/18 04:15 03/11/18 04:15 03/11/18 03/12/18 03/13/18 05:59 05:59 05:59 Output Total 500 Balance -500 ESR 97 MM/HR (0-20) H 03/11/18 04:15 C-Reactive Protein 64.0 mg/L (<10.0) H 03/11/18 04:15 Purulence from plantar aspect of his foot shows 1+ polys, no organisms, and mixed princess - Physical Exam General Appearance: no apparent distress, obese Extremities: other (Right lower extremity: Pretibial area with improved erythema even compared with yesterday. The foot itself appears unchanged as per yesterday, but the small opening on the plantar aspect of his foot along the 1st metatarsal head is no longer actively draining. The area is heavily callused.) ICD10 Worksheet Patient Problems: Problems Problem Status Onset Chronic Disease Mgmt/TransitionalCare Acute DVT (deep venous thrombosis) Acute Dyspnea Acute Hypoxia Acute MRSA (methicillin resistant Staphylococcus aureus) Acute 05/10/16 MRSA cellulitis Acute Pneumonia Acute Pulmonary emboli Acute Upper GI bleed Acute
[2018-03-12] MEDS ORDERED: MAGNESIUM HYDROXIDE 30 ML UDCUP PO PRN (12:46)
[2018-03-12] MEDS ORDERED: CALCIUM CARBONATE 500 MG CHEWABLE TAB PO PRN (12:46)
[2018-03-12] MEDS ORDERED: POLYETHYLENE GLYCOL 3350 17 GM PKT PO PRN (12:46)
[2018-03-12] MEDS ORDERED: LACTULOSE 20 GM/30 ML UDCUP PO PRN (12:46)
[2018-03-12] MEDS ORDERED: BISACODYL 10 MG SUPP PR PRN (12:46)
[2018-03-12] MEDS: GABAPENTIN 100 MG CAP PO SCH (20:57)
[2018-03-12] MEDS: traZODone 100 MG TAB PO SCH (20:57)
[2018-03-12] MEDS: SENNOSIDES/DOCUSATE SODIUM TAB PO SCH (20:57)
[2018-03-13] MEDS: VANCOMYCIN HCL/NORMAL SALINE 250 ML IV SCH ×2 (03:24→16:23)
--- NOTE | 2018-03-13 08:33 | WOCRNPDOC ---
JASONCRElda Advanced Assessment Note - Skin Integrity Problem, Advanced Assess Right Foot Unknown Dressing Type: Open to Air Vicki Wound Tissue: Erythema, Hot, Scaly, Lipodermatosclerosis, Venous Dermatitis , Taught, Xerotic, Altered Sensitivity, Scarred Extremity Temperature: Warm Skin Integrity Problem Comment: Right medial first metatarsal head has evidence of evolving sanguinous blister approx 1x1 cm in size. This is adjacent to a larged calloused area on patient's plantar 1st/2nd metatarsal heads where there is also a fissure and small openings. No wound care is necessary at this time. Patient reports that Dr. Berrios is going to round today to assess area. Keep area clean and dry. Will write for dry dressing to keep opening wounds off floor. Wound care will follow.
--- NOTE | 2018-03-13 10:13 | ASMTCMCOM ---
CM Note CM Note Notes: CM spoke to Dr. Villagran regarding d/c POC. Pt is not medically stable to d/c yet. Updates sent to [facility]. CM to follow. Plan: [facility] Date Signed: 03/13/2018 10:12 AM Electronically Signed By:GIBRAN Stevens
[2018-03-13] MEDS: SENNOSIDES/DOCUSATE SODIUM TAB PO SCH ×2 (10:45→22:00)
[2018-03-13] MEDS: guaiFENesin 600 MG TAB.ER PO SCH ×2 (10:45→22:00)
[2018-03-13] MEDS: APIXABAN 5 MG TAB PO SCH ×2 (10:45→22:00)
[2018-03-13] MEDS: DULoxetine 60 MG CAP PO SCH (10:45)
[2018-03-13] MEDS: TAMSULOSIN HCL 0.4 MG CAP PO SCH (10:45)
--- NOTE | 2018-03-13 11:18 | HOSPPROG ---
Hospitalist Progress Note Assessment/Plan: 82 yo M w PVD, vte here w sepsis, cellulitis of leg # Right lower extremity Infection - Increased redness, swelling, warmth on admission - MRI of RLE performed which shows soft tissue edema. No air, or concern for radiologic features of fasciitis. - ID consulted who recommend continuing vancomycin, hx of MRSA - ID ordered repeat MRI of R foot given worsening, which showed abscess in subQ fat medial to 1st metatarsal head, abscess also in plantar aspect of 1st MTP joint, question mild early osteo of medial sesamoid, fluid collection around 4th metatarsal head, question mild bone marrow edema of 1st metatarsal head which could represent osteitis or early osteo, cellulitis of R foot and peritendinitis extensor and flexor tendons - Discussed MRI findings with ID, Dr. Prabhakar, who recommended continuing Vancomycin, they will consult Podiatry/Surgery to evaluate MRI findings today - Blood cultures x2 collected, f/u results # Sepsis - Source RLE infection with management as above - LA improved from 2.5 to 1.7 - Holding antihypertensives # Chronic DVT - Seen on ultrasound on admission - Continue home El[place]quis #PVD - reasonable to check HALIMA of leg on this admit although deal w infection first FEN: S/p IVF, Regular diet Code: FULL Ppx: Home Apixaban Dispo: Pending clinical course Subjective: Patient reports feeling tired this morning Objective: Vital Signs Temp Pulse Resp BP Pulse Ox 36.5 C 69 14 114/61 92 03/13/18 08:00 03/13/18 08:00 03/13/18 08:00 03/13/18 08:00 03/13/18 08:00 Microbiology 03/11/18 12:18 Gram Stain - Final Foot - Swab Laboratory Results 03/11/18 04:15 03/11/18 04:15 03/12/18 03/13/18 03/14/18 05:59 05:59 05:59 Intake Total 740 Balance 740 - Physical Exam Constitutional: chronically ill appearing Eyes: PERRL Ears, Nose, Mouth, Throat: moist mucous membranes Cardiovascular: regular rate and rhythym Respiratory: no respiratory distress Gastrointestinal: soft, non-tender abdomen Skin: warm, erythema, rash Musculoskeletal: generalized weakness Neurologic: AAOx3 ICD10 Worksheet Patient Problems: Problems Problem Status Onset Chronic Disease Mgmt/TransitionalCare Acute DVT (deep venous thrombosis) Acute Dyspnea Acute Hypoxia Acute MRSA (methicillin resistant Staphylococcus aureus) Acute 05/10/16 MRSA cellulitis Acute Pneumonia Acute Pulmonary emboli Acute Upper GI bleed Acute
--- NOTE | 2018-03-13 13:36 | PCMIDPN ---
Assessment/Plan: Assessment: Right lower extremity cellulitis. Clearly clinically improving on vancomycin but advancement is not very quick over the weekend. MRI revealed an abscess on the lateral aspect of his 1st MTP of the right foot. Will have Podiatry come and evaluate that later today. Plan to continue antibiotic coverage and continue physical therapy in order to get him well enough for discharge. Plan: 1. Continue IV vancomycin at present dose. 2. Recheck vancomycin trough today. 3. Encourage ambulation as well as PT and OT. 4. Podiatry evaluation 03/10/18 10:28 03/13/18 13:34 Subjective: Patient is resting in his chair in his hospital room. No new complaints. Denies fevers or chills. States that his right leg swelling is unchanged over the weekend. Objective: Vancomycin # 5 Vital Signs Temp Pulse Resp BP Pulse Ox 36.4 C 80 16 119/64 94 03/13/18 12:00 03/13/18 12:00 03/13/18 12:00 03/13/18 12:00 03/13/18 12:00 Microbiology 03/11/18 12:18 Gram Stain - Final Foot - Swab Laboratory Results 03/11/18 04:15 03/11/18 04:15 03/12/18 03/13/18 03/14/18 05:59 05:59 05:59 Intake Total 740 Balance 740 ESR 97 MM/HR (0-20) H 03/11/18 04:15 C-Reactive Protein 64.0 mg/L (<10.0) H 03/11/18 04:15 - Physical Exam General Appearance: WD/WN, alert, no apparent distress, non-toxic Respiratory: lungs clear, No respiratory distress Cardiac/Chest: regular rate, rhythm, No tachycardia Skin: normal color, warm/dry, No rash Neuro/Psych: alert, normal mood/affect, oriented x 3 ICD10 Worksheet Patient Problems: Problems Problem Status Onset Chronic Disease Mgmt/TransitionalCare Acute DVT (deep venous thrombosis) Acute Dyspnea Acute Hypoxia Acute MRSA (methicillin resistant Staphylococcus aureus) Acute 05/10/16 MRSA cellulitis Acute Pneumonia Acute Pulmonary emboli Acute Upper GI bleed Acute
[2018-03-13] MEDS ORDERED: DEXAMETHASONE 4 MG/ML VIAL ONE (18:12)
[2018-03-13] MEDS ORDERED: POLYMYXIN B SULFATE 500,000 UNIT/10 ML SYR IRR ONE (18:12)
[2018-03-13] MEDS ORDERED: ROPIVACAINE HCL 150 MG/30 ML INJ ONE (18:12)
[2018-03-13] MEDS ORDERED: BUPIVACAINE 0.5% 30 ML SDV ONE (18:12)
[2018-03-13] MEDS ORDERED: LR 1,000 ML IV ONE (18:12)
[2018-03-13] MEDS ORDERED: BACITRACIN 50,000 UNITS/10 ML SYR IRR ONE (18:13)
--- NOTE | 2018-03-13 18:48 | PDANEPAE ---
ANE Past Medical History - Cardiovascular History Hx Hypertension: No Hx Arrhythmias: No Hx Chest Pain: No Hx Coronary Artery / Peripheral Vascular Disease: No Hx CHF / Valvular Disease: Yes Hx Palpitations: No Cardiovascular History Comment: CHF W/EDEMA BEVERLEY LEGS - Pulmonary History Hx COPD: Yes Hx Asthma/Reactive Airway Disease: No Hx Recent Upper Respiratory Infection: No Hx Oxygen in Use at Home: Yes O2 in Use at Home (L/minute): 4 Hx Sleep Apnea: Yes Sleep Apnea Screening Result - Last Documented: Positive Pulmonary History Comment: SHANNAN CURRENTLY NO TREATMENT - Neurologic History Hx Cerebrovascular Accident: No Hx Seizures: No Hx Dementia: No Neurologic History Comment: PERIPHERAL NEUROPATHY BEVERLEY FEET - Endocrine History Hx Diabetes: No - Renal History Hx Renal Disorders: No - Liver History Hx Hepatic Disorders: No - Neurological & Psychiatric Hx Hx Neurological and Psychiatric Disorders: No - Cancer History Hx Cancer: No - Congenital Disorder History Hx Congenital Disorders: No - GI History Hx Gastrointestinal Disorders: Yes - Other Health History Other Health History: 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 DVT R LEG 5 TIMES IN PAST - Chronic Pain History Chronic Pain: Yes (Lower back pain) - Surgical History Prior Surgeries: DEVIATED SEPTUM REPAIR. RTC REPAIR BEVERLEY. TOE AMPUTATION X4 TOES. FOOT SURG X2 BUNION & HAMMER TOE. HIP REPLACEMENT R 2000. HERNIA REPAIRS ING & UMBILICAL ANE Review of Systems Review of Systems: ANE Patient History - Allergies Allergies/Adverse Reactions: No Known Allergies Allergy (Verified 10/03/16 17:17) - Home Medications Home Medications: Albuterol [Proventil Inhaler HFA (*)] 1 - 2 puffs IH Q6 PRN 03/13/15 [Last Taken 1 Week Ago ~05/03/16] Apixaban [Eliquis] 5 mg PO BID 08/14/15 [Last Taken 03/03/18] Spironolactone [Aldactone 25 MG (*)] 25 mg PO DAILY@12 10/01/15 [Last Taken 01/10] Acetaminophen [Tylenol 325mg (*)] 325 - 650 mg PO Q6 PRN 02/13/16 [Last Taken ] Tamsulosin HCl [Flomax 0.4 MG (*)] 0.4 mg PO DAILY 02/13/16 [Last Taken 03/03/18 ] traZODone [traZODONE 100MG (*)] 50 mg PO HS 02/13/16 [Last Taken 03/02/18] Testosterone Cypionate 200 mg IM Q21D 06/09/16 [Last Taken 06/08/16] DULoxetine [Cymbalta 60 MG (*)] 60 mg PO DAILY 03/07/18 [Last Taken 03/03/18] Furosemide [Furosemide] 20 mg PO DAILY 03/07/18 [Last Taken 03/03/18] Gabapentin [Neurontin 100 MG (*)] 100 mg PO HS 03/07/18 [Last Taken 03/02/18] Methylphenidate HCl [Ritalin 5mg (*)] 5 mg PO DAILY 03/07/18 [Last Taken ] - NPO status NPO Since - Liquids (Date): 03/13/18 NPO Since - Liquids (Time): 11:00 NPO Since - Solids (Date): 03/13/18 NPO Since - Solids (Time): 11:00 - Smoking Hx Smoking Status: Former smoker - Family Anes Hx Family Hx Anesthesia Complications: NEG ANE Labs/Vital Signs - Labs Result Diagrams: 03/11/18 04:15 03/11/18 04:15 - Vital Signs Blood Pressure: 126/81 Heart Rate: 77 Respiratory Rate: 18 O2 Sat (%): 96 Height: 165.1 cm Weight: 95.254 kg ANE Physical Exam - Airway Neck exam: decreased ROM Mallampati Score: Class 3 Mouth exam: normal dental/mouth exam - Pulmonary Pulmonary: no respiratory distress - Cardiovascular Cardiovascular: regular rate and rhythym ANE Anesthesia Plan Total IV Anesthesia: Yes
--- NOTE | 2018-03-13 19:00 | GCON ---
PODIATRIC CONSULT. DATE OF CONSULTATION: 03/13/2018 Dr. Villagran contacted me regarding lower extremity infection/cellulitis/abscess right foot, requesting consult, consider bedside I& D. Patient was visited at bedside, denies fever or chills. Reports having a long history of lymphedema on the right limb often being 3 to 4 times its size and this time around very swollen. Foot he reported much more swollen than it has ever been. Reports a history of past foot infections and several foot surgeries in the past. He has known Dr. Akbar since 1999. [facility] a [facility]. Reports last surgery being about a year ago. Reports having peripheral neuropathy -lack of sensation for many years, and takes gabapentin for pain relief, but says it makes him very drowsy during the day. Denies any recent injury to the foot or the leg. Had a fall at his home, but reports falling on his face/head and not his foot. Then not being able to get up and get help. He does not feel the fall contributed to the foot issue. Chester relates living alone, and has had a friend who would help him out with foot care and applying creams and lotions once a week, however, that friend has not been around for a couple months now. Therefore, he has been unable to apply any creams or lotions. He also reports he has not able to be as active, much less walking due to back pain and has been resting more than usual. He relates he has a home compression unit for lymphedema, but has not used that in quite some time. He does not recall any triggering event to foot. Medical history remarkable for:Depression, COPD, Lymph Edema, chronic DVT, PE. Denies diabetes. PHYSICAL EXAMINATION: GENERAL: Pleasant male, appears to be a good historian in stable condition without distress and Orientated. LOWER EXTREMITIES: Examination reveals profound edema of the right lower extremity and foot. Edema in foot so profound it appeared that a full transmet amputation was perhaps performed at one time but with closer look, digital stumps noted, and 5th digit present and portion of the hallux - evidence of past surgery. Significant skin distension and erythema - cellulitis beginning along the dorsal, medial and plantar aspects of the 1st metatarsophalangeal joint area, to lesser degree the 5th metatarsal, to dorsal foot and then proximally to midshaft of the anterior aspect of the tibia , Skin foot/leg is very dry, scaling, and fissuring. Plantar to the first met head a skin fissure with dark eschar, centrally a very small ulcer, dry, without drainage. Medial to the first metatarsal had bullae formation, filled with fluid. 4th and 5th metatarsalheads without any bullae/obvious point of entry . There is no point of area pain or tenderness.. Skin temperature is warm, pulses DP and PT nonpalpable. Labs: WBC was elevated at 13.72 now at 6.01. MRI report: MRI was completed on 03/11/2018, with and without contrast. There appears to be an abscess in the subcutaneous fat medial to the metatarsal head, and also an abscess in the plantar aspect of the 1st metatarsophalangeal joint. Possible or questionable osteomyelitis of the tibial sesamoid. metalic artifact from deep hardware in the digits and forefoot. ASSESSMENT: 1. Cellulitis, infection right lower extremity. Apparent improvement with Vancomycin but slow and persisting. 2. Abscesses medial and plantar to the first Metatarsal head. 3. Questionable osteomyelitis tibial sesamoid. Presence of deep hardware in forefoot.Forefoot/digital deformities. 4. Chronic Lymphedema and PVD MRI and clinical findings warrant incision and drainage. Recommending in OR with local IV sedation to allow for deeper exploration of wound and to allow for extensive irrigation with antibiotic solution and somewhat partial suture closure if possible. . Plan to do later today. Patient has been placed n.p.o. I have reviewed with the patient the nature of the procedure and perip course, involving incision to drain abscesses. Reviewed the potential risk for delayed healing of these incisions and nonhealing due to vascular status, concerned with PVD, lymphedema and peripheral neuropathy condition. Goal is to allow for drainage of abscesses. However, possible additional surgery may be necessary at a later date pending on findings /progress. As well, recommending vascular consult, ABIs. The patient voiced understanding of the plan. /[id number]/MODL MTDD
[2018-03-13] MEDS ORDERED: PROPOFOL/EMULSION 500 MG/50 ML BOTTLE IV ONE (19:04)
[2018-03-13] MEDS ORDERED: fentaNYL 100 MCG/2 ML INJ ONE (19:04)
[2018-03-13] MEDS ORDERED: LIDOCAINE 2% 100 MG/5 ML SYR ONE (19:11)
[2018-03-13] MEDS ORDERED: LIDOCAINE 1% 300 MG/30 ML SDV ONE (19:33)
[2018-03-13] MEDS ORDERED: VANCOMYCIN 500 MG/10 ML VIAL IV ONE (19:37)
[2018-03-13] MEDS ORDERED: fentaNYL 100 MCG/2 ML INJ IVP PRN (19:41)
[2018-03-13] MEDS ORDERED: ONDANSETRON 4 MG/2 ML VIAL IVP PRN (19:41)
[2018-03-13] MEDS ORDERED: NALOXONE HCL 0.4 MG/ML INJ IVP PRN (19:41)
[2018-03-13] MEDS ORDERED: ALBUTEROL 3 ML DEYVIAL IH PRN (19:41)
--- NOTE | 2018-03-13 20:22 | POSTANESTH ---
Post Anesthetic Evaluation Cardiovascular Status: Similar to Pre-Op Cond Respiratory Status: Similar to Pre-op Cond. Level of Consciousness/Mental Status: Alert and Oriented Pain Control: Adequate, Prn Tx Ordered Nausea/Vomiting Control: Adequate, Prn Tx Ordered Complications Possibly Related to Anesthesia: None Noted
--- NOTE | 2018-03-13 20:30 | POSTOPPROG ---
Post Op Note Date of Operation: 03/13/18 Surgeon: Yovana Edmond Tosser: none Anesthesiologist: Kilo Dugan MD Anesthesia: LMA Pre-op Diagnosis: Infection, abscess right foot/leg Post-op Diagnosis: Infection, absces right foot/leg Indication: cellulitis abscess Procedure: Incision and drainage Findings: No remarkable drainage with incision, however, 2-3 cm tracking Inf/Abcess present in the surg proc area at time of surgery?: Yes Depth: Deep Incisional (Fascial) EBL: Minimal Complications: none. Drains: Other (nugauze)
[2018-03-13] MEDS: traZODone 100 MG TAB PO SCH (22:00)
[2018-03-13] MEDS: GABAPENTIN 100 MG CAP PO SCH (22:00)
[2018-03-14] MEDS: VANCOMYCIN HCL/NORMAL SALINE 250 ML IV SCH ×2 (03:30→16:41)
[2018-03-14 05:27] LABS: PLATELET COUNT 345 10^3/uL (150-400)
[2018-03-14] MEDS: guaiFENesin 600 MG TAB.ER PO SCH ×2 (09:06→21:01)
[2018-03-14] MEDS: APIXABAN 5 MG TAB PO SCH ×2 (09:06→21:02)
[2018-03-14] MEDS: SENNOSIDES/DOCUSATE SODIUM TAB PO SCH ×2 (09:06→21:11)
[2018-03-14] MEDS: TAMSULOSIN HCL 0.4 MG CAP PO SCH (09:06)
[2018-03-14] MEDS: DULoxetine 60 MG CAP PO SCH (09:07)
[2018-03-14] MEDS: ACETAMINOPHEN 325 MG TAB PO PRN ×2 (09:17→21:00)
--- NOTE | 2018-03-14 11:53 | GOP ---
DATE OF OPERATION: 03/13/2018 SURGEON: Yovana Edmond DPM ANESTHESIA: Local with light IV sedation. ANESTHESIOLOGIST: Uriel Dugan MD. PREOPERATIVE DIAGNOSIS: Cellulitis/infection/abscess, right foot. POSTOPERATIVE DIAGNOSIS: Cellulitis/infection/abscess, right foot. PROCEDURE PERFORMED: Incision and drainage , right foot. FINDINGS: Large void plantar first metatarsal head 2-3 cm in size, tracking medial first met head and plantar laterally. ESTIMATED BLOOD LOSS: Less than 5 cc. INDICATIONS: Persistent cellulitis, right foot and leg. MRI revealing 2 abscesses, 1 medial and 1 plantar to the 1st metatarsal head. Slow progress with IV antibiotic. Insensate high-risk foot with peripheral neuropathy and loss of protective sensation. Profound lymphedema. DESCRIPTION OF PROCEDURE: Patient was brought into the operating room, placed on the operating table in the supine position. Light intravenous sedation was administered by the anesthesiologist. A peripheral nerve block was obtained utilizing 5 cc of 0.5% Marcaine plain and 5 cc 1% lidocaine plain. The lower extremity was prepped and draped in usual sterile manner. No tourniquet was utilized. Attention was directed toward the medial aspect of the 1st metatarsophalangeal joint just dorsal to the bullae, a stab type incision was created through the subcutaneous tissue and no drainage was noted. Attention was directed toward the plantar aspect of the 1st metatarsal head in the area of skin defect noted on MRI, stab-type incision was created and immediately below subcutaneous tissue, tracking was noted extending deep plantar to first metatarsal head. Incision was enlarged by approximately 1 cm. With gentle probing, deep tracking and obvioius void was noted extending approximately 2-3 cm plantar lateral to the 1st metatarsal head to bone, and approximately 2 cm medial to the 1st metatarsal head. There was no drainage. No odor. Site swabbed for cultures. The wound was copiously irrigated with 3 L of bacitracin and vancomycin mixture with pulse irrigation system. Medial incision closed with 3-0 nylon. Plantar incision was partially closed with 2 horizontal nylon sutures. The wound had been lightly packed with quarter-inch Nu Gauze. Dressings included wet-to-dry 4 x 4, reinforced with Kerlix and an Junior bandage. The patient tolerated the procedure and anesthesia well and left the operating room with vital signs stable and vascular status intact to all digits. PATHOLOGY: Site was swabbed for cultures, aerobic, anaerobic, and fungal. PROGNOSIS: Concerning. Recommending vascular consult. Questionable healing ability. Questionable osteomyelitis. Presence of deep hardware /shifted/ loosening but not obvious intraoperatively. Profound lymphedema. Concern with arterial perfusion. Hoping for improvement with continued IV antibiotics. The patient was fitted with a postoperative shoe. /[id number]/MODL MTDD
--- NOTE | 2018-03-14 12:39 | PDCONSULT ---
Ocular Care Technician Note: S/ Chester related foot/leg feeling much better than yesterday. Denies pain. Relates feeling good. O/ Dressing intact, moist from wound drainage, blood. No purulence, no odor. Upon removal of dressing, significant reduction in edema and erythema of foot and leg. Contour of hallux and remaining lesser digits much more obvious now. A/ one day s/p I& D progressing well. Cellulitis resolving. P/ Recommending Vascular consult. Xrays reviewed. No gross signs of osteomyelitis. Possible loosening of hardware compared to views in June. Discussed with patient possibility of additional surgery pending on progress. Dressing changes: Sterile saline/wet to dry qd. Discharge home on IV abx a possiblity, along with wound care to assist in dressing changes. RONNIE CASTRO DPM
--- NOTE | 2018-03-14 13:17 | PCMIDPN ---
Assessment/Plan: # Right lower extremity cellulitis: DVT study shows chronic clot. MRI of R foot revealed multiple areas of abscess and early changes c/w OM ( R sesmoid and 1st met head ) --plan 6 week IV vancomycin --vanco T creeping up today, will decrease dose to 750mg IV q12h --follow OR cultures # Venous insufficiency: Hold off on compression for now due to acute infection. R leg remains markedly swollen; typically only 2 cm larger than the left [facility] # history of MRSA greater than 1 year ago # chronic lung disease : Wears 4 L at home; the chest x-ray on admission personally reviewed by me and was without infiltrate Medications Vancomycin 1 g IV q.12, #6 Subjective: Pt states his R-leg is feeling better and is "less red". Has been working with physical therapist, but has not been able to ambulate independently yet. Reluctant to go to SNF Scribe attestation: IKary, am scribing for, and in the presence of, Shaina Gomez MD. IShaina MD, personally performed the services described in this documentation, as scribed by Kary De Los Santos in my presence, and it is both accurate and complete. Objective: Microbiology 03/13 R-foot cx, pending results. GS negative. 03/07 Blood cx 2/2 sets, Neg Vital Signs Temp Pulse Resp BP Pulse Ox 36.3 C 75 16 106/57 L 96 03/14/18 11:05 03/14/18 11:05 03/14/18 11:05 03/14/18 11:05 03/14/18 11:05 Microbiology 03/11/18 12:18 Gram Stain - Final Foot - Swab Wound Culture - Final 03/13/18 19:49 Gram Stain - Final Foot - Eswab 03/13/18 19:49 Mycobacterial Smear (RAEGAN) - Final Foot - Eswab Mycobacterial Culture - Final Laboratory Results 03/14/18 04:23 03/14/18 04:23 03/13/18 03/14/18 03/15/18 05:59 05:59 05:59 Intake Total 740 880 Output Total 400 Balance 740 480 ESR 97 MM/HR (0-20) H 03/11/18 04:15 C-Reactive Protein 64.0 mg/L (<10.0) H 03/11/18 04:15 - Physical Exam General Appearance: alert, obese, other EENT: pale conjunctiva, poor dentition Respiratory: lungs clear, other (Decreased breath sounds; currently on oxygen supply via nasal cannula ) Neck: supple Cardiac/Chest: regular rate, rhythm (distant heart sounds ) Extremities: other (nontender to palpation consistent with peripheral neuropathy. Erythema of right anterior zurita less intense and w recession compared to prior exam. Post op dressing in place R foot) Abdomen: non-tender, soft, distended (mild) Skin: pallor, No rash Neuro/Psych: alert, normal mood/affect, oriented x 3 - Time Spent With Patient Time Spent with Patient: greater than 35 minutes Time Spent with Patient: Greater than 35 minutes spent on this patients care, greater than 50% of time spent counseling, educating, and coordinating care regarding the above mentioned plan. ICD10 Worksheet Patient Problems: Problems Problem Status Onset Chronic Disease Mgmt/TransitionalCare Acute DVT (deep venous thrombosis) Acute Dyspnea Acute Hypoxia Acute MRSA (methicillin resistant Staphylococcus aureus) Acute 05/10/16 MRSA cellulitis Acute Pneumonia Acute Pulmonary emboli Acute Upper GI bleed Acute
[2018-03-14] MEDS ORDERED: ALTEPLASE 2 MG VIAL IVP PRN (13:36)
--- NOTE | 2018-03-14 13:37 | PDIAF ---
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 PICC Care - Routine: Yes - Orders Isolation Type: None Diet Texture: Regular Texture Diet, Thin Liquids, Meds Whole w/Liquids - Labs/Radiology BMP Date: 03/23/18 (weekly ) CBC w/diff Date: 03/20/18 (weekly tuesday) CMP Date: 03/20/18 (weekly tuesday) CRP Date: 03/20/18 (weekly tuesday) Vanco Trough Date and Time: weekly Tuesday and , 03/20/18 and 03/23/18 first draws Call or Fax Lab and Imaging Results to: Shaina Gomez MD [facility] at fax [phone] - Follow Up Care Current Providers and Referrals: Sameer Velazquez MD [Primary Care Provider] - As per Instructions Shaina Gomez MD [Medical Doctor] - follow up in 10 days
--- NOTE | 2018-03-14 16:00 | HOSPPROG ---
Hospitalist Progress Note Assessment/Plan: The patient is a 82-year-old male with PMH right foot surgery who was admitted for right foot cellulitis. This patient is new to me. Reviewed patient's chart/records for this visit. ASSESSMENT/PLAN: Right foot cellulitis, status post I&D POD #1 Possible osteomyelitis, 1st metarsal/sesamoid Anemia, normocytic- stable PVD Chronic DVT, Hx DVTs - on Eliquis Hx cellulitis Diarrhea, chronic Hx C diff colitis -IV Abx, wound care. Appreciate ID and Podiatry recs. -Discussed case w/ Podiatry. -Check HALIMA. Consider vascular specialist consultation (surg vs IR) if results are abnl. -PT/OT/ISU. -Checked C diff test today. Negative for C diff. VTE prophylaxis: Eliquis Code Status: Full code Status: Inpatient for greater than 2 midnight stay. [facility] to SNF within a few days ____ SUBJECTIVE: Today the pt feels fatigued. He worked with therapy a bit. RN reported a large diarrheal foul smelling BM and checked for C diff. Pt says he always has diarrhea x 2 yrs. OBJECTIVE: Physical Exam: General: The patient is an obese, elderly male who is alert and in no acute distress. HEENT: normocephalic, extraocular movements intact, conjunctivae clear. Mucous membranes moist. Neck: trachea midline, no visible masses. Abd: Nondistended. Musculoskeletal: Normal muscle tone/bulk. Neuro: cranial nerves II XII grossly intact. Intact gross motor and sensory function. Psych: Appropriate mood and appropriate affect. Skin: No pallor. No petechiae. Heme/lymph: + 3 pitting peripheral edema at right lower extremity pretibial. Plus one pitting peripheral edema left lower extremity. Labs/Imaging/Other Tests: X-ray right foot-postsurgical changes. Foot Cx - anaerobic coag neg staph. Blood Cx - no growth. MRI R foot -SQ fat abscess medial to 1st metatarsal head, fluid collection around 4th metatarsal head, possible edema of 1st metatarsal head c/w OM, cellulitis R foot and peritendinitis extensor/flexor tendons of midfoot and forefoot. Atrophied muscles. Objective: Vital Signs Temp Pulse Resp BP Pulse Ox 36.3 C 75 16 106/57 L 96 03/14/18 11:05 03/14/18 11:05 03/14/18 11:05 03/14/18 11:05 03/14/18 11:05 Microbiology 03/13/18 19:49 Gram Stain - Final Foot - Eswab 03/11/18 12:18 Gram Stain - Final Foot - Swab Wound Culture - Final 03/13/18 19:49 Mycobacterial Smear (RAEGAN) - Final Foot - Eswab Mycobacterial Culture - Final Laboratory Results 03/14/18 04:23 03/14/18 04:23 03/13/18 03/14/18 03/15/18 05:59 05:59 05:59 Intake Total 740 880 Output Total 400 Balance 740 480 - Time Spent With Patient Time Spent with Patient: greater than 35 minutes Time Spent with Patient: Greater than 35 minutes spent on this patients care, greater than 50% of time spent counseling, educating, and coordinating care regarding the above mentioned plan. ICD10 Worksheet Patient Problems: Problems Problem Status Onset Chronic Disease Mgmt/TransitionalCare Acute DVT (deep venous thrombosis) Acute Dyspnea Acute Hypoxia Acute MRSA (methicillin resistant Staphylococcus aureus) Acute 05/10/16 MRSA cellulitis Acute Pneumonia Acute Pulmonary emboli Acute Upper GI bleed Acute
[2018-03-14] MEDS ORDERED: VANCOMYCIN 750 MG in D5W 150 ML IV SCH (16:30)
[2018-03-14] MEDS: VANCOMYCIN 750 MG in D5W 150 ML IV SCH (17:17)
--- NOTE | 2018-03-14 18:21 | PDIAF ---
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 PICC Care - Routine: Yes - Orders Isolation Type: None Diet Texture: Regular Texture Diet, Thin Liquids, Meds Whole w/Liquids - Labs/Radiology BMP Date: 03/23/18 (weekly ) CBC w/diff Date: 03/20/18 (weekly tuesday) CMP Date: 03/20/18 (weekly tuesday) CRP Date: 03/20/18 (weekly tuesday) Vanco Trough Date and Time: weekly Tuesday and , 03/20/18 and 03/23/18 first draws Call or Fax Lab and Imaging Results to: Shaina Gomez MD [facility] at fax [phone] - Follow Up Care Current Providers and Referrals: Sameer Velazquez MD [Primary Care Provider] - As per Instructions Shaina Gomez MD [Medical Doctor] - follow up in 10 days
[2018-03-14] MEDS: ALBUTEROL 60 PUFFS/8 GM MDI IH PRN (19:35)
[2018-03-14] MEDS: traZODone 100 MG TAB PO SCH (21:01)
[2018-03-14] MEDS: GABAPENTIN 100 MG CAP PO SCH (21:02)
[2018-03-15] MEDS: ACETAMINOPHEN 325 MG TAB PO PRN ×3 (03:59→16:28)
[2018-03-15] MEDS: VANCOMYCIN 750 MG in D5W 150 ML IV SCH ×2 (05:31→16:23)
[2018-03-15] MEDS: TAMSULOSIN HCL 0.4 MG CAP PO SCH (07:47)
[2018-03-15] MEDS: guaiFENesin 600 MG TAB.ER PO SCH (07:47)
[2018-03-15] MEDS: APIXABAN 5 MG TAB PO SCH (07:47)
[2018-03-15] MEDS: DULoxetine 60 MG CAP PO SCH (07:48)
[2018-03-15] MEDS: SENNOSIDES/DOCUSATE SODIUM TAB PO SCH (07:49)
[2018-03-15] MEDS ORDERED: BACITRACIN OINTMENT 1 PACKET TP ONE (13:55)
--- NOTE | 2018-03-15 14:08 | PDCONSULT ---
Pigment Pusher Note: s/ Denies fever or chills. Reports feeling well. Foot feels good o/ Dressing intact, mild drainage from plantar incision. no odor. Continued improvement, less edema, resolving erythema. a/2 days s/p I & D progressing very well right foot. Remarkable improvement. p/ Dressing change today. Nursing at this point to do daily dressing changes. Advised keeping wound dry from bathing. Chester may ambulate, but to wear postop shoe at all times. To follow up with his manugrapher, Dr. Berrios and wound care center for care. IV ABX as per ID. RONNIE CASTRO DPM
--- NOTE | 2018-03-15 14:37 | PDIAF ---
- Diagnosis Diagnosis: RLE cellulitis, foot abscess & OM R sesmoid and 1st met head Code Status: Full Code - Medication Management Batter Depositor Antibiotics: vancomycin 750mg IV q12h Half-Way Antibiotic Stop Date: 04/19/18 Discharge Medications: electronically signed and located in the Home Medication List. PICC Care - Routine: Yes - Orders Services needed: Registered Nurse, Physical Therapy, Occupational Therapy Isolation Type: None Diet Recommendation: cardiac -low fat low salt Diet Texture: Regular Texture Diet, Thin Liquids, Meds Whole w/Liquids Wound Care Instructions: Needs Wound Care Consult. Additional wound care recs to come from Consult. Sutures/[place] Site: Right foot - plantar. May be removed by Box Office Manager or Wound Care after 2-3 weeks from 04/12/18 Date to Remove Sutures/[place]: 03/30/18 Activity/Weight Bearing Restrictions: Use walker. May bear partial weight on R foot as tolerated - Labs/Radiology BMP Date: 03/23/18 (weekly ) CBC w/diff Date: 03/20/18 (weekly tuesday) CMP Date: 03/20/18 (weekly tuesday) CRP Date: 03/20/18 (weekly tuesday) Vanco [place]rough Date and Time: weekly Tuesday and , 03/20/18 and 03/23/18 first draws Call or Fax Lab and Imaging Results to: Shaina Gomez MD [facility] at fax [phone] - Follow Up Care Current Providers and Referrals: Sameer Velazquez MD [Primary Care Provider] - As per Instructions Shaina Gomez MD [Medical Doctor] - follow up in 10 days Siddharth Berrios MD [Doctor of Podiatric Medicine] - follow up in 2 weeks ()
--- NOTE | 2018-03-15 15:17 | ASMTLACE ---
LACE Length of stay for Answers: 7-13 days current admission Acuity / Level of Answers: Yes Care: Did the patient have an inpatient admission? Comorbidities - select Answers: Chronic pulmonary disease all that apply Opioid dependence / Chronic pain Other Notes: Hx of PEs/DVT; Pulm HTN # of Emergency department Answers: 1-2 visits in the last 6 months Score: 16 Date Signed: 03/15/2018 03:16 PM Electronically Signed By:Jennifer Anderson RN
[2018-03-15 15:47] VITALS: BP 100/62
--- NOTE | 2018-03-15 16:03 | ASMTDCNOTE ---
Case Management Discharge Discharge Order Complete? Answers: Yes Patient to Obtain Answers: Other Notes: [facility] Medications Transportation Arranged Answers: Other Notes: [facility] Transport will Pick (Date 03/15/2018 05:00 PM & Time) Faxed Final Orders Answers: Yes Agency/Facility Transfer Answers: Yes Report Printed & Faxed to Receiving Agency Discharge Comments Notes: D/w , final orders faxed. Dianna hernandez [facility] notified, RN to call report. Date Signed: 03/15/2018 03:31 PM Electronically Signed By:Jennifer Anderson RN
--- NOTE | 2018-03-15 18:56 | PDDCSUM ---
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 Shaina Gomez Podiatry-Dr. Yovana Edmond [facility] Course: The patient is an 82-year-old male with history of multiple right foot surgeries , lymphedema, peripheral vascular disease, venous stasis ulcers, right hip replacement, and DVTs of right lower extremity who tripped and fell at home on TuesdayMarch 03. He remained unable to get up until his neighbor found him on March 07. During those 4 days, redness and swelling of his right lower leg and foot progressively worsened. Patient was started on IV antibiotics. He underwent incision and drainage of a soft tissue abscess with extensive tracts in the right foot. Patient was healing appropriately and was sent to a halfway facility to continue IV antibiotics and continue getting physical therapy. Physical Exam: Gen: alert, oriented, in NAD. MSK: RLE moderately swollen, no visitble erythema, dressing on R foot CDI. Able to ambulate. Neuro CN II- XII grossly intact. Condition: Stable. Discharged to: [facility] facility[facility] Pertinent tests/labs/imaging: X-ray right foot-postsurgical changes. Foot Cx - Blood Cx - no growth. MRI R foot -SQ fat abscess medial to 1st metatarsal head, fluid collection around 4th metatarsal head, possible edema of 1st metatarsal head c/w OM, cellulitis R foot and peritendinitis extensor/flexor tendons of midfoot and forefoot. Atrophied muscles. Franko: blood cultures - negative. Foot swab cultures - mixed princess. Foot abscess cultures - anaerobic coag neg staph (prelim). Medications: Please see med rec form. MiraLax as needed for constipation. Vancomycin 750 mg IV q.12 hours for 6 weeks total. Special instructions: Weightbearing as tolerated. Start with partial weight- bearing on right foot for 1 week. Follow up: PCP Dr. Velazquez within 3 days of discharge from halfway facility. Tunnel Elastic Operator Zigzag Dr. Berrios in [address] Infect[address] disease specialist Dr. Gomez in 10 days. > 30 minutes of total time was spent on counseling and coordination of care for this patient's discharge.
[2018-03-29] MEDS ORDERED: TESTOSTERONE IM 100 MG/ML SYRINGE IM SCH (09:00)
== END 2018-03-15 17:25 | DRG 580 ==
LOC: EDUNIT# → F3E 19:38
PROVIDERS: ADMIT Internal Medicine; ATTEND Internal Medicine
PROC: 0JDQ0ZZ Extraction of Right Foot Subcutaneous Tissue and Fascia, Open Approach (ICD-10-PCS; 2018-03-13)
PROC: 02HV33Z Insertion of Infusion Device into Superior Vena Cava, Percutaneous Approach (ICD-10-PCS; principal; 2018-03-14)
DX: L03.115 Cellulitis of right lower limb (principal); M86.171 Other acute osteomyelitis, right ankle and foot; L02.611 Cutaneous abscess of right foot; D64.9 Anemia, unspecified; I73.9 Peripheral vascular disease, unspecified; I89.0 Lymphedema, not elsewhere classified; I83.015 Varicose veins of right lower extremity with ulcer other part of foot; K52.9 Noninfective gastroenteritis and colitis, unspecified; N40.0 Benign prostatic hyperplasia without lower urinary tract symptoms; F32.9 Major depressive disorder, single episode, unspecified; J44.9 Chronic obstructive pulmonary disease, unspecified; G47.30 Sleep apnea, unspecified; W01.0XXA Fall on same level from slipping, tripping and stumbling without subsequent striking against object, initial encounter; Z86.711 Personal history of pulmonary embolism; Z86.718 Personal history of other venous thrombosis and embolism; Z79.01 Long term (current) use of anticoagulants; Z96.641 Presence of right artificial hip joint; Z89.421 Acquired absence of other right toe(s)
CPT/HCPCS: 82435-PO; 82565-PO; 82947-PO; 84132-PO; 84295-PO; 84484-PO; 84520-PO; 85014-PO; 92523-GN; 92526-GN; 96374; 97116-GP; 97162-GP; 97166-GO; 97530-GO; 97530-GP; 97535-GO; A9585; C1751; G8978-GP-CK; G8979-GP-CJ; G8987-GO-CL; G8988-GO-CJ; G8996-GN-CH; G8996-GN-CI; G8997-GN-CI; G8998-GN-CH; J0690; J1100; J2001; J2704; J2795; J3010; J3370

== ENCOUNTER 2018-04-13 08:15 | Day surgery (SDC) | payer OTHER ==
[2018-04-13] MEDS ORDERED: POLYMYXIN B SULFATE 500,000 UNIT/10 ML SYR IRR ONE (08:40)
[2018-04-13] MEDS ORDERED: BUPIVACAINE/EPI 0.25% 30 ML SDV ONE (08:40)
[2018-04-13] MEDS ORDERED: BUPIVACAINE 0.25% 10 ML SDV ONE (08:40)
[2018-04-13] MEDS ORDERED: BACITRACIN 50,000 UNITS/10 ML SYR IRR ONE (08:40)
[2018-04-13] MEDS ORDERED: fentaNYL 100 MCG/2 ML INJ ONE (08:45)
[2018-04-13] MEDS ORDERED: PROPOFOL 200 MG/20 ML VIAL ONE ×2 (08:45→10:48)
[2018-04-13] MEDS ORDERED: LIDOCAINE 2% 5 ML SDV ONE (08:45)
[2018-04-13] MEDS ORDERED: PROPOFOL/EMULSION 500 MG/50 ML BOTTLE IV ONE (08:46)
[2018-04-13] MEDS ORDERED: LIDOCAINE 1% 2 ML INJ ID PRN (08:51)
[2018-04-13] MEDS ORDERED: LR 1,000 ML IV ONE (08:51)
--- NOTE | 2018-04-13 09:10 | PDANEPAE ---
ANE Past Medical History - Cardiovascular History Hx Hypertension: Yes Hx Arrhythmias: No Hx Chest Pain: No Hx Coronary Artery / Peripheral Vascular Disease: No Hx CHF / Valvular Disease: Yes Hx Palpitations: No Cardiovascular History Comment: htn. hypercholesterolemia. hx of DVT's. CHF. Well controlled CHF. Patient staes he really had Right heart failure after PE. Denies any history of left heart failure. - Pulmonary History Hx COPD: Yes Hx Asthma/Reactive Airway Disease: No Hx Recent Upper Respiratory Infection: No Hx Oxygen in Use at Home: Yes O2 in Use at Home (L/minute): 4L cont Hx Sleep Apnea: Yes Sleep Apnea Screening Result - Last Documented: Positive Pulmonary History Comment: central and obstructive apnea uses o2. hx of PE's x3. pulmonary htn but only when he had a PE. On 4l at home but his room air sat is 87%. - Neurologic History Hx Cerebrovascular Accident: No Hx Seizures: No Hx Dementia: No Neurologic History Comment: peripheral neuropathy - Endocrine History Hx Diabetes: No - Renal History Hx Renal Disorders: Yes Renal History Comment: BPH - Liver History Hx Hepatic Disorders: No - Neurological & Psychiatric Hx Hx Neurological and Psychiatric Disorders: Yes Neurological / Psychiatric History Comment: depression. anxiety. hx of acoholism - Cancer History Hx Cancer: No - Congenital Disorder History Hx Congenital Disorders: No - GI History Hx Gastrointestinal Disorders: Yes Gastrointestinal History Comment: diverticulitis. occ reflux. IBS - Other Health History Other Health History: hx of venous stasis ulcers. osteomyelitis of Right foot. RLE cellulitis- being followed by ID - Chronic Pain History Chronic Pain: Yes (chronic low back pain) - Surgical History Prior Surgeries: 03/13/18 I&D with [facility] of Right foot. 06/09/16 Left foot I&D with [facility]. 10/08/16 left partial resection of 5th metatarsal head with [facility]. 10/07/15 right great toe partial amputation left foot skin graft with [facility]. 03/17/15 left 3rd toe amputation with [facility] 03/08/14 ottoniel edwards with [facility]. DEVIATED SEPTUM REPAIR. bilateral RTC repairs. TOE AMPUTATION X4 TOES. FOOT SURG X2 BUNION & HAMMER TOE. HIP REPLACEMENT R 2000. HERNIA REPAIRS ING & UMBILICAL ANE Review of Systems Review of Systems: - Exercise capacity METS (RN): 3 METS ANE Patient History - Allergies Allergies/Adverse Reactions: No Known Allergies Allergy (Verified 04/12/18 15:38) - Home Medications Home Medications: Apixaban [Eliquis] BID 08/14/15 [Last Taken 04/12/18] Acetaminophen [Tylenol 325mg (*)] Q6 PRN 02/13/16 [Last Taken 05/09/16] Tamsulosin HCl [Flomax 0.4 MG (*)] 02/13/16 [Last Taken 03/03/18] traZODone [traZODONE 100MG (*)] HS 02/13/16 [Last Taken 03/02/18] Testosterone Cypionate IM Q21D 06/09/16 [Last Taken 06/08/16] DULoxetine [Cymbalta 60 MG (*)] 03/07/18 [Last Taken 03/03/18] Furosemide 03/07/18 [Last Taken 04/12/18] Gabapentin [Neurontin 100 MG (*)] HS 03/07/18 [Last Taken 03/02/18] Methylphenidate HCl [Ritalin 5mg (*)] 03/07/18 [Last Taken 03/03/18] Hydrocortisone 1% cream (*) 04/12/18 [Last Taken Unknown] Ventolin Hfa Inhaler 04/12/18 [Last Taken Unknown] - Smoking Hx Smoking Status: Former smoker - Family Anes Hx Family Hx Anesthesia Complications: none ANE Labs/Vital Signs - Vital Signs Height: 165.1 cm Weight: 95.254 kg ANE Physical Exam - Airway Neck exam: FROM Mallampati Score: Class 2 Mouth exam: poor dentition - Pulmonary Pulmonary: no respiratory distress, no rales or rhonchi, clear to auscultation - Cardiovascular Cardiovascular: regular rate and rhythym, no murmur, rub, or gallop - ASA Status ASA Status: III ANE Anesthesia Plan Anesthesia Plan: MAC
[2018-04-13] MEDS ORDERED: PHENYLEPHRINE HCL 100 MCG/ML SYR IVP PRN (09:14)
[2018-04-13] MEDS ORDERED: fentaNYL 100 MCG/2 ML INJ IVP PRN (09:14)
[2018-04-13] MEDS ORDERED: ONDANSETRON 4 MG/2 ML VIAL IVP PRN (09:14)
[2018-04-13] MEDS ORDERED: DEXAMETHASONE 4 MG/ML VIAL IVP PRN (09:14)
[2018-04-13] MEDS ORDERED: PROMETHAZINE HCL 25 MG/ML INJ IVP PRN (09:14)
[2018-04-13] MEDS ORDERED: LR 500 ML IV PRN (09:14)
[2018-04-13] MEDS ORDERED: NALOXONE HCL 0.4 MG/ML INJ IVP PRN (09:14)
[2018-04-13] MEDS ORDERED: METOCLOPRAMIDE 10 MG/2 ML VIAL IVP PRN (09:14)
[2018-04-13] MEDS ORDERED: oxyCODONE IR 5 MG TAB PO PRN (09:14)
[2018-04-13] MEDS ORDERED: HYDROmorphONE/DILAUDID 2 MG/ML INJ IVP PRN (09:14)
--- NOTE | 2018-04-13 09:21 | PDHPUP ---
History & Physical Update H&P update statement: This history and physical update is based on an assessment of the patient which was completed after admission or registration (within 24 hours), but prior to the surgery/procedure. H&P update: H&P reviewed & patient examined, no change in patient's condition since H&P completed
--- NOTE | 2018-04-13 11:08 | POSTOPPROG ---
Post Op Note Date of Operation: 04/13/18 Surgeon: Siddharth Berrios Deputy Administrator: none Anesthesiologist: jh Anesthesia: IV Sedation Pre-op Diagnosis: osteo right 1st ray Post-op Diagnosis: same Indication: bone infection Procedure: partial 1st ray amputation Findings: gout Inf/Abcess present in the surg proc area at time of surgery?: Yes Depth: Deep Incisional (Fascial) EBL: Minimal Total fluids administered: 20cc 9/1 .25% marcaine plain and with epi Drains: Bill Alicia
--- NOTE | 2018-04-13 11:11 | POSTANESTH ---
Post Anesthetic Evaluation Cardiovascular Status: Normal, Stable Respiratory Status: Normal, Stable Level of Consciousness/Mental Status: Can Participate in Eval Pain Control: Adequate, Prn Tx Ordered Nausea/Vomiting Control: Adequate, Prn Tx Ordered Complications Possibly Related to Anesthesia: None Noted
[2018-04-13] MEDS ORDERED: VANCOMYCIN 500 MG in D5W 100 ML IV SCH (11:30)
[2018-04-13 13:22] VITALS: BP 135/86
--- NOTE | 2018-04-14 07:30 | GOP ---
DATE OF OPERATION: 04/13/2018 SURGEON: Siddharth Berrios DPM STEELWORKER: None. ANESTHESIA: Local with MAC. ANESTHESIOLOGIST: Vimal Rao MD. PREOPERATIVE DIAGNOSIS: 1. Ulceration plantar right 1st metatarsal head. 2. Osteomyelitis, right 1st metatarsal head. 3. Retained hardware, right 1st metatarsal head and proximal phalanx. POSTOPERATIVE DIAGNOSIS: 1. Ulceration plantar right 1st metatarsal head. 2. Osteomyelitis, right 1st metatarsal head. 3. Retained hardware, right 1st metatarsal head and proximal phalanx. PROCEDURE PERFORMED: 1. Partial right 1st ray resection. 2. Removal of retained hardware, right 1st metatarsal. 3. Primary closure of ulceration with rotational flap. FINDINGS: SPECIMENS: Pathology bone specimen sent for culture and sensitivity and pathological evaluation. ESTIMATED BLOOD LOSS: Minimal. DESCRIPTION OF PROCEDURE: Patient presented to [facility] and was cleared for the inte nded procedure. Patient was taken to the operating room and placed on the table in supine position. IV sedation was started per the anesthesia department. Foot was anesthetized and infiltrated in ner ve block fashion. Foot was prepped, scrubbed and draped in usual sterile fashion. Following exsangu ination by elevation and Esmarch bandage, pneumatic ankle tourniquet was inflated to 250 mmHg. At this time, patient was placed into a Trendelenburg position. The obvious ulceration on the planta r aspect of the foot was identified and a [place] elevator was introduced straight down to the bone in the 1st metatarsal head. It was decided at this time that a partial 1st ray amputation would be perf ormed. At this point, the incision was made starting distally over the remaining proximal phalanx pr oximally toward the ulceration. The incision was then carried around the circular ulceration and car ried proximally up the plantar aspect of the 1st metatarsal shaft. This incision was carried deep ut ilizing sharp blunt dissection, making sure that all the vascular structures were identified and retr acted at this time and all superficial bleeders were cauterized. The incision was carried down until the interposing ulcerative tissue could be dissected free and removed. A capsulotomy was performed on the plantar aspect and dissected free medially and laterally to allow for adequate exposure to the metatarsal and proximal phalanx. The sesamoids and the metatarsophalangeal joint appear to be fused at this time. There was noted to be a soft area in the metatarsal head, so it was decided that the resection would occur proximal to the sesamoid apparatus. Utilizing a sagittal saw, an osteotomy was performed and the skin and deep tissues were freed up from the bone. At this time the osteotomy tho ugh could not be completely performed due to the retained hardware in the 1st metatarsal. The dorsal flap was retracted to allow for adequate access to the retained hardware, which was then r emoved so that the osteotomy could be completed with an osteotome and mallet. The bone was then dawit shari and sent in for culture and sensitivity with the screw back in place in the metatarsal as well as the proximal phalanx. The remaining proximal metatarsal appeared to have a solid appearance, but a small wedge was then taken from this area with the sagittal saw and sent in for pathological evaluati on. Upon completion of this, the entire area was flushed with sterile saline and antibiotic rinse in a pulse lavage fashion. Upon completion of this, the deep tissue was closed with 2-0 Vicryl. It wa s decided that there would be the potential of a hematoma, so a Ibll-Alicia drain was placed into t he site before skin closure was obtained with 3-0 nylon. The ulcerative area was still present, so a crescent-ramirez shaped incision was made to the medial side of the incision and the tissue was freed u p appropriately and rotated in to close up the deficit as well. Upon completion of this, the area wa s dressed with Betadine-soaked Adaptics, 4x4s, Bryson, and Coban. The patient was taken to recovery r oom with vital signs stable to the foot. HEMOSTASIS: PAT at 250 mmHg by 52 minutes. MATERIALS: None. INJECTABLES: 20 cc 9:1 ratio 0.25% Marcaine plain, 0.25% Marcaine with epi preoperatively. COMPLICATIONS: None. /[id number]/MODL
== END 2018-04-13 13:23 ==
LOC: FSGY 08:15
PROVIDERS: ATTEND Podiatrist Primary Podiatric Medicine
PROC: 0Y6M0Z9 Detachment at Right Foot, Partial 1st Ray, Open Approach (ICD-10-PCS; principal; 2018-04-13 09:30)
DX: L97.519 Non-pressure chronic ulcer of other part of right foot with unspecified severity (principal); M86.171 Other acute osteomyelitis, right ankle and foot
CPT/HCPCS: J2704; J3010; J3370

== ENCOUNTER 2018-05-08 16:53 | Emergency (ER) | payer OTHER ==
--- NOTE | 2018-05-08 16:59 | EDPHY ---
H & P Time Seen by Provider: 05/08/18 19:04 HPI/ROS: Chief complaint. Syncope and fall HPI. Patient is an 82-year-old male here by EMS. Patient tells me he was lying down taking and nap. The doorbell rang is neighbor was delivering his male. He jumped up too fast and got lightheaded. He passed out fell backwards struck the back of his head. Denies chest pain, shortness of breath, fever. He is on Eliquis for DVT and PE. Patient tells me he is compliant with his Eliquis. He was recently discharged from rehab because of osteomyelitis of his right 1st metatarsal. He lives alone. He had some diarrhea earlier this afternoon and feels he may need to have diarrhea again. He does have home health visiting 2 times per week. The last time was last . ROS 10 systems were reviewed and negative with the exception of the elements mentioned in the history of present illness Past Medical/Surgical History: Osteomyelitis 1st metatarsal with surgery March 2018, PE x3, DVT, chronic lymphedema right lower extremity. He has sleep apnea, COPD. He has had hip replacement. He has had C diff. BPH Social History: Single and lives alone. Nonsmoker. No alcohol Smoking Status: Former smoker Physical Exam: General Appearance: Alert well-developed male mild distress. Vital signs are stable. 89% saturation room air Eyes: Pupils equal and round no pallor or injection. ENT, no hemotympanum or Pineda sign. No bumps to the head. No oral pharyngeal or dental trauma. Respiratory: There are no retractions, lungs are clear to auscultation. Cardiovascular: Regular rate and rhythm. Gastrointestinal: Abdomen is soft and nontender, no masses, bowel sounds normal. Neurological: Awake and alert, sensory and motor exams grossly normal. Skin: Warm and dry, no rashes. Musculoskeletal: Neck is mildly and diffusely tender. No T, L, S spine tenderness Extremities the dressing on his right lower extremity Psychiatric: Patient is oriented X 3, there is no agitation. Constitutional: Initial Vital Signs Temperature (C) 36.7 C 05/08/18 16:53 Heart Rate 94 05/08/18 16:53 Respiratory Rate 16 05/08/18 16:53 Blood Pressure 131/80 H 05/08/18 16:53 O2 Sat (%) 89 L 05/08/18 16:53 O2 Delivery Mode Room Air O2 (L/minute) 4 Allergies/Adverse Reactions: No Known Allergies Allergy (Verified 05/08/18 17:16) Home Medications: Medication Instructions Recorded Apixaban [Eliquis] BID 08/14/15 Acetaminophen [Tylenol 325mg (*)] Q6 PRN 02/13/16 Tamsulosin HCl [Flomax 0.4 MG (*)] 02/13/16 traZODone [traZODONE 100MG (*)] HS 02/13/16 Furosemide 03/07/18 Gabapentin [Neurontin 100 MG (*)] HS 03/07/18 Methylphenidate HCl [Ritalin 5mg 03/07/18 (*)] DULoxetine 05/08/18 FLUoxetine 05/08/18 HYDROcodone BITARTRATE 05/08/18 Spironolactone 05/08/18 Zyrtec 05/08/18 Medical Decision Making - Diagnostics EKG Interpretation: EKG interpreted by me shows normal sinus rhythm with prolonged NM interval but not first-degree AV block. Left axis deviation. QRS is otherwise normal. There is no significant ST elevation or depression. No arrhythmia. The rate is 90 Imaging Results: Imaging Impressions Cervical Spine CT 05/08/18 17:20 Impression:1. Negative noncontrast CT of the head with no intracranial posttraumatic sequela identified. 2. Likely incidental left frontal sinus disease. 2. CT Cervical Spine Without Contrast History: Trauma. Fall. Syncope. Eliquis. Technique: Multi-slice ultrathin single breath-hold helical CT through the neck from the skull base through the thoracic inlet without contrast. Soft tissue and bone window evaluation is performed. Sagittal and coronal reconstructions are obtained. Dose reduction techniques were utilized. Findings: Alignment is anatomic. No obvious acute fracture or dislocation is identified. There are old mild compressions of C7 and T1 that are stable since an old chest CT in August 2015, considering adjacent exuberant osteophyte formation and are associated with local posterior longitudinal ligament ossification. Disk spaces are relatively well maintained. Facets are normally aligned and intact. The skull base-C1 and C1-C2 relationships are normally aligned. There is extensive osteoarthritic change of the joint between the odontoid process and the anterior ring of C1. The facets are normally aligned however there is severe degenerative facet osteoarthritic change on the left between C2 and C5 and at C7-T1 and on the right between C3 for and C6. There is probably fusion of the left C2-C3 facet joint. The odontoid process is intact. There is no evidence of a prevertebral or epidural hematoma. The cervical thoracic junction is normally aligned. Impression: Nothing acute identified. If there is concern for instability, then consider lateral flexion-extension views and/or cervical MRI. Emergency final concordant results discussed with Dr. Arreguin at 6:07 PM. General information for patients regarding this examination can be found at [facility]. If you have questions or comments about this report, please contact me at (hospital) or [phone] (cell). Head CT 05/08/18 17:20 Impression:1. Negative noncontrast CT of the head with no intracranial posttraumatic sequela identified. 2. Likely incidental left frontal sinus disease. 2. CT Cervical Spine Without Contrast History: Trauma. Fall. Syncope. Eliquis. Technique: Multi-slice ultrathin single breath-hold helical CT through the neck from the skull base through the thoracic inlet without contrast. Soft tissue and bone window evaluation is performed. Sagittal and coronal reconstructions are obtained. Dose reduction techniques were utilized. Findings: Alignment is anatomic. No obvious acute fracture or dislocation is identified. There are old mild compressions of C7 and T1 that are stable since an old chest CT in August 2015, considering adjacent exuberant osteophyte formation and are associated with local posterior longitudinal ligament ossification. Disk spaces are relatively well maintained. Facets are normally aligned and intact. The skull base-C1 and C1-C2 relationships are normally aligned. There is extensive osteoarthritic change of the joint between the odontoid process and the anterior ring of C1. The facets are normally aligned however there is severe degenerative facet osteoarthritic change on the left between C2 and C5 and at C7-T1 and on the right between C3 for and C6. There is probably fusion of the left C2-C3 facet joint. The odontoid process is intact. There is no evidence of a prevertebral or epidural hematoma. The cervical thoracic junction is normally aligned. Impression: Nothing acute identified. If there is concern for instability, then consider lateral flexion-extension views and/or cervical MRI. Emergency final concordant results discussed with Dr. Arreguin at 6:07 PM. General information for patients regarding this examination can be found at [facility]. If you have questions or comments about this report, please contact me at (hospital) or [phone] (cell). Chest X-Ray 05/08/18 17:46 Impression: 1. Bronchitis. 2. Tortuous thoracic aorta. 3. No pneumonia or congestive heart failure. CT head and cervical spine showed no acute injury. 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 No evidence of intracranial bleeding. Reviewed by me and discussed with Dr. Fabian Procedures: IV normal saline, monitor ED Course/Re-evaluation: Re-evaluation 7:00 p.m.. Patient and I discussed imaging lab EKG findings. We discussed treatment plan. I have offered admission to the patient however he is adamant that he can care for himself at home. He has groceries delivered and feels that the 2 visits per week by home health nurse are adequate. He declines admission. We have discussed importance of follow-up and further evaluation as well as criteria for return. He expresses understanding and Differential Diagnosis: I considered intracranial bleeding and skull fracture is the patient is on Eliquis. I considered cervical spine injury. I considered acute coronary syndrome. It sounds like the patient was taking a nap and got up too fast and probably had transient orthostatic hypotension. Do not have any findings of acute injury or medical problems - Data Points Laboratory Results: Laboratory Results 05/08/18 17:14 05/08/18 17:14 05/08/18 05/08/18 05/08/18 17:14 17:14 17:03 WBC 9.49 10^3/uL 10^3/uL (3.80-9.50) RBC 4.11 10^6/uL L 10^6/uL (4.40-6.38) Hgb 12.2 g/dL L g/dL (13.7-17.5) Hct 40.2 % % (40.0-51.0) MCV 97.8 fL fL (81.5-99.8) MCH 29.7 pg pg (27.9-34.1) MCHC 30.3 g/dL L g/dL (32.4-36.7) RDW 15.6 % H % (11.5-15.2) Plt Count 408 10^3/uL H 10^3/uL (150-400) MPV 8.6 fL L fL (8.7-11.7) Neut % (Auto) 70.9 % % (39.3-74.2) Lymph % (Auto) 16.1 % % (15.0-45.0) Sargent % (Auto) 8.6 % % (4.5-13.0) Eos % (Auto) 3.2 % % (0.6-7.6) Baso % (Auto) 0.6 % % (0.3-1.7) Nucleat RBC Rel Count 0.0 % % (0.0-0.2) Absolute Neuts (auto) 6.72 10^3/uL H 10^3/uL (1.70-6.50) Absolute Lymphs (auto) 1.53 10^3/uL 10^3/uL (1.00-3.00) Absolute Monos (auto) 0.82 10^3/uL H 10^3/uL (0.30-0.80) Absolute Eos (auto) 0.30 10^3/uL 10^3/uL (0.03-0.40) Absolute Basos (auto) 0.06 10^3/uL 10^3/uL (0.02-0.10) Absolute Nucleated RBC 0.00 10^3/uL 10^3/uL (0-0.01) Immature Gran % 0.6 % % (0.0-1.1) Immature Gran # 0.06 10^3/uL 10^3/uL (0.00-0.10) Sodium 137 mEq/L mEq/L (135-145) Potassium 4.9 mEq/L mEq/L (3.5-5.2) Chloride 101 mEq/L mEq/L (97-110) Carbon Dioxide 28 mEq/l mEq/l (22-31) Anion Gap 8 mEq/L mEq/L (6-14) BUN 20 mg/dL mg/dL (7-23) Creatinine 1.3 mg/dL mg/dL (0.7-1.3) Estimated GFR 53 Glucose 120 mg/dL H mg/dL (70-100) Calcium 10.3 mg/dL mg/dL (8.5-10.4) POC Troponin I 0.00 ng/mL ng/mL (0.00-0.08) Medications Given: Discontinued Medications Sodium Chloride (Ns) 1,000 mls @ 0 mls/hr IV ONCE ONE; Wide Open PRN Reason: Protocol Stop: 05/08/18 17:21 Last Admin: 05/08/18 17:59 Dose: 1,000 mls Point of Care Test Results: Chemistry 05/08/18 17:03 POC Troponin I 0.00 ng/mL ng/mL (0.00-0.08) Departure - Departure Disposition: Home, Routine, Self-Care Clinical Impression: Syncope and collapse Condition: Good Instructions: Syncope (ED) Additional Instructions: Continue regular medication Return for chest discomfort, another passing out episode or inability to care for yourself at home Referrals: Patient,NotPresent [Unknown] - As per Instructions
[2018-05-08] MEDS ORDERED: NS 1,000 ML IV ONE (17:20)
[2018-05-08 17:30] LABS: PLATELET COUNT 408 10^3/uL (150-400)
--- NOTE | 2018-05-08 17:52 | CPEKG ---
Test Reason : OPEN Blood Pressure : / mmHG Vent. Rate : 090 BPM Atrial Rate : 090 BPM P-R Int : 229 ms QRS Dur : 092 ms QT Int : 344 ms P-R-T Axes : 039 -36 064 degrees QTc Int : 421 ms Normal sinus rhythm Left axis deviation Low voltage, extremity and precordial leads Abnormal R-wave progression, early transition Confirmed by Rodger Arreguin ([id number]) on 05/08/2018 5:52:19 PM Referred By: Confirmed By:Rodger Arreguin
[2018-05-08 19:24] VITALS: BP 138/80
[2018-05-09] MEDS ORDERED: HYDROCODONE/APAP 5/325 TAB ONE (04:07)
[2018-05-09] MEDS ORDERED: HYDROCODONE/APAP 5/325 TAB PO ONE (04:12)
== END 2018-05-08 22:04 | disposition home or self-care (01) ==
LOC: EDUNIT#
DX: R55 Syncope and collapse (principal); E86.9 Volume depletion, unspecified
CPT/HCPCS: 84484-ER

== ENCOUNTER 2018-05-11 04:16 | Inpatient (IN) | payer OTHER ==
[2018-05-11] MEDS ORDERED: NS 1,000 ML IV ONE (04:21)
--- NOTE | 2018-05-11 04:28 | EDPHY ---
H & P Time Seen by Provider: 05/11/18 04:21 HPI/ROS: HPI CHIEF COMPLAINT: Syncope x2. HISTORY OF PRESENT ILLNESS: 82-year-old male, history of multiple medical problems including COPD on oxygen 4 L, obstructive sleep apnea, DVT, PE, osteomyelitis and cellulitis of the right leg, C diff, presents emergency room after 2 syncopal episodes tonight. He was recently in the emergency room on the 08 of May after he had a syncopal episode. He lives alone apartment by himself. States he got up to use the bathroom this evening and had a syncopal episode. He called 911 for a lift assist he did not initially want to come to the hospital however after they got him up he had another syncopal episode witnessed by EMS and fire. He really did not want come to the emergency room. They report he had blood pressure in the 90 systolic. Room air saturation 83% on room air. 4 L nasal cannula appropriate 92%. OF NOTE THIS PATIENT APPEARS DRY ON EXAM. DRY MUCOUS MEMBRANES. DRY MUCOSA. DRY SKIN. MOST LIKELY VOLUME DEPLETED. The patient denies any chest pain or shortness of breath upon arrival. He states that he felt fine however did have 2 syncopal episodes. Past Medical History: DVT PE on Eliquis, osteomyelitis, right foot leg cellulitis peripheral vascular disease, C diff, SHANNAN, COPD Past Surgical History: Right foot surgery Social History: Denies drugs alcohol tobacco. Family History: Noncontributory ROS REVIEW OF SYSTEMS: 10 Systems were reviewed and negative with the exception of the elements mentioned in the history of present illness. Exam Constitutional dry on exam, elderly, nontoxic triage nursing summary reviewed, vital signs reviewed, awake/alert. Vital signs stable. Eyes normal conjunctivae and sclera, EOMI, PERRLA. HENT normal inspection, atraumatic, dry mucus membranes, no epistaxis, neck supple/ no meningismus, no raccoon eyes. Respiratory clear to auscultation bilaterally, normal breath sounds, no respiratory distress, no wheezing. Cardiovascular rate normal, regular rhythm, no murmur, no edema, distal pulses normal. Gastrointestinal protuberant abdomen. soft, non-tender, no rebound, no guarding , normal bowel sounds, no distension, no pulsatile mass. Genitourinary no CVA tenderness. Musculoskeletal right foot: Dressing in place. Bottom of the right foot towards the distal aspect of the 1st metatarsal there is a wound. No foul smell. Dressing in place. no midline vertebral tenderness, full range of motion, no calf swelling, no tenderness of extremities, no meningismus, good pulses, neurovascularly intact. Skin pink, warm, & dry, no rash, skin atraumatic. Neurologic awake, alert and oriented x 3, AAOx3, moves all 4 extremities equally, motor intact, sensory intact, CN II-XII intact, normal cerebellar, normal vision, normal speech. Psychiatric normal mood/affect. Heme/Lymph/Immune no lymphadenopathy. Differential Diagnosis: Includes but is not limited to in a particular order vasovagal syncope, orthostatic syncope, cardiac arrhythmia, dehydration, electrolyte disturbance, acute coronary syndrome, DVT, PE, pneumonia, COPD, hypoxia Medical Decision Making: Plan for this patient IV establishment blood draw, EKG , chest x-ray, basic blood work, gentle IV fluids, cardiac monitoring. Will plan to admit the patient as he has had 2 syncopal episodes tonight. Recently was in the emergency room On May 08 with a syncopal episode. Re-evaluation: EKG interpretation by me on record in [facility] system. Impression time of EKG 4:21 a.m. Sinus rhythm rate of 84 with no acute ischemic change. When I compare this to his old EKG dated 03/07/2018 very similar morphology. 0617: Labs reviewed. Troponin negative. EKG nonischemic. Chest x-ray reviewed shows tortuous aorta. Poor inspiration. EKG nonischemic. Additionally the patient's right leg chronic right foot wound. Sutures in place. Patient tells me the sutures are due to be removed on Tuesday. No kavin pus. Has a wound that is healing on the bottom right foot. Plan for hospital admission Dr. Menendez. Agrees to admit. Patient has received 1 L fluid here in the emergency room. Patient is on multiple diuretics most likely causing him to be dehydrated volume depleted and having syncopal episodes when he goes to stand or stand up. Plan for patient IV fluids, hydrate, admit today. Source: Patient, EMS - Medical/Surgical History Hx Asthma: No Hx Chronic Respiratory Disease: Yes Hx Diabetes: No Hx Cardiac Disease: No Hx Renal Disease: No Hx Cirrhosis: No Hx Alcoholism: No Hx HIV/AIDS: No Hx Splenectomy or Spleen Trauma: No Other PMH: PE x3, DVT's, Pulmonary HTN, multiple rt foot surgeries, sleep apnea , COPD, venous stasis ulcers, R hip replacement, right and left rotator cuff repair. hx lymphadema RLE that "flares up". 2nd toe left foot amp 08/24/17. mrsa right foot, afib, CHF, periferal neuropathy, infection 03/2018 right foot, cdiff 2017 - Social History Smoking Status: Former smoker Constitutional: Initial Vital Signs O2 Sat (%) 93 05/11/18 04:21 O2 Delivery Mode Room Air O2 (L/minute) 4 Allergies/Adverse Reactions: No Known Allergies Allergy (Verified 05/11/18 04:25) Home Medications: Medication Instructions Recorded Apixaban [Eliquis] 5 mg PO BID 08/14/15 Tamsulosin HCl [Flomax 0.4 MG (*)] 0.4 mg PO DAILY 02/13/16 Methylphenidate HCl [Ritalin 5mg 5 mg PO DAILY 03/07/18 (*)] Cetirizine [ZyrTEC 10 mg (*)] 10 mg PO DAILY 05/08/18 DULoxetine [Cymbalta 60 MG (*)] 60 mg PO DAILY 05/08/18 Spironolactone [Aldactone 25 MG 25 mg PO DAILY 05/08/18 (*)] Acetaminophen [Tylenol 325mg (*)] 325 mg PO Q6HRS PRN 05/11/18 Albuterol [Proventil Inhaler HFA 1 - 2 puffs IH Q4H PRN 05/11/18 (*)] Furosemide [Lasix 20 MG (*)] 20 mg PO DAILY 05/11/18 Gabapentin [Neurontin 100 MG (*)] 100 mg PO HS 05/11/18 Hydrocortisone 2.5% 1 stefanie TP BID PRN 05/11/18 [Hydrocortisone 2.5% cream (*)] Polyethylene Glycol 3350 [Miralax 17 gm PO DAILY 05/11/18 17 gm (*)] Sodium Cl Nasal [[place] (*)] 1 spray NS DAILY PRN 05/11/18 Testosterone IM [Testosterone 200 mg IM Q14D 05/11/18 100mg/ml IM inj (*)] guaiFENesin [Mucinex 600 MG (*)] 600 mg PO BID 05/11/18 traZODone [traZODONE 50MG (*)] 50 mg PO HS 05/11/18 Medical Decision Making - Data Points Laboratory Results: Laboratory Results 05/11/18 04:41 05/11/18 04:41 Medications Given: Acetaminophen (Tylenol) 650 mg PO Q4HRS PRN PRN Reason: Pain, Mild/Fever, Can Take PO Stop: 11/07/18 06:12 Last Admin: 05/12/18 05:42 Dose: 650 mg Apixaban (Eliquis) 5 mg PO BID CALIXTO Stop: 11/07/18 10:44 Last Admin: 05/11/18 20:16 Dose: 5 mg Duloxetine HCl (Cymbalta) 60 mg PO DAILY [place]IXTO Stop: 11/07/18 10:44 Last Admin: 05/11/18 13:27 Dose: 60 mg Gabapentin (Neurontin) 100 mg PO HS CALIXTO Stop: 11/07/18 20:59 Last Admin: 05/11/18 20:16 Dose: 100 mg Guaifenesin (Mucinex) 600 mg PO BID CALIXTO Stop: 11/07/18 20:59 Last Admin: 05/11/18 20:16 Dose: 600 mg Sodium Chloride (Ns) 1,000 mls @ 100 mls/hr IV CONT [place]TO Stop: 11/07/18 06:14 Last Admin: 05/11/18 10:17 Dose: 1,000 mls Spironolactone (Aldactone) 25 mg PO DAILY [place]IXTO Stop: 11/07/18 10:44 Last Admin: 05/11/18 13:28 Dose: 25 mg Trazodone HCl (Trazodone) 50 mg PO HS [place]IXTO Stop: 11/07/18 20:59 Last Admin: 05/11/18 20:16 Dose: 50 mg Discontinued Medications Sodium Chloride (Ns) 1,000 mls @ 0 mls/hr IV EDNOW ONE; Wide Open PRN Reason: Protocol Stop: 05/11/18 04:22 Last Admin: 05/11/18 04:53 Dose: 1,000 mls Testosterone Cypionate (Testosterone Im Syringe) 200 mg IM Q14D [place]IXTO Stop: 11/07/18 10:44 Last Admin: 05/11/18 13:28 Dose: Not Given Point of Care Test Results: Chemistry 05/11/18 05:14 POC Troponin I 0.00 ng/mL ng/mL (0.00-0.08) Departure - Departure Disposition: [facility] Inpatient Acute Clinical Impression: Syncope, Dehydration Condition: Fair
[2018-05-11 04:53] LABS: PLATELET COUNT 342 10^3/uL (150-400)
[2018-05-11 05:01] LABS: INR 1.28 (0.83-1.16); PROTIME(PATIENT) 16.2 SEC (12.0-15.0)
[2018-05-11] MEDS ORDERED: ONDANSETRON DISINTEGRATING 4 MG TAB PO PRN (06:13)
[2018-05-11] MEDS ORDERED: ONDANSETRON 4 MG/2 ML VIAL IVP PRN (06:13)
--- NOTE | 2018-05-11 06:37 | PDGENHP ---
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 The patient was getting up to go the bathroom when he experienced a syncopal episode. He called EMS for a lift assistance when he experienced a repeat episode. Both episodes were brief without chest pain, palpitations, or seizure-like activity. This occurred a few days ago as well. He was evaluated in the ED and sent home after an unremarkable work-up. Today, his work-up is again unremarkable. He appears dehydrated with dry mucous membranes. He is being admitted for observation. Case discussed with ED physician Dr. Calzada; records reviewed and summarized above. History Information - Allergies/Home Medication List Allergies/Adverse Reactions: No Known Allergies Allergy (Verified 05/11/18 04:25) Home Medications: Apixaban [Eliquis] BID 08/14/15 [Last Taken 04/11/18] Acetaminophen [Tylenol 325mg (*)] Q6 PRN 02/13/16 [Last Taken 04/12/18] Tamsulosin HCl [Flomax 0.4 MG (*)] 02/13/16 [Last Taken 04/13/18] traZODone [traZODONE 100MG (*)] HS 02/13/16 [Last Taken 04/12/18] Furosemide 03/07/18 [Last Taken 04/13/18] Gabapentin [Neurontin 100 MG (*)] HS 03/07/18 [Last Taken 04/08/18] Methylphenidate HCl [Ritalin 5mg (*)] 03/07/18 [Last Taken 04/13/18] DULoxetine 05/08/18 [Last Taken Unknown] FLUoxetine 05/08/18 [Last Taken Unknown] HYDROcodone BITARTRATE 05/08/18 [Last Taken Unknown] Spironolactone 05/08/18 [Last Taken Unknown] Zyrtec 05/08/18 [Last Taken Unknown] I have personally reviewed and updated: family history, medical history - Past Medical History COPD, DVT, pulmonary embolism - Surgical History Additional surgical history: 1st R toe partial amputation - Family History Positive for: cancer - Social History Smoking Status: Former smoker Review of Systems Review of Systems: ROS: 10pt was reviewed & negative except for what was stated in HPI & below Physical Exam Physical Exam: Temp Pulse Resp BP Pulse Ox 36.9 C 90 20 113/70 83 L 05/11/18 04:27 05/11/18 04:27 05/11/18 04:27 05/11/18 04:27 05/11/18 04:27 Constitutional: appears nourished, uncomfortable Eyes: PERRL, EOMI Ears, Nose, Mouth, Throat: no oral mucosal ulcers, dry mucous membranes Cardiovascular: regular rate and rhythym, no murmur, rub, or gallop Respiratory: no respiratory distress, clear to auscultation Gastrointestinal: normoactive bowel sounds, soft, non-tender abdomen Skin: warm, other (R foot s/p partial 1st toe amp; sutures in place) Musculoskeletal: no muscle tenderness, no joint effusions Neurologic: AAOx3, CN II-XII Intact Psychiatric: interacting appropriately, not anxious Lab Data & Imaging Review 05/11/18 04:41 05/11/18 04:41 WBC 6.01 10^3/uL (3.80-9.50) 05/11/18 04:41 RBC 3.82 10^6/uL (4.40-6.38) L 05/11/18 04:41 Hgb 11.5 g/dL (13.7-17.5) L 05/11/18 04:41 Hct 36.8 % (40.0-51.0) L 05/11/18 04:41 MCV 96.3 fL (81.5-99.8) 05/11/18 04:41 MCH 30.1 pg (27.9-34.1) 05/11/18 04:41 MCHC 31.3 g/dL (32.4-36.7) L 05/11/18 04:41 RDW 15.6 % (11.5-15.2) H 05/11/18 04:41 Plt Count 342 10^3/uL (150-400) 05/11/18 04:41 MPV 8.3 fL (8.7-11.7) L 05/11/18 04:41 Neut % (Auto) 55.4 % (39.3-74.2) 05/11/18 04:41 Lymph % (Auto) 26.3 % (15.0-45.0) 05/11/18 04:41 Phelps % (Auto) 10.1 % (4.5-13.0) 05/11/18 04:41 Eos % (Auto) 7.2 % (0.6-7.6) 05/11/18 04:41 Baso % (Auto) 0.7 % (0.3-1.7) 05/11/18 04:41 Nucleat RBC Rel Count 0.0 % (0.0-0.2) 05/11/18 04:41 Absolute Neuts (auto) 3.33 10^3/uL (1.70-6.50) 05/11/18 04:41 Absolute Lymphs (auto) 1.58 10^3/uL (1.00-3.00) 05/11/18 04:41 Absolute Monos (auto) 0.61 10^3/uL (0.30-0.80) 05/11/18 04:41 Absolute Eos (auto) 0.43 10^3/uL (0.03-0.40) H 05/11/18 04:41 Absolute Basos (auto) 0.04 10^3/uL (0.02-0.10) 05/11/18 04:41 Absolute Nucleated RBC 0.00 10^3/uL (0-0.01) 05/11/18 04:41 Immature Gran % 0.3 % (0.0-1.1) 05/11/18 04:41 Immature Gran # 0.02 10^3/uL (0.00-0.10) 05/11/18 04:41 PT 16.2 SEC (12.0-15.0) H 05/11/18 04:41 INR 1.28 (0.83-1.16) H 05/11/18 04:41 APTT 29.4 SEC (23.0-38.0) 05/11/18 04:41 Sodium 139 mEq/L (135-145) 05/11/18 04:41 Potassium 4.9 mEq/L (3.5-5.2) 05/11/18 04:41 Chloride 104 mEq/L (97-110) 05/11/18 04:41 Carbon Dioxide 25 mEq/l (22-31) 05/11/18 04:41 Anion Gap 10 mEq/L (6-14) 05/11/18 04:41 BUN 19 mg/dL (7-23) 05/11/18 04:41 Creatinine 1.2 mg/dL (0.7-1.3) 05/11/18 04:41 Estimated GFR 58 05/11/18 04:41 Glucose 92 mg/dL (70-100) 05/11/18 04:41 Calcium 10.6 mg/dL (8.5-10.4) H 05/11/18 04:41 Magnesium 2.1 mg/dL (1.6-2.3) 05/11/18 04:41 Total Bilirubin 0.4 mg/dL (0.1-1.4) 05/11/18 04:41 Conjugated Bilirubin 0.4 mg/dL (0.0-0.5) 05/11/18 04:41 Unconjugated Bilirubin 0.0 mg/dL (0.0-1.1) 05/11/18 04:41 AST 20 IU/L (17-59) 05/11/18 04:41 ALT 16 IU/L (21-72) L 05/11/18 04:41 Alkaline Phosphatase 107 IU/L (38-126) 05/11/18 04:41 POC Troponin I 0.00 ng/mL (0.00-0.08) 05/11/18 05:14 NT-Pro-B Natriuret Pep 219 pg/mL (0-450) 05/11/18 04:41 Total Protein 7.6 g/dL (6.3-8.2) 05/11/18 04:41 Albumin 4.0 g/dL (3.5-5.0) 05/11/18 04:41 Lipase 35 IU/L (23-300) 05/11/18 04:41 Visualized and Interpreted Chest x-ray results: Yes Chest X-Ray results: no infiltrate Visualized and Interpreted EKG results: Yes EKG Interpretation: Positive for: normal sinsus rhythm Assessment & Plan Assessment: 82 yo M w/ hx DVT/PE, COPD, PVD, BPH, and 1st R toe OM presents with syncope. Plan: 1. Syncope - Likely multifactorial from dehydration, ongoing diuretic use, alpha -chloe use, and deconditioning. The patient has suffered 3 events in the last few days and work up has been mostly unremarkable. - Admit for observation - Monitor on telemetry - Continue IVF, hold diuretics - PT/OT evaluations 2. COPD - On 4 L/min continuously; currently stable on the same. 3. 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 He is currently not displaying infectious signs of symptoms. Sutures remain in place. - Wound care consult 4. Hx DVT/PE - On Apixaban as outpatient. - Continue pending medicine reconciliation 5. BPH - I suspect tamsulosin is contributing to syncopal events but it seems he very much needs it. - Check PVR to rule out retention - Continue tamsulosin cautiously Diet - Regular, mIVF Code - Full Ppx - Apixaban Dispo - Admit under observation status
[2018-05-11] MEDS: NS 1,000 ML IV SCH (10:17)
[2018-05-11] MEDS ORDERED: ACETAMINOPHEN 325 MG TAB PO PRN (10:43)
[2018-05-11] MEDS ORDERED: ALBUTEROL 60 PUFFS/8 GM MDI IH PRN (10:43)
[2018-05-11] MEDS ORDERED: SODIUM CL NASAL 45 ML BTL NS PRN (10:43)
[2018-05-11] MEDS ORDERED: HYDROCORTISONE 2.5% 30 GM CRTUBE TP PRN (10:43)
[2018-05-11] MEDS ORDERED: TESTOSTERONE IM 100 MG/ML SYRINGE IM SCH (10:45)
--- NOTE | 2018-05-11 11:13 | WOCRNPDOC ---
JOHN Advanced Assessment Note - Skin Integrity Problem, Advanced Assess Right Foot Dressing Type: Adaptic Touch, Coban, Kerlix Dressing Description: Intact, Shadowed Closure Description: Not Approximated Exudate Amount: Moderate Exudate Color: Reddish/Yellow Exudate Characteristic(s): Serosanguinous Integumentary Issue Intervention: Dressing Changed Vicki Wound Tissue: Erythema, Swollen, Weeping, Crusted Vicki Wound Swelling: Moderate Wound Bed Color: Hiller, Red, Yellow Wound Bed Constitution: Granulation Tissue (20%), Red/Hiller - Non Granular Tissue (20%), Adhered Slough (60%) Site Odor: Moderate, Foul Site Measurement - Head-to-Toe Length X Width X Depth (cm): 8x2.2x0.9 Skin Integrity Problem Comment: Patient is followed by Dr. Berrios outpatient , and had been followed at outpatient wound clinic prior to right great toe amputation on 04/13/[address] Berrios. Patient has been receiving home care for wound, however report from home nurse indicates need for increased frequency of dressing changes due to amount of drainage. Home dressings included use of coban for compression from foot to below patient's knee, and patient has spandigrip on left leg. Wound bed cleaned with normal saline and patted dry with gauze. Dried exudate approximately 6x6cm in area removed from dorsum of foot. Blue sutures still visible in wound bed. Patient stated he has follow up appointment with Dr. Berrios next Tuesday. Wound care will follow.
[2018-05-11] MEDS: APIXABAN 5 MG TAB PO SCH ×2 (13:27→20:16)
[2018-05-11] MEDS: DULoxetine 60 MG CAP PO SCH (13:27)
[2018-05-11] MEDS: SPIRONOLACTONE 25 MG TAB PO SCH (13:28)
--- NOTE | 2018-05-11 13:42 | ASMTCMCOM ---
CM Note CM Note Notes: Patient admitted for syncope - states he's had three syncopal episodes recently. He is also c/o increased drainage from a toe amputation site (surgery was last month). Wound care will see. Patient lives independently. He is currently with [facility] for home RN and PT. We will resume this upon d/c unless his needs have changed. Case Management will follow. Date Signed: 05/11/2018 01:41 PM Electronically Signed By:Chelsy Collins RN
--- NOTE | 2018-05-11 15:27 | HOSPPROG ---
Hospitalist Progress Note Assessment/Plan: #Syncope - Likely multifactorial from dehydration -ongoing diuretic use - alpha-chloe use - deconditioning - has suffered 3 events in the last few days and work up has been mostly unremarkable. 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 - Continue home meds #BPH - I suspect tamsulosin is contributing to syncopal events but it seems he very much needs it. - Check PVR to rule out retention - Continue tamsulosin cautiously Diet - Regular, mIVF Code - Full Ppx - Apixaban Dispo - Admit under observation status Subjective: Feeling ok. Not sure what keeps happening. Objective: Vital Signs Temp Pulse Resp BP Pulse Ox 36.4 C 86 15 127/64 H 94 05/11/18 12:05 05/11/18 12:05 05/11/18 12:05 05/11/18 12:05 05/11/18 12:05 05/10/18 05/11/18 05/12/18 05:59 05:59 05:59 Intake Total 1000 Balance 1000 PT 16.2 SEC (12.0-15.0) H 05/11/18 04:41 INR 1.28 (0.83-1.16) H 05/11/18 04:41 - Physical Exam Constitutional: appears nourished, not in pain Eyes: PERRL Ears, Nose, Mouth, Throat: ears appear normal Cardiovascular: No JVD Respiratory: no respiratory distress Gastrointestinal: No tenderness Skin: normal color Musculoskeletal: generalized weakness Psychiatric: not anxious ICD10 Worksheet Patient Problems: Problems Problem Status Onset DVT (deep venous thrombosis) Acute Pulmonary emboli Acute MRSA (methicillin resistant Staphylococcus aureus) Acute 05/10/16 Dyspnea Acute Hypoxia Acute MRSA cellulitis Acute Pneumonia Acute Chronic Disease Mgmt/TransitionalCare Acute Upper GI bleed Acute Syncope Acute Dehydration Acute
[2018-05-11] MEDS: guaiFENesin 600 MG TAB.ER PO SCH (20:16)
[2018-05-11] MEDS: traZODone 50 MG TAB PO SCH (20:16)
[2018-05-11] MEDS: GABAPENTIN 100 MG CAP PO SCH (20:16)
[2018-05-12] MEDS: ACETAMINOPHEN 325 MG TAB PO PRN ×2 (00:45→05:42)
[2018-05-12] MEDS ORDERED: oxyCODONE IR 5 MG TAB PO ONE (06:33)
[2018-05-12] MEDS ORDERED: FUROSEMIDE 20 MG TAB PO SCH (09:00)
[2018-05-12] MEDS: CETIRIZINE 10 MG TAB PO SCH (09:23)
[2018-05-12] MEDS: DULoxetine 60 MG CAP PO SCH (09:23)
[2018-05-12] MEDS: TAMSULOSIN HCL 0.4 MG CAP PO SCH (09:24)
[2018-05-12] MEDS: APIXABAN 5 MG TAB PO SCH ×2 (09:24→21:37)
[2018-05-12] MEDS: guaiFENesin 600 MG TAB.ER PO SCH ×2 (09:24→21:37)
[2018-05-12] MEDS: SPIRONOLACTONE 25 MG TAB PO SCH (09:25)
[2018-05-12] MEDS: POLYETHYLENE GLYCOL 3350 17 GM PKT PO SCH (09:26)
--- NOTE | 2018-05-12 11:08 | ASMTCMCOM ---
CM Note CM Note Notes: Recieved call from pt's home health RN Mitchell ([facility]), she has concerns about pt. She states he does not participate in his care, not eating or keeping hydrated, and is depressed. His children work time checker, she thinks he should not come home right away. CM shared RN with , he has not yet rounded on pt. Pt is current with [facility] (RN/PT) DC Plan: TBD Date Signed: 05/12/2018 11:07 AM Electronically Signed By:Jennifer Anderson RN
--- NOTE | 2018-05-12 15:22 | HOSPPROG ---
Hospitalist Progress Note Assessment/Plan: # syncope - likely d/t infection - nothing on tele, dc # foot infection - appears recurrent; hx 1st toe OM s/p resection - zosyn per ID, may need further I&D - check BCx # COPD/chronic hypoxic resp failure - at baseline # recent submassive PE - eliquis # BPH - cont flomax Subjective: no change in his foot pain; he feels back to baseline Objective: Vital Signs Temp Pulse Resp BP Pulse Ox 36.8 C 95 14 112/61 95 05/12/18 12:00 05/12/18 14:22 05/12/18 14:22 05/12/18 12:00 05/12/18 14:22 05/11/18 05/12/18 05/13/18 05:59 05:59 05:59 Intake Total 1000 200 Output Total 500 350 Balance 500 -150 PT 16.2 SEC (12.0-15.0) H 05/11/18 04:41 INR 1.28 (0.83-1.16) H 05/11/18 04:41 chart reviewed discussed with Dr Gomez - Physical Exam Constitutional: no apparent distress, not in pain Cardiovascular: no murmur, rub, or gallop, tachycardia Respiratory: no respiratory distress, no rales or rhonchi, clear to auscultation Gastrointestinal: normoactive bowel sounds, soft, non-tender abdomen, no palpable masses Musculoskeletal: other (R foot with open wound with mild purulence, some surroundin erythema) ICD10 Worksheet Patient Problems: Problems Problem Status Onset DVT (deep venous thrombosis) Acute Pulmonary emboli Acute MRSA (methicillin resistant Staphylococcus aureus) Acute 05/10/16 Dyspnea Acute Hypoxia Acute MRSA cellulitis Acute Pneumonia Acute Chronic Disease [facility]/TransitionalCare Acute Upper GI bleed Acute Syncope Acute Dehydration Acute
--- NOTE | 2018-05-12 15:22 | PCMIDPN ---
Assessment/Plan: # Wound infection/cellulitis of the right foot with associated leukocytosis. Right foot Surgical wound appears to be dehisced with necrotic material in the base. Last cultures showed Serratia and Proteus. Remote history of MRSA 1 year ago but not recently isolated. In February 2018 and patient was treated for osteomyelitis with 6 weeks of IV vancomycin directed at Staphylococcus Simulans and Finegoldia. 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 Patient was admitted for multiple episodes of syncope from home, unclear etiology. Id is asked to evaluate right lower extremity. Patient does admit that his foot looks more red than previously, he is unable to evaluate the underside. He denies any pain associated with the foot but he has a chronic neuropathy. Denies associated fever. Patient has current active chills and is wrapped up in multiple blankets. No abdominal pain or diarrhea. Multiple times he states that he does not want to go back to a residential facility. Objective: Vital Signs Temp Pulse Resp BP Pulse Ox 36.8 C 95 14 112/61 95 05/12/18 12:00 05/12/18 14:22 05/12/18 14:22 05/12/18 12:00 05/12/18 14:22 05/11/18 05/12/18 05/13/18 05:59 05:59 05:59 Intake Total 1000 200 Output Total 500 350 Balance 500 -150 Laboratory Tests 05/12/18 15:30 WBC 14.89 H Hct 37.2 L Plt Count 344 Microbiology 04/13/18 10:11 Foot - Tissue Anaerobic Culture - Final Proteus Mirabilis Serratia Marcescens 03/13/18 19:49 Foot - Eswab Anaerobic Culture - Final Staphylococcus Simulans Finegoldia Magna - Physical Exam General Appearance: alert, no apparent distress, obese EENT: pale conjunctiva Respiratory: lungs clear, No accessory muscle use Cardiac/Chest: tachycardia Extremities: pedal edema ([place] pedal edema right greater than left), inflammation (Hyperpigmentation and pinkness in a stocking distribution on the right lower leg that appears mostly chronic in nature), erythema (Erythema on the distal portion of residual right foot with significant sloughing of the skin and warmth, sole of the foot shows a dehisced incision over the 1st metatarsal with marked necrotic material in the base) Abdomen: non-tender, soft Male Genitalia: No schrader Neuro/Psych: alert, normal mood/affect, oriented x 3 - Time Spent With Patient Time Spent with Patient: greater than 35 minutes Time Spent with Patient: Greater than 35 minutes spent on this patients care, greater than 50% of time spent counseling, educating, and coordinating care regarding the above mentioned plan. ICD10 Worksheet Patient Problems: Problems Problem Status Onset Dehydration Acute Syncope Acute Chronic Disease Mgmt/TransitionalCare Acute DVT (deep venous thrombosis) Acute Dyspnea Acute Hypoxia Acute MRSA (methicillin resistant Staphylococcus aureus) Acute 05/10/16 MRSA cellulitis Acute Pneumonia Acute Pulmonary emboli Acute Upper GI bleed Acute
[2018-05-12 15:51] LABS: PLATELET COUNT 344 10^3/uL (150-400)
[2018-05-12] MEDS ORDERED: PIPERACILLIN/TAZO 3.375 GM/DEX 50 ML IV SCH (16:00)
[2018-05-12] MEDS: traZODone 50 MG TAB PO SCH (21:37)
[2018-05-12] MEDS: PIPERACILLIN/TAZO 3.375 GM/DEX 50 ML IV SCH (21:37)
[2018-05-12] MEDS: GABAPENTIN 100 MG CAP PO SCH (21:37)
--- NOTE | 2018-05-12 21:57 | CPEKG ---
Test Reason : OPEN Blood Pressure : / mmHG Vent. Rate : 084 BPM Atrial Rate : 084 BPM P-R Int : 191 ms QRS Dur : 096 ms QT Int : 376 ms P-R-T Axes : 000 -36 048 degrees QTc Int : 445 ms Sinus rhythm Left axis deviation Low voltage, precordial leads Confirmed by Davey Tay ([id number]) on 05/12/2018 9:56:56 PM Referred By: Confirmed By:Davey Tay
[2018-05-12] MEDS: NS 1,000 ML IV SCH (23:34)
[2018-05-13] MEDS: PIPERACILLIN/TAZO 3.375 GM/DEX 50 ML IV SCH ×4 (04:06→21:51)
[2018-05-13] MEDS: DULoxetine 60 MG CAP PO SCH (09:58)
[2018-05-13] MEDS: APIXABAN 5 MG TAB PO SCH (09:58)
[2018-05-13] MEDS: guaiFENesin 600 MG TAB.ER PO SCH ×2 (09:58→21:53)
[2018-05-13] MEDS: POLYETHYLENE GLYCOL 3350 17 GM PKT PO SCH ×2 (09:58→10:14)
[2018-05-13] MEDS: TAMSULOSIN HCL 0.4 MG CAP PO SCH (09:58)
[2018-05-13] MEDS: CETIRIZINE 10 MG TAB PO SCH (09:58)
--- NOTE | 2018-05-13 11:21 | PDMN ---
Medical Necessity Medical necessity: Change to inpt as of 05/12/18 @ 15:58 per MD order [place] [facility] [place] Cellulitis, A-2days. 82 y/o admitted w/syncope, likely d/t infection, R osteomyelitis of 1st metatarsal s/p mult debridements(last 04/13/18) and in Feb 2018 was treated w/6 wks IV ABX's. ID consult: surg wound appears dehisced w/ necrotic material in base, will likely need further debridement, IV ABX's, upgraded to inpt for further eval/management, anticipate>2MN. Comrbidities include COPD- on 4 LO2 at baseline, hx DVT/PE.
--- NOTE | 2018-05-13 11:30 | SOAPPROG ---
SOAP Progress Note Assessment/Plan: Assessment:ulcer and cellulits right first ray status post partial 1st ray amputation. Plan:Treatment consisted of evaluation of the site. I agree with Dr. Gomez in that further debridement is necessary. I will order an MRI first. 05/13/18 11:27 Subjective: Patient is seen at bedside with his brother and sister in law present. He denies any pain. Objective: Vital Signs Temp Pulse Resp BP Pulse Ox 36.8 C 82 14 100/49 L 90 L 05/13/18 07:58 05/13/18 07:58 05/13/18 07:58 05/13/18 07:58 05/13/18 07:58 05/12/18 05/13/18 05/14/18 05:59 05:59 05:59 Intake Total 1450 Output Total 1250 100 Balance 200 -100 PT 16.2 SEC (12.0-15.0) H 05/11/18 04:41 INR 1.28 (0.83-1.16) H 05/11/18 04:41 Edema in both lower legs is under much better control than usual. There is erythema around the previous surgical site without ascending cellulitis. There is minimal purulent drainage from the distal portion of his incision where his drain had been ripped out previously. There is necrotic tissue present. The plantar portion of the incision is open at the far proximal end and then healed between the proximal and distal sites. Patient is completely neuropathic. Pulses are palpable. No lymphadenopathy or lymphangiitis is noted. ICD10 Worksheet Patient Problems: Problems Problem Status Onset Dehydration Acute Syncope Acute Chronic Disease [facility]/TransitionalCare Acute DVT (deep venous thrombosis) Acute Dyspnea Acute Hypoxia Acute MRSA (methicillin resistant Staphylococcus aureus) Acute 05/10/16 MRSA cellulitis Acute Pneumonia Acute Pulmonary emboli Acute Upper GI bleed Acute
--- NOTE | 2018-05-13 12:24 | PCMIDPN ---
Assessment/Plan: # Wound infection/cellulitis of the right foot with associated leukocytosis. Right foot Surgical wound appears to be dehisced with necrotic material in the base. --IV Zosyn directed at Serratia and Proteus as well as Streptococcus --contact precautions for history of MRSA --recheck CBC in a.m. --case reviewed with Podiatry, plan MRI and likely surgical debridement on Tuesday Microbiology 05/12/2018 blood cultures (2) NGTD 04/13/18 10:11 Foot - Tissue Proteus Mirabilis; Serratia Marcescens (path showed clean margins on the bone) 03/13/18 19:49 Foot - Eswab Staphylococcus Simulans Finegoldia Magna (path showed positive margins) Medications Zosyn 3.375 g IV Q 6, # 1 Subjective: Patient reports no new complaints. His brother and [id number] are present in the room Objective: Vital Signs Temp Pulse Resp BP Pulse Ox 36.9 C 78 14 95/55 L 94 05/13/18 11:55 05/13/18 11:55 05/13/18 11:55 05/13/18 11:55 05/13/18 11:55 05/12/18 05/13/18 05/14/18 05:59 05:59 05:59 Intake Total 1450 Output Total 1250 100 Balance 200 -100 - Physical Exam General Appearance: alert, no apparent distress, obese Respiratory: lungs clear Cardiac/Chest: regular rate, rhythm Extremities: pedal edema, other (Dressing in place right lower extremity that was just removed 20 min prior to my exam by Podiatry therefore did not remove again) Abdomen: normal bowel sounds, non-tender, soft Skin: pallor Neuro/Psych: alert, normal mood/affect, oriented x 3 - Time Spent With Patient Time Spent with Patient: greater than 35 minutes Time Spent with Patient: Greater than 35 minutes spent on this patients care, greater than 50% of time spent counseling, educating, and coordinating care regarding the above mentioned plan. ICD10 Worksheet Patient Problems: Problems Problem Status Onset Dehydration Acute Syncope Acute Chronic Disease Mgmt/TransitionalCare Acute DVT (deep venous thrombosis) Acute Dyspnea Acute Hypoxia Acute MRSA (methicillin resistant Staphylococcus aureus) Acute 05/10/16 MRSA cellulitis Acute Pneumonia Acute Pulmonary emboli Acute Upper GI bleed Acute
--- NOTE | 2018-05-13 14:13 | HOSPPROG ---
Hospitalist Progress Note Assessment/Plan: # syncope - likely d/t infection - nothing on tele, dc # foot infection - appears recurrent; hx 1st toe OM s/p resection - cont zosyn; plan for I&D by Dr Berrios - checking MRI - BCx pending # mild hypotension - will cont IVF # COPD/chronic hypoxic resp failure - at baseline # hx PE - confirmed this was not recent - will hold eliquis with I&D planned # BPH - cont flomax Subjective: feels very weak; resistant to working with PT; Objective: Vital Signs Temp Pulse Resp BP Pulse Ox 36.9 C 78 14 95/55 L 94 05/13/18 11:55 05/13/18 11:55 05/13/18 11:55 05/13/18 11:55 05/13/18 11:55 05/12/18 05/13/18 05/14/18 05:59 05:59 05:59 Intake Total 1450 Output Total 1250 100 Balance 200 -100 PT 16.2 SEC (12.0-15.0) H 05/11/18 04:41 INR 1.28 (0.83-1.16) H 05/11/18 04:41 - Physical Exam Constitutional: uncomfortable Cardiovascular: regular rate and rhythym, no murmur, rub, or gallop Respiratory: no respiratory distress, no rales or rhonchi, clear to auscultation Gastrointestinal: normoactive bowel sounds, soft, non-tender abdomen, no palpable masses ICD10 Worksheet Patient Problems: Problems Problem Status Onset DVT (deep venous thrombosis) Acute Pulmonary emboli Acute MRSA (methicillin resistant Staphylococcus aureus) Acute 05/10/16 Dyspnea Acute Hypoxia Acute MRSA cellulitis Acute Pneumonia Acute Chronic Disease [facility]/TransitionalCare Acute Upper GI bleed Acute Syncope Acute Dehydration Acute
[2018-05-13] MEDS ORDERED: GADOBUTROL 10 ML VIAL IVP ONE (14:32)
[2018-05-13] MEDS ORDERED: oxyCODONE IR 5 MG TAB PO PRN (16:53)
[2018-05-13] MEDS ORDERED: HYDROmorphONE/DILAUDID 1 MG/ML INJ IVP PRN (16:53)
[2018-05-13] MEDS: HYDROCODONE/APAP 5/325 TAB PO PRN ×2 (17:12→21:52)
[2018-05-13] MEDS: GABAPENTIN 100 MG CAP PO SCH (21:51)
[2018-05-13] MEDS: traZODone 50 MG TAB PO SCH (21:52)
[2018-05-14] MEDS: NS 1,000 ML IV SCH (04:02)
[2018-05-14] MEDS: PIPERACILLIN/TAZO 3.375 GM/DEX 50 ML IV SCH ×4 (04:02→22:04)
[2018-05-14 05:15] LABS: PLATELET COUNT 269 10^3/uL (150-400)
[2018-05-14] MEDS: TAMSULOSIN HCL 0.4 MG CAP PO SCH (08:43)
[2018-05-14] MEDS: CETIRIZINE 10 MG TAB PO SCH (08:44)
[2018-05-14] MEDS: POLYETHYLENE GLYCOL 3350 17 GM PKT PO SCH (08:45)
[2018-05-14] MEDS: DULoxetine 60 MG CAP PO SCH (08:45)
[2018-05-14] MEDS: guaiFENesin 600 MG TAB.ER PO SCH ×2 (09:02→20:47)
[2018-05-14] MEDS: ACETAMINOPHEN 325 MG TAB PO PRN (09:02)
--- NOTE | 2018-05-14 10:49 | SOAPPROG ---
SOAP Progress Note Assessment/Plan: Assessment:ulcer and cellulits right first ray status post partial 1st ray amputation. Plan:Treatment consisted of evaluation of the MRI. Explained that further surgery is needed. I & D will be performed tomorrow. All questions were answered. 05/13/18 11:27 05/14/18 10:48 Subjective: spoke with patient regarding the MRI results. He denied any other issues. Objective: Vital Signs Temp Pulse Resp BP Pulse Ox 36.5 C 86 16 102/66 94 05/14/18 07:03 05/14/18 07:03 05/14/18 07:03 05/14/18 07:03 05/14/18 07:03 Laboratory Results 05/14/18 04:42 05/14/18 04:42 05/13/18 05/14/18 05/15/18 05:59 05:59 05:59 Intake Total 1450 1834 Output Total 1250 975 150 Balance 200 859 -150 PT 16.2 SEC (12.0-15.0) H 05/11/18 04:41 INR 1.28 (0.83-1.16) H 05/11/18 04:41 dressing not removed, so foot is not evaluated today ICD10 Worksheet Patient Problems: Problems Problem Status Onset Dehydration Acute Syncope Acute Chronic Disease Mgmt/TransitionalCare Acute DVT (deep venous thrombosis) Acute Dyspnea Acute Hypoxia Acute MRSA (methicillin resistant Staphylococcus aureus) Acute 05/10/16 MRSA cellulitis Acute Pneumonia Acute Pulmonary emboli Acute Upper GI bleed Acute
--- NOTE | 2018-05-14 11:45 | PCMIDPN ---
Assessment/Plan: # Wound infection/cellulitis of the right foot with associated leukocytosis. MRI of R foot reviewed. Cellulitis much improved today --IV Zosyn directed at Serratia and Proteus as well as Streptococcus --contact precautions for history of MRSA --surgery tomorrow, cx will be taken Microbiology 05/12/2018 blood cultures (2) NGTD 04/13/18 10:11 Foot - Tissue Proteus Mirabilis; Serratia Marcescens (path showed clean margins on the bone) 03/13/18 19:49 Foot - Eswab Staphylococcus Simulans Finegoldia Magna (path showed positive margins) Medications Zosyn 3.375 g IV Q 6, # 2 Subjective: Patient slept well last night therefore he is very happy, no additional complaints Objective: Vital Signs Temp Pulse Resp BP Pulse Ox 36.5 C 86 16 102/66 94 05/14/18 07:03 05/14/18 07:03 05/14/18 07:03 05/14/18 07:03 05/14/18 07:03 Laboratory Results 05/14/18 04:42 05/14/18 04:42 05/13/18 05/14/18 05/15/18 05:59 05:59 05:59 Intake Total 1450 1834 Output Total 1250 975 150 Balance 200 859 -150 General: In nontoxic, cheerful HEENT: Conjunctiva pallor, no jaundice Cardiovascular regular rate no murmur Chest: Barrel chested, decreased breath sounds throughout Abdomen: Obese soft nontender Right lower extremity: 1st through 4th trans met amputation, foot with greater than 50% improvement compared to my last exam with less intense edema, wound with reduction in necrotic material in discharge. No erythema on lower leg. PIV right hand C/D/I - Time Spent With Patient Time Spent with Patient: greater than 35 minutes (Care coordinated with Podiatry , hospitalists and nursing) Time Spent with Patient: Greater than 35 minutes spent on this patients care, greater than 50% of time spent counseling, educating, and coordinating care regarding the above mentioned plan. ICD10 Worksheet Patient Problems: Problems Problem Status Onset Dehydration Acute Syncope Acute Chronic Disease Mgmt/TransitionalCare Acute DVT (deep venous thrombosis) Acute Dyspnea Acute Hypoxia Acute MRSA (methicillin resistant Staphylococcus aureus) Acute 05/10/16 MRSA cellulitis Acute Pneumonia Acute Pulmonary emboli Acute Upper GI bleed Acute
--- NOTE | 2018-05-14 14:24 | HOSPPROG ---
Hospitalist Progress Note Assessment/Plan: # syncope - likely d/t infection - nothing on tele, dc # foot infection - appears recurrent; hx 1st toe OM s/p resection - I&D tomorrow with Dr Berrios - MRI with likely abscess, dorsal cellulitis - cont zosyn per ID targeting serratia and proteus from 04/13 # mild hypotension - better; stop IVF, do not restart diuretics now # COPD/chronic hypoxic resp failure - at baseline # hx PE - confirmed this was not recent - will hold eliquis with I&D planned # urinary retention/overflow incontinence - 250-300cc on PVR - would not place schrader at this point - ?BPH but unclear, will cont flomax for now - needs urology eval as outpatient Subjective: still c/o incontinence; PVRs todat with 250-300cc Objective: Vital Signs Temp Pulse Resp BP Pulse Ox 36.5 C 86 16 102/66 94 05/14/18 07:03 05/14/18 07:03 05/14/18 07:03 05/14/18 07:03 05/14/18 07:03 Laboratory Results 05/14/18 04:42 05/14/18 04:42 05/13/18 05/14/18 05/15/18 05:59 05:59 05:59 Intake Total 1450 1834 Output Total 1250 975 300 Balance 200 859 -300 PT 16.2 SEC (12.0-15.0) H 05/11/18 04:41 INR 1.28 (0.83-1.16) H 05/11/18 04:41 - Physical Exam Constitutional: no apparent distress, appears nourished, obese Cardiovascular: regular rate and rhythym, no murmur, rub, or gallop Respiratory: no respiratory distress, no rales or rhonchi, clear to auscultation Gastrointestinal: normoactive bowel sounds, soft, non-tender abdomen, no palpable masses Musculoskeletal: other (R foot in bandage) ICD10 Worksheet Patient Problems: Problems Problem Status Onset DVT (deep venous thrombosis) Acute Pulmonary emboli Acute MRSA (methicillin resistant Staphylococcus aureus) Acute 05/10/16 Dyspnea Acute Hypoxia Acute MRSA cellulitis Acute Pneumonia Acute Chronic Disease Mgmt/TransitionalCare Acute Upper GI bleed Acute Syncope Acute Dehydration Acute
[2018-05-14] MEDS: GABAPENTIN 100 MG CAP PO SCH (20:47)
[2018-05-14] MEDS: traZODone 50 MG TAB PO SCH ×2 (20:48→22:03)
[2018-05-14] MEDS: HYDROCODONE/APAP 5/325 TAB PO PRN (22:03)
[2018-05-15] MEDS: PIPERACILLIN/TAZO 3.375 GM/DEX 50 ML IV SCH ×4 (04:30→21:42)
[2018-05-15] MEDS: ACETAMINOPHEN 325 MG TAB PO PRN ×2 (08:41→20:02)
[2018-05-15] MEDS: DULoxetine 60 MG CAP PO SCH (08:41)
[2018-05-15] MEDS: CETIRIZINE 10 MG TAB PO SCH (08:42)
[2018-05-15] MEDS: TAMSULOSIN HCL 0.4 MG CAP PO SCH (08:42)
[2018-05-15] MEDS: guaiFENesin 600 MG TAB.ER PO SCH ×2 (08:42→20:03)
[2018-05-15] MEDS: POLYETHYLENE GLYCOL 3350 17 GM PKT PO SCH (08:48)
[2018-05-15] MEDS ORDERED: NS 250 ML IV ONE (09:03)
--- NOTE | 2018-05-15 10:55 | ASMTCMCOM ---
CM Note CM Note Notes: Pts case discussed w/ HUBERT Rojas. CM met w/ pt for dispo planning. Therapies are both recommending SNF. Pt reports that he has been to [facility] in the past. Pt is agreeable to referral being sent to [facility]. Referral sent. Pt is skeptical about going to SNF. Pt is afraid that the SNF will keep him there too long. CM to follow. Plan: TBD Date Signed: 05/15/2018 10:54 AM Electronically Signed By:GIBRAN Stevens
[2018-05-15] MEDS ORDERED: NS 1,000 ML IV ONE (13:05)
[2018-05-15] MEDS ORDERED: LIDOCAINE 1% 2 ML INJ ID PRN (13:05)
[2018-05-15] MEDS ORDERED: LR 1,000 ML IV ONE (13:08)
--- NOTE | 2018-05-15 13:22 | HOSPPROG ---
Hospitalist Progress Note Assessment/Plan: 82 yo M w/ hx DVT/PE, COPD, PVD, BPH, and 1st R toe OM presents with syncope. First encounter, chart reviewed. # syncope - likely d/t infection - nothing on tele, dc # foot infection - appears recurrent; hx 1st toe OM s/p resection - I&D today with Dr Berrios - MRI with likely abscess, dorsal cellulitis - cont Zosyn per ID targeting serratia and proteus from 04/13 # hypotension -gave fluid bolus this a.m. -hold diuretics till more consistently stable # COPD/chronic hypoxic resp failure - at baseline # hx PE - confirmed this was not recent - will hold eliquis with I&D planned # urinary retention/overflow incontinence - 250-300cc on PVR - would not place schrader at this point - ?BPH but unclear, will cont flomax for now - needs urology eval as outpatient #plan: will resume regular diet and eliquis in the morning if ok w Surgery Subjective: Chester has no complaints, but is cold. Objective: Vital Signs Temp Pulse Resp BP Pulse Ox 37.2 C 73 16 88/51 L 91 L 05/15/18 08:00 05/15/18 08:00 05/15/18 08:00 05/15/18 08:00 05/15/18 08:00 Laboratory Results 05/14/18 04:42 05/14/18 04:42 05/14/18 05/15/18 05/16/18 05:59 05:59 05:59 Intake Total 1834 800 Output Total 975 1150 Balance 859 -350 PT 16.2 SEC (12.0-15.0) H 05/11/18 04:41 INR 1.28 (0.83-1.16) H 05/11/18 04:41 - Physical Exam Constitutional: appears nourished, not in pain, chronically ill appearing Eyes: PERRL Ears, Nose, Mouth, Throat: hearing normal Cardiovascular: regular rate and rhythym Respiratory: no respiratory distress Skin: warm, other (right lower ext in dressing) Neurologic: AAOx3 Psychiatric: interacting appropriately ICD10 Worksheet Patient Problems: Problems Problem Status Onset Dehydration Acute Syncope Acute Chronic Disease Mgmt/TransitionalCare Acute DVT (deep venous thrombosis) Acute Dyspnea Acute Hypoxia Acute MRSA (methicillin resistant Staphylococcus aureus) Acute 05/10/16 MRSA cellulitis Acute Pneumonia Acute Pulmonary emboli Acute Upper GI bleed Acute
[2018-05-15] MEDS ORDERED: EPINEPHrine 1 MG/ML INJ ONE (13:31)
[2018-05-15] MEDS ORDERED: BUPIVACAINE 0.25% 30 ML SDV ONE (13:31)
[2018-05-15] MEDS ORDERED: BACITRACIN 50,000 UNITS/10 ML SYR IRR ONE (13:31)
--- NOTE | 2018-05-15 13:46 | PDANEPAE ---
ANE History of Present Illness non-healing foot wound here for debridement ANE Past Medical History - Cardiovascular History Hx Hypertension: Yes Hx Arrhythmias: No Hx Chest Pain: No Hx Coronary Artery / Peripheral Vascular Disease: No Hx CHF / Valvular Disease: Yes Hx Palpitations: No Cardiovascular History Comment: htn. hypercholesterolemia. hx of DVT's. CHF. Well controlled CHF. Patient staes he really had Right heart failure after PE. Denies any history of left heart failure. - Pulmonary History Hx COPD: Yes Hx Asthma/Reactive Airway Disease: No Hx Recent Upper Respiratory Infection: No Hx Oxygen in Use at Home: Yes O2 in Use at Home (L/minute): 4 Hx Sleep Apnea: Yes Sleep Apnea Screening Result - Last Documented: Positive Pulmonary History Comment: central and obstructive apnea uses o2. hx of PE's x3. pulmonary htn but only when he had a PE. On 4l at home but his room air sat is 87%. - Neurologic History Hx Cerebrovascular Accident: No Hx Seizures: No Hx Dementia: No Neurologic History Comment: peripheral neuropathy - Endocrine History Hx Diabetes: No - Renal History Hx Renal Disorders: Yes Renal History Comment: BPH - Liver History Hx Hepatic Disorders: No - Neurological & Psychiatric Hx Hx Neurological and Psychiatric Disorders: Yes Neurological / Psychiatric History Comment: depression. anxiety. hx of acoholism - Cancer History Hx Cancer: No - Congenital Disorder History Hx Congenital Disorders: No - GI History Hx Gastrointestinal Disorders: Yes Gastrointestinal History Comment: diverticulitis. occ reflux. IBS - Other Health History Other Health History: hx of venous stasis ulcers. osteomyelitis of Right foot. RLE cellulitis- being followed by ID - Chronic Pain History Chronic Pain: Yes (chronic low back pain) - Surgical History Prior Surgeries: 03/13/18 I&D with [facility] of Right foot. 06/09/16 Left foot I&D with [facility]. 10/08/16 left partial resection of 5th metatarsal head with [facility]. 10/07/15 right great toe partial amputation left foot skin graft with [facility]. 03/17/15 left 3rd toe amputation with [facility] 03/08/14 ottoniel edwards with [facility]. DEVIATED SEPTUM REPAIR. bilateral RTC repairs. TOE AMPUTATION X4 TOES. FOOT SURG X2 BUNION & HAMMER TOE. HIP REPLACEMENT R 2000. HERNIA REPAIRS ING & UMBILICAL ANE Review of Systems Review of Systems: - Exercise capacity METS (RN): 4 METS ANE Patient History - Allergies Allergies/Adverse Reactions: No Known Allergies Allergy (Verified 05/11/18 04:25) - Home Medications Home Medications: Apixaban [Eliquis] 5 mg PO BID 08/14/15 [Last Taken 05/10/18 21:00] Tamsulosin HCl [Flomax 0.4 MG (*)] 0.4 mg PO DAILY 02/13/16 [Last Taken 05/10/18 ] Methylphenidate HCl [Ritalin 5mg (*)] 5 mg PO DAILY 03/07/18 [Last Taken ] Cetirizine [ZyrTEC 10 mg (*)] 10 mg PO DAILY 05/08/18 [Last Taken 05/10/18] DULoxetine [Cymbalta 60 MG (*)] 60 mg PO DAILY 05/08/18 [Last Taken 05/10/18] Spironolactone [Aldactone 25 MG (*)] 25 mg PO DAILY 05/08/18 [Last Taken ] Acetaminophen [Tylenol 325mg (*)] 325 mg PO Q6HRS PRN 05/11/18 [Last Taken Unknown] Albuterol [Proventil Inhaler HFA (*)] 1 - 2 puffs IH Q4H PRN 05/11/18 [Last Taken Unknown] Furosemide [Lasix 20 MG (*)] 20 mg PO DAILY 05/11/18 [Last Taken 05/10/18] Gabapentin [Neurontin 100 MG (*)] 100 mg PO HS 05/11/18 [Last Taken 05/10/18] Hydrocortisone 2.5% [Hydrocortisone 2.5% cream (*)] 1 stefanie TP BID PRN 05/11/18 [ Last Taken Unknown] Polyethylene Glycol 3350 [Miralax 17 gm (*)] 17 gm PO DAILY 05/11/18 [Last Taken 05/10/18] Sodium Cl Nasal [[place] (*)] 1 spray NS DAILY PRN 05/11/18 [Last Taken Unknown] Testosterone IM [Testosterone 100mg/ml IM inj (*)] 200 mg IM Q14D 05/11/18 [ Last Taken 05/09/18] guaiFENesin [Mucinex 600 MG (*)] 600 mg PO BID 05/11/18 [Last Taken 05/10/18 21: 00] traZODone [traZODONE 50MG (*)] 50 mg PO HS 05/11/18 [Last Taken 05/10/18] - NPO status NPO Status: no food or drink >8 hours NPO Since - Liquids (Date): 05/15/18 NPO Since - Liquids (Time): 00:00 NPO Since - Solids (Date): 05/15/18 NPO Since - Solids (Time): 00:00 - Smoking Hx Smoking Status: Former smoker - Alcohol Use Alcohol Use: Occasionally - Family Anes Hx Family Anes Hx: none Family Hx Anesthesia Complications: none ANE Labs/Vital Signs - Labs Result Diagrams: 05/14/18 04:42 05/14/18 04:42 - Vital Signs Blood Pressure: 88/51 Heart Rate: 73 Respiratory Rate: 16 O2 Sat (%): 91 Height: 172.72 cm Weight: 97.522 kg ANE Physical Exam - Airway Neck exam: FROM Mallampati Score: Class 2 Mouth exam: normal dental/mouth exam - Pulmonary Pulmonary: no respiratory distress, clear to auscultation - Cardiovascular Cardiovascular: regular rate and rhythym, no murmur, rub, or gallop - ASA Status ASA Status: III ANE Anesthesia Plan Anesthesia Plan: GA with mask Total IV Anesthesia: Yes
[2018-05-15] MEDS ORDERED: PROPOFOL/EMULSION 500 MG/50 ML BOTTLE IV ONE (13:52)
[2018-05-15] MEDS ORDERED: PROPOFOL 200 MG/20 ML VIAL ONE (15:13)
--- NOTE | 2018-05-15 15:21 | PCMIDPN ---
Assessment/Plan: Assessment: Right foot abscess-to the OR later today. In the meantime he is being covered with Zosyn empirically given both Proteus and Serratia isolated from previous tissue culture in March. Plan: 1. Continue Zosyn empirically. 2. Follow up on operative results and culture data. 05/15/18 15:15 Subjective: Patient is in good spirits. He is sitting in a chair in his hospital room and does not have any particular complaint this morning. Long talk about end of life wishes as well as family matters. No fevers overnight. Objective: Zosyn # 3 Vital Signs Temp Pulse Resp BP Pulse Ox 35.9 C L 73 16 88/51 L 91 L 05/15/18 13:29 05/15/18 13:46 05/15/18 13:46 05/15/18 13:46 05/15/18 13:46 Laboratory Results 05/14/18 04:42 05/14/18 04:42 05/14/18 05/15/18 05/16/18 05:59 05:59 05:59 Intake Total 1834 800 Output Total 975 1150 Balance 859 -350 - Physical Exam General Appearance: WD/WN, alert, no apparent distress, non-toxic Respiratory: lungs clear, normal breath sounds, No respiratory distress Cardiac/Chest: regular rate, rhythm, No tachycardia Extremities: non-tender, No normal inspection (Right lower extremity with compression wrap. No proximal erythema.) Skin: normal color, warm/dry, No rash Neuro/Psych: alert, normal mood/affect, oriented x 3 ICD10 Worksheet Patient Problems: Problems Problem Status Onset Dehydration Acute Syncope Acute Chronic Disease Mgmt/TransitionalCare Acute DVT (deep venous thrombosis) Acute Dyspnea Acute Hypoxia Acute MRSA (methicillin resistant Staphylococcus aureus) Acute 05/10/16 MRSA cellulitis Acute Pneumonia Acute Pulmonary emboli Acute Upper GI bleed Acute
[2018-05-15] MEDS ORDERED: ONDANSETRON 4 MG/2 ML VIAL IVP PRN (15:27)
[2018-05-15] MEDS ORDERED: HYDROCODONE/APAP 5/325 TAB PO PRN (15:27)
[2018-05-15] MEDS ORDERED: fentaNYL 100 MCG/2 ML INJ IVP PRN (15:27)
[2018-05-15] MEDS ORDERED: oxyCODONE IR 5 MG TAB PO PRN (15:27)
[2018-05-15] MEDS ORDERED: ACETAMINOPHEN 500 MG TAB PO PRN (15:27)
[2018-05-15] MEDS ORDERED: NALOXONE HCL 0.4 MG/ML INJ IVP PRN (15:27)
--- NOTE | 2018-05-15 15:38 | POSTOPPROG ---
Post Op Note Date of Operation: 05/15/18 Surgeon: Siddharth Berrios Superintendent Nonselling: none Anesthesiologist: Diya Anesthesia: IV Sedation Pre-op Diagnosis: abscess right foot Post-op Diagnosis: ulcer with necrotic tissue right foot Indication: ulcer right foot Procedure: I & D with primary closure right foot Findings: no purulent drainage Inf/Abcess present in the surg proc area at time of surgery?: Yes Depth: Deep Incisional (Fascial) EBL: Minimal Total fluids administered: 20cc 9/1 .25% marcaine plain and with epi Complications: none Drains: Nelsy
--- NOTE | 2018-05-15 17:13 | POSTANESTH ---
Post Anesthetic Evaluation Cardiovascular Status: Normal, Stable, Similar to Pre-Op Cond Respiratory Status: Normal, Stable, Similar to Pre-op Cond. Level of Consciousness/Mental Status: Can Participate in Eval, Alert and Oriented Pain Control: Adequate, Prn Tx Ordered Nausea/Vomiting Control: Adequate, Prn Tx Ordered Complications Possibly Related to Anesthesia: None Noted
--- NOTE | 2018-05-15 19:47 | GOP ---
DATE OF OPERATION: 05/15/2018 SURGEON: Siddharth Berrios DPM COMPOSITION FLOOR SETTER: None. ANESTHESIA: Local with MAC. ANESTHESIOLOGIST: Dr. Dahl. PREOPERATIVE DIAGNOSIS: 1. Ulceration, right foot. 2. Abscess, right foot. POSTOPERATIVE DIAGNOSIS: 1. Ulceration, right foot. 2. Abscess, right foot. PROCEDURE PERFORMED: 1. Incision and drainage, right foot, with extensive debridement. 2. Primary closure, right foot. FINDINGS: SPECIMENS: Pathology, soft tissue specimen sent for culture and sensitivity. ESTIMATED BLOOD LOSS: Minimal. DESCRIPTION OF PROCEDURE: The patient was brought to the operating room at [facility], was cleared for the intended procedure. The patient was taken the operating room, placed on table i n supine position. IV sedation was started per the anesthesia department. Foot was anesthetized in an infiltrative nerve block fashion. Foot was prepped, scrubbed and draped in usual sterile fashion. At this time, the pneumatic ankle tourniquet was inflated to 250 mmHg without exsanguination. The tourniquet was inflated because at his previous surgery there had been some bleeding, but exsanguinat ion was not performed in order to prevent spread of potential infection. Upon completion of this, at tention was directed to the plantar distal aspect of the right foot where the obvious ulceration at t he distal end of the 1st metatarsal and plantarly under the same area were noted. At this time, it w as decided that an incision and drainage would be performed. The area had 2 converging semi-elliptic al incisions made through the area with the tissue dissected free and removed. Dissection was karolina d deep and initially healthy tissue was identified. The MRI previously reported sinus tract between the plantar ulcer to the abscess and out through the distal ulcer. No communication between the plan tar ulcer and abscess formation area were identified. Upon getting deep, there was no purulent drain age appreciable in the area. There was a considerable amount of necrotic tissue. It was this tissue that was dissected free and sent in for culture and sensitivity at this time. No bone was palpable at this point. Upon completion of this, the Versajet was utilized to remove any remaining necrotic t issue from the site. The area was then cleaned with 3 L of sterile saline and antibiotic rinse in a pulse lavage fashion. Upon completion of this, the tissue had a good healthy appearance to the site and the pneumatic ankle tourniquet was released for a total tourniquet time of 46 minutes. The remai sandeep tissue was perfusing adequately with no remaining necrotic tissue. It was decided that a primar y closure of the site would be performed. Deep tissue was closed with 2-0 Vicryl with skin closure w ith 2-0 nylon, with the exception of the very distal end of the incision, which was left open to mulu gan utilizing a Norman drain that had been placed into the site. Upon completion of this, the area wa s dressed Betadine-soaked Adaptics, 4x4s, Kerlix and Coban. The patient was taken to the recovery ro om, vital signs stable. HEMOSTASIS: PAT at 250 mmHg by 46 minutes. DRAINS: Norman drain. INJECTABLES: 20 cc 9:1 ratio 0.25% Marcaine plain, 0.25% Marcaine with epi, preoperatively. COMPLICATIONS: None. /[id number]/MODL
[2018-05-15] MEDS: GABAPENTIN 100 MG CAP PO SCH (20:03)
[2018-05-15] MEDS: traZODone 50 MG TAB PO SCH (20:03)
[2018-05-16] MEDS: PIPERACILLIN/TAZO 3.375 GM/DEX 50 ML IV SCH ×4 (04:22→21:44)
[2018-05-16] MEDS: POLYETHYLENE GLYCOL 3350 17 GM PKT PO SCH ×2 (09:11→09:19)
[2018-05-16] MEDS: CETIRIZINE 10 MG TAB PO SCH (09:11)
[2018-05-16] MEDS: DULoxetine 60 MG CAP PO SCH (09:11)
[2018-05-16] MEDS: TAMSULOSIN HCL 0.4 MG CAP PO SCH (09:11)
[2018-05-16] MEDS: guaiFENesin 600 MG TAB.ER PO SCH ×2 (09:11→20:01)
[2018-05-16] MEDS ORDERED: APIXABAN 5 MG TAB PO SCH (14:30)
--- NOTE | 2018-05-16 14:38 | HOSPPROG ---
Hospitalist Progress Note Assessment/Plan: 82 yo M w/ hx DVT/PE, COPD, PVD, BPH, and 1st R toe OM presents with syncope. First encounter, chart reviewed. # syncope - likely d/t infection - nothing on tele, dc # foot infection - appears recurrent; hx 1st toe OM s/p resection - s/p I&D w extensive debridement (05/15) with Dr Berrios - MRI with likely abscess, dorsal cellulitis - cont Zosyn per ID targeting serratia and proteus from 04/13 # hypotension -gave fluid bolus this a.m. -hold diuretics till more consistently stable # COPD/chronic hypoxic resp failure - at baseline # hx PE - confirmed this was not recent - resume Eliquis # urinary retention/overflow incontinence - 250-300cc on PVR - would not place schrader at this point - ?BPH but unclear, will cont flomax for now - needs urology eval as outpatient #plan: will resume Eliquis today Subjective: Chester has no significant pain in his foot, overall feels fine, anxious to resume eliquis. Objective: Vital Signs Temp Pulse Resp BP Pulse Ox 36.6 C 87 14 117/72 90 L 05/16/18 12:00 05/16/18 12:00 05/16/18 12:00 05/16/18 12:00 05/16/18 12:00 Microbiology 05/15/18 14:52 Gram Stain - Final Foot - Tissue Laboratory Results 05/14/18 04:42 05/14/18 04:42 05/15/18 05/16/18 05/17/18 05:59 05:59 05:59 Intake Total 800 2680 480 Output Total 1150 725 300 Balance -350 1955 180 PT 16.2 SEC (12.0-15.0) H 05/11/18 04:41 INR 1.28 (0.83-1.16) H 05/11/18 04:41 - Physical Exam Constitutional: no apparent distress, appears nourished Eyes: PERRL Ears, Nose, Mouth, Throat: hearing normal Cardiovascular: regular rate and rhythym Respiratory: no respiratory distress Gastrointestinal: soft, non-tender abdomen Skin: warm, other (right foot w bandage in place) Musculoskeletal: generalized weakness Neurologic: AAOx3 Psychiatric: interacting appropriately ICD10 Worksheet Patient Problems: Problems Problem Status Onset Dehydration Acute Syncope Acute Chronic Disease Mgmt/TransitionalCare Acute DVT (deep venous thrombosis) Acute Dyspnea Acute Hypoxia Acute MRSA (methicillin resistant Staphylococcus aureus) Acute 05/10/16 MRSA cellulitis Acute Pneumonia Acute Pulmonary emboli Acute Upper GI bleed Acute
--- NOTE | 2018-05-16 18:44 | PCMIDPN ---
Assessment/Plan: Assessment/Plan: * Right lower extremity skin and soft tissue infection at site of previous debridement: Repeat debridement performed yesterday showing primarily necrotic soft tissue at site of previous incision and drainage. Culture showing growth of both lactose fermenting and non lactose fermenting gram-negative rods. Previously cultures have shown growth of Proteus and Serratia. Radiographically without findings of osteomyelitis and bone was not palpable at time of debridement. Will continue Zosyn pending additional culture data. Do not anticipate prolonged antibiotic therapy based on findings being limited to soft tissue. 05/16/18 18:42 Subjective: Patient without specific complaints. Operative findings from yesterday reviewed. Objective: Vital Signs Temp Pulse Resp BP Pulse Ox 36.8 C 79 14 113/59 L 90 L 05/16/18 16:00 05/16/18 16:00 05/16/18 16:00 05/16/18 16:00 05/16/18 16:00 Microbiology 05/15/18 14:52 Gram Stain - Final Foot - Tissue 05/15/18 14:52 Mycobacterial Smear (RAEGAN) - Final Foot - Tissue Laboratory Results 05/14/18 04:42 05/14/18 04:42 05/15/18 05/16/18 05/17/18 05:59 05:59 05:59 Intake Total 800 2680 630 Output Total 1150 725 300 Balance -350 1955 330 Zosyn # 4 Blood cultures x2 no growth Foot cultures with growth of lactose fermenting and non lactose fermenting gram- negative rods - Physical Exam General Appearance: alert, no apparent distress EENT: No scleral icterus, No thrush Respiratory: lungs clear Cardiac/Chest: regular rate, rhythm Extremities: inflammation (Right foot dressed postoperatively; venous insufficiency changes present above dressing) Abdomen: non-tender, No distended ICD10 Worksheet Patient Problems: Problems Problem Status Onset Dehydration Acute Syncope Acute Chronic Disease Mgmt/TransitionalCare Acute DVT (deep venous thrombosis) Acute Dyspnea Acute Hypoxia Acute MRSA (methicillin resistant Staphylococcus aureus) Acute 05/10/16 MRSA cellulitis Acute Pneumonia Acute Pulmonary emboli Acute Upper GI bleed Acute
[2018-05-16] MEDS: ACETAMINOPHEN 325 MG TAB PO PRN (20:00)
[2018-05-16] MEDS: GABAPENTIN 100 MG CAP PO SCH (20:01)
[2018-05-16] MEDS: traZODone 50 MG TAB PO SCH (20:01)
[2018-05-16] MEDS: APIXABAN 5 MG TAB PO SCH (20:01)
[2018-05-17] MEDS: PIPERACILLIN/TAZO 3.375 GM/DEX 50 ML IV SCH ×2 (04:11→08:56)
[2018-05-17 08:51] VITALS: BP 127/73
[2018-05-17] MEDS: DULoxetine 60 MG CAP PO SCH (08:55)
[2018-05-17] MEDS: APIXABAN 5 MG TAB PO SCH (08:56)
[2018-05-17] MEDS: CETIRIZINE 10 MG TAB PO SCH (08:56)
[2018-05-17] MEDS: guaiFENesin 600 MG TAB.ER PO SCH (08:56)
[2018-05-17] MEDS: TAMSULOSIN HCL 0.4 MG CAP PO SCH (08:56)
[2018-05-17] MEDS: POLYETHYLENE GLYCOL 3350 17 GM PKT PO SCH (08:57)
[2018-05-17] MEDS: ACETAMINOPHEN 325 MG TAB PO PRN (08:57)
--- NOTE | 2018-05-17 09:48 | HOSPPROG ---
Hospitalist Progress Note Assessment/Plan: 82 yo M w/ hx DVT/PE, COPD, PVD, BPH, and 1st R toe OM presents with syncope. # syncope - likely d/t infection - nothing on tele, dc # foot infection - appears recurrent; hx 1st toe OM s/p resection - s/p I&D w extensive debridement (05/15) with Dr Berrios - MRI with likely abscess, dorsal cellulitis - Zosyn per ID , dc on Cipro bid, will need 5 more days # hypotension -resolved, will hold diuretics a bit longer # COPD/chronic hypoxic resp failure - at baseline # hx PE - confirmed this was not recent - resume Eliquis # urinary retention/overflow incontinence - 250-300cc on PVR - would not place schrader at this point - ?BPH but unclear, will cont flomax for now - needs urology eval as outpatient #plan: dc to [facility] Subjective: Chester has no complaints, feeling fine. Objective: Vital Signs Temp Pulse Resp BP Pulse Ox 36.3 C 79 16 127/73 H 92 05/17/18 08:00 05/17/18 08:00 05/17/18 08:00 05/17/18 08:00 05/17/18 08:00 Microbiology 05/15/18 14:52 Gram Stain - Final Foot - Tissue 05/15/18 14:52 Mycobacterial Smear (RAEGAN) - Final Foot - Tissue Laboratory Results 05/14/18 04:42 05/14/18 04:42 05/16/18 05/17/18 05/18/18 05:59 05:59 05:59 Intake Total 2680 1230 Output Total 725 450 Balance 1955 780 PT 16.2 SEC (12.0-15.0) H 05/11/18 04:41 INR 1.28 (0.83-1.16) H 05/11/18 04:41 - Physical Exam Constitutional: no apparent distress, appears nourished, not in pain Eyes: PERRL Ears, Nose, Mouth, Throat: hearing normal Cardiovascular: regular rate and rhythym Respiratory: no respiratory distress Skin: warm, other (right lower ext w dry scaley skin, dressing in place) Neurologic: AAOx3 Psychiatric: interacting appropriately ICD10 Worksheet Patient Problems: Problems Problem Status Onset Dehydration Acute Syncope Acute Chronic Disease Mgmt/TransitionalCare Acute DVT (deep venous thrombosis) Acute Dyspnea Acute Hypoxia Acute MRSA (methicillin resistant Staphylococcus aureus) Acute 05/10/16 MRSA cellulitis Acute Pneumonia Acute Pulmonary emboli Acute Upper GI bleed Acute
--- NOTE | 2018-05-17 10:34 | PCMIDPN ---
Assessment/Plan: Assessment: 82-year-old man with right 1st distal metatarsal deep skin and soft tissue infection without underlying osteomyelitis. Underwent debridement on May 15 necrotic tissue and no underlying abscess. 1. Deep skin and soft tissue infection distal 1st right metatarsal, polymicrobial 2. Status post debridement of the right distal foot 05/15/2018 3. Stasis dermatitis right lower extremity 4. History of right great toe osteomyelitis Plan: 1. Start ciprofloxacin 500 mg p. O. Twice daily discharge, and 8 05/22/2018 2. Follow up in ID Clinic arranged 05/17/18 10:35 05/17/18 10:40 Subjective: No fever or chills. Generally feeling well. No nausea or diarrhea. Objective: Vital Signs Temp Pulse Resp BP Pulse Ox 36.3 C 79 16 127/73 H 92 05/17/18 08:00 05/17/18 08:00 05/17/18 08:00 05/17/18 08:00 05/17/18 08:00 Microbiology 05/15/18 14:52 Gram Stain - Final Foot - Tissue 05/15/18 14:52 Mycobacterial Smear (RAEGAN) - Final Foot - Tissue Laboratory Results 05/14/18 04:42 05/14/18 04:42 05/16/18 05/17/18 05/18/18 05:59 05:59 05:59 Intake Total 2680 1230 Output Total 725 450 Balance 1955 780 Microbiology 05/15/18 14:52 Foot - Tissue Gram Stain - Final 05/15/18 14:52 Foot - Tissue Anaerobic Culture - Preliminary Gram Neg Shad Nonlactose Ferm. Gram Neg Shad Lactose [employer] 05/12/18 15:40 Blood Blood Culture - Preliminary 05/12/18 15:30 Blood Blood Culture - Preliminary Laboratory Tests 05/12/18 05/14/18 15:30 04:42 WBC 14.89 H 6.57 Absolute Neuts (auto) 12.82 H 3.74 Absolute Lymphs (auto) 0.83 L 1.41 - Physical Exam General Appearance: alert, no apparent distress EENT: No scleral icterus Extremities: other (Right lower extremity with postsurgical dressing in place, extending to the proximal ankle. Erythema extending proximally to mid zurita.) Skin: normal color, No rash Neuro/Psych: alert, normal mood/affect, oriented x 3 ICD10 Worksheet Patient Problems: Problems Problem Status Onset Dehydration Acute Syncope Acute Chronic Disease Mgmt/TransitionalCare Acute DVT (deep venous thrombosis) Acute Dyspnea Acute Hypoxia Acute MRSA (methicillin resistant Staphylococcus aureus) Acute 05/10/16 MRSA cellulitis Acute Pneumonia Acute Pulmonary emboli Acute Upper GI bleed Acute
--- NOTE | 2018-05-17 10:42 | PDIAF ---
- Diagnosis Code Status: Full Code - Medication Management [facility] Antibiotics: Ciprofloxacin 500 mg p.o. 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 - Orders Isolation Type: Contact Isolation Diet Recommendation: no restrictions on diet Diet Texture: Regular Texture Diet Additional Instructions: Please follow up within 3- 4 weeks of discharge with outpatient [facility]. You may reach them at [phone] for an appointment and continued management of your wounds. Please call them luz to schedule your appointment as they fill up quickly. If before that time you have any issues, please follow up with your PCP or Dr. Berrios. Wound Care: Change dressings to right foot DAILY and PRN. Apply Atractain Cream liberally to both legs and feet, except between toes. 1. Clean wound with normal saline and gauze 2. Wound gel to wound bed 3. Cover right toes/end of foot with ABD pad. 4. Secure lightly with kerlix, extending kerlix to below the right knee. 5. Lightly wrap Coban from end of foot to below the knee. 6. Ok to use netting to secure dressing over foot. Belinda Varghese flight operation coordinator Team follow up with Urologist once your foot heals, you have urinary retention - you can see Dr Sanches, Dr Monteiro or Dr Palafox make an appointment to f/u with Dr Berrios in the next week Cipro can cause diarrhea, if you have > 3 liquid stools in a day, call infectious disease team Cipro can also affect your tendons; in particular the Achilles tendon. If you develop pain, call the ID team Diuretics were held during his hospital stay due to low blood pressure, this has since resolved; check blood pressure prior to giving and hold if systolic is <110 - Follow Up Care Current Providers and Referrals: Patient,NotPresent [Unknown] - As per Instructions Ridge Dorantes MD [Medical Doctor] - Harley Cowan MD [Medical Doctor] -
--- NOTE | 2018-05-17 10:43 | PDIAF ---
- Diagnosis Diagnosis: r foot infection, hypotension, hx of PE Code Status: Full Code - Medication Management Natural Remedy Consultant Antibiotics: cipro 500 mg bid Natural Remedy Consultant Antibiotic Stop Date: 05/22/18 Discharge Medications: electronically signed and located in the Home Medication List. PICC Care - Routine: N/A - Orders Services needed: Physical Therapy, Occupational Therapy Isolation Type: Contact Isolation Diet Recommendation: no restrictions on diet Diet Texture: Regular Texture Diet Additional Instructions: Please follow up within 3- 4 weeks of discharge with outpatient [facility]. You may reach them at [phone] for an appointment and continued management of your wounds. Please call them luz to schedule your appointment as they fill up quickly. If before that time you have any issues, please follow up with your PCP or Dr. Berrios. Wound Care: Change dressings to right foot DAILY and PRN. Apply Atractain Cream liberally to both legs and feet, except between toes. 1. Clean wound with normal saline and gauze 2. Wound gel to wound bed 3. Cover right toes/end of foot with ABD pad. 4. Secure lightly with kerlix, extending kerlix to below the right knee. 5. Lightly wrap Coban from end of foot to below the knee. 6. Ok to use netting to secure dressing over foot. Belinda Varghese RN Wound Care Team follow up with Urologist once your foot heals, you have urinary retention - you can see Dr Sanches, Dr Monteiro or Dr Palafox make an appointment to f/u with Dr Berrios in the next week Cipro can cause diarrhea, if you have > 3 liquid stools in a day, call infectious disease team Cipro can also affect your tendons; in particular the Achilles tendon. If you develop pain, call the ID team Diuretics were held during his hospital stay due to low blood pressure, this has since resolved; check blood pressure prior to giving and hold if systolic is <110 - Labs/Radiology BMP Date: 05/22/18 CBC w/diff Date: 05/22/18 - Follow Up Care Current Providers and Referrals: Patient,NotPresent [Unknown] - As per Instructions Ridge Dorantes MD [Medical Doctor] - follow up in 1 week Siddharth Berrios MD [Doctor of Podiatric Medicine] - follow up in 1 week
--- NOTE | 2018-05-17 11:31 | GDS ---
DISCHARGE DIAGNOSES: 1. Syncope. 2. Foot infection, recurrent. 3. Hypotension. 4. Chronic obstructive pulmonary disease, chronic hypoxemic respiratory failure. 5. History of pulmonary embolism. 6. Urinary retention with overflow incontinence. CONSULTATIONS: 1. Dr. Berrios. 2. Dr. Shaina Gomez. Briefly, the patient is an 82-year-old gentleman with right osteomyelitis of his 1st metatarsal, status post multiple debridements. He was admitted for syncope at home, and his foot looked more red than usual. He had a lower extremity MRI performed, which showed extensive postsurgical changes within the right forefoot. Within the 1st toe amputation bed, there was a 4.5 x 3.5 x 2.6 cm fluid collection with rim enhancement, compatible with abscess, with 2 separate fistulous communications to the skin, one along the plantar aspect of the proximal surgical bed and the second distally extending to the distal stump. He had associated extensive dorsal cellulitis. He was seen and evaluated by Dr. Berrios. He had an incision and drainage of the right foot with extensive debridement. The patient tolerated this procedure well. He was treated with Zosyn. He will be discharged on Cipro. He will further follow up with the infectious disease team, as well as Dr. Berrios. HOSPITAL COURSE BY PROBLEM: 1. Right foot cellulitis. He is status post I and D with extensive debridement on the . 2. Syncope. This is likely due to the infection. He has no arrhythmia on the surveillance system monitor. 3. Hypotension. This has since resolved. 4. COPD with chronic hypoxemic respiratory failure. He is at his baseline. 5. History of PE. Resumed his Eliquis. 6. Urinary retention with overflow incontinence. Recommending that he gets urologist outpatient evaluation. DISCHARGE CONDITION: Stable. Blood pressure is 127/73, heart rate 79, respiratory rate of 16, O2 sats on 4 L are 92, temperature is 36.3 Celsius. MEDICATIONS AT DISCHARGE: Please see the EMR. DISCHARGE INSTRUCTIONS: 1. To follow up with Dr. Berrios in 1 to 2 weeks. 2. To follow up with the infectious disease team in the next 1 to 2 weeks. 3. Reviewed with him the side effects of Cipro, including tendon rupture as well as Clostridium difficile colitis. 4. To follow up with Urology. 5. Wound care dressing has been written out in detail. Greater than 30 minutes discharging and coordinating care. Copy requested to: Dr. Berrios /[id number]/MODL MTDD
--- NOTE | 2018-05-17 13:37 | ASMTLACE ---
LACE Length of stay for Answers: 4-6 days current admission Acuity / Level of Answers: Yes Care: Did the patient have an inpatient admission? Comorbidities - select Answers: Chronic pulmonary disease all that apply Opioid dependence / Chronic pain Peripheral vascular disease Other Notes: DVT; PE # of Emergency department Answers: 3-4 visits in the last 6 months Score: 18 Date Signed: 05/17/2018 01:37 PM Electronically Signed By:GIBRAN Stevens
--- NOTE | 2018-05-17 14:58 | ASDISCHSUM ---
Discharge Information Plan Status:SNF Medically Cleared to Leave:05/16/2018 Discharge Date:05/16/2018 CM D/C Disposition: ADT D/C Disposition:Group Home Facility Projected Discharge Date:05/17/2018 11:00 AM Transportation at D/C: Discharge Delay Reason: Follow-Up Date:05/17/2018 11:00 AM Discharge Slot: Final Diagnosis: Placement Information Referral Type:*Home Health Care Services Referral ID:[id number] Provider Name: Address 1: Phone Number: Address 2: Fax Number: City: Selection Factors: State: Referral Type:*Residential/SNF Referral ID:[id number] Provider Name:[facility] Address 1:[address] [place] [address] Address 2: City:[place] Selection Factors: State:[place] Patient Contact Information Contact Name:FRANCIS Relationship:Son Address: Work Phone: City:[place] Alternate Phone: State/Zip Code:[place] [address] Email: Financial Information Financial Class:Medicare Advantage Plans Primary Plan Desc:[employer] Primary Plan Number:[id number] Secondary Plan Desc: Secondary Plan Number: Assessment Information LACE LACE Length of stay for Answers: 4-6 days current admission Acuity / Level of Answers: Yes Care: Did the patient have an inpatient admission? Comorbidities - select Answers: Chronic pulmonary disease all that apply Opioid dependence / Chronic pain Peripheral vascular disease Other Notes: DVT; PE # of Emergency department Answers: 3-4 visits in the last 6 months Score: 18 Date Signed: 05/17/2018 01:37 PM Electronically Signed By:GIBRAN Stevens [facility] CM Progress Note CM Note CM Note Notes: Patient admitted for syncope - states he's had three syncopal episodes recently. He is also c/o increased drainage from a toe amputation site (surgery was last month). Wound care will see. Patient lives independently. He is currently with [facility] for home RN and PT. We will resume this upon d/c unless his needs have changed. Case Management will follow. Date Signed: 05/11/2018 01:41 PM Electronically Signed By:Chelsy Collins RN [facility] ZAIDA Progress Note CM Note CM Note Notes: Recieved call from pt's home health RN Mitchell ([facility]), she has concerns about pt. She states he does not participate in his care, not eating or keeping hydrated, and is depressed. His children work time study clerk, she thinks he should not come home right away. ZAIDA shared HH RN with , he has not yet rounded on pt. Pt is current with [facility] (RN/PT) DC Plan: TBD Date Signed: 05/12/2018 11:07 AM Electronically Signed By:Jennifer Anderson RN [facility] ZAIDA Progress Note CM Note CM Note Notes: Pts case discussed w/ HUBERT Rojas. ZAIDA met w/ pt for dispo planning. Therapies are both recommending SNF. Pt reports that he has been to [facility] in the past. Pt is agreeable to referral being sent to [facility]. Referral sent. Pt is skeptical about going to [facility]. Pt is afraid that the SNF will keep him there too long. CM to follow. Plan: TBD Date Signed: 05/15/2018 10:54 AM Electronically Signed By:GIBRAN Stevens Case Management Discharge Plan Note Case Management Discharge Discharge Order Complete? Answers: Yes Patient to Obtain Answers: Other Notes: [facility] Medications Transportation Arranged Answers: Other Notes: [facility] W/C transport Transport will Pick (Date 05/17/2018 03:30 PM & Time) EMTALA Complete Answers: No Case Management Transport Answers: No Form Complete Faxed Final Orders Answers: Yes Agency/Facility Transfer Answers: Yes Report Printed & Faxed to Receiving Agency Family Notified Answers: No Discharge Comments Notes: Pts case discussed w/ Belle Angela NP. Pt is being d/c'd today. DC orders sent to [facility]. CM spoke to [facility] and arranged transportation. HUBERT Holliday will call to give report. CM available for changes. Plan: [facility] Date Signed: 05/17/2018 02:57 PM Electronically Signed By:GIBRAN Stevens Intervention Information Intervention Type:*IM-Signed Date of Service:05/17/2018 12:31 PM Patient Type:Inpatient Staff Member:Vanessa Rollins Hours: Discipline: Severity: Comment:
--- NOTE | 2018-05-22 10:20 | PQFORM ---
PHYSICIAN QUERY FORM Needs Your Response This query form is being sent to you to assure this patient record is coded properly. Please respond to the question below: FLITCH HANGER QUESTION: Dear Dr. Berrios, On the operative report for this patient you document extensive debridement and the necrotic tissue was dissected free. Can these statement be interpreted as any of the following?: excisional debridement non-excisional debridement Other Thank you for clarifying, SARIKA Arredondo HIM Coding INSTRUCTIONS FOR RESPONSE: Answer question by clicking on the "Edit Document" button. Move cursor to area below the stars. When complete, hit "Save." Click on the "Sign" button, then click "Sign" again. Type in your PIN and hit "Enter." non excisional debridement by christina HAMILTON
[2018-05-23] MEDS ORDERED: TESTOSTERONE IM 100 MG/ML SYRINGE IM SCH (09:00)
== END 2018-05-17 15:45 | DRG 857 ==
LOC: EDBD → EDUNIT# → F3N 09:30 → OBSVTOIN 05-12 15:58
PROVIDERS: ADMIT Student in an Organized Health Care Education/Training Program; ATTEND Internal Medicine
PROC: 0JDQ0ZZ Extraction of Right Foot Subcutaneous Tissue and Fascia, Open Approach (ICD-10-PCS; principal; 2018-05-15 14:00)
DX: T81.41XA Infection following a procedure, superficial incisional surgical site, initial encounter (principal); L02.611 Cutaneous abscess of right foot; L03.115 Cellulitis of right lower limb; L97.512 Non-pressure chronic ulcer of other part of right foot with fat layer exposed; R55 Syncope and collapse; J44.9 Chronic obstructive pulmonary disease, unspecified; J96.11 Chronic respiratory failure with hypoxia; G47.33 Obstructive sleep apnea (adult) (pediatric); I95.9 Hypotension, unspecified; G62.9 Polyneuropathy, unspecified; I10 Essential (primary) hypertension; I50.810 Right heart failure, unspecified; E78.5 Hyperlipidemia, unspecified; N40.0 Benign prostatic hyperplasia without lower urinary tract symptoms; I87.8 Other specified disorders of veins; Z99.81 Dependence on supplemental oxygen; Z86.718 Personal history of other venous thrombosis and embolism; Z86.711 Personal history of pulmonary embolism; Z79.01 Long term (current) use of anticoagulants; Z96.641 Presence of right artificial hip joint
CPT/HCPCS: 84484-ER; 97110-GP; 97116-GP; 97161-GP; 97165-GO; 97530-GO; 97535-GO; A9585; G0378; J0171; J1071; J2543; J2704

== ENCOUNTER 2018-07-30 23:46 | Emergency (ER) | payer OTHER ==
--- NOTE | 2018-07-31 00:05 | EDPHY ---
H & P Stated Complaint: Fall, Head lac, on eliquis - Personal History Current Tetanus Diphtheria and Acellular Pertussis (TDAP): Yes - Medical/Surgical History Hx Asthma: No Hx Chronic Respiratory Disease: Yes Hx Diabetes: No Hx Cardiac Disease: No Hx Renal Disease: No Hx Cirrhosis: No Hx Alcoholism: No Hx HIV/AIDS: No Hx Splenectomy or Spleen Trauma: No Other PMH: PE x3, DVT's, Pulmonary HTN, multiple rt foot surgeries, sleep apnea , COPD, venous stasis ulcers, R hip replacement, right and left rotator cuff repair. hx lymphadema RLE that "flares up". 2nd toe left foot amp 08/24/17. mrsa right foot, afib, CHF, periferal neuropathy, infection 03/2018 right foot, cdiff 2017 - Social History Smoking Status: Former smoker Time Seen by Provider: 07/30/18 23:52 HPI/ROS: Chief Complaint: Fall, head injury HPI: 82-year-old male with a history of COPD, DVT and PE on Eliquis. Patient states that he had a mechanical slip and fall in the bathroom this evening, striking his head on the soap dish. The water was running in the bathroom with slipped pre. He is uncertain if he had a loss of consciousness. He was able to call EMS. He had managed to crawl to the front door on their arrival. He has been taking his Eliquis. He does admit to drinking some wine tonight. Also was not on his oxygen which she wears every night. Denies any recent illness. No headache. No numbness or weakness. No nausea or vomiting. No shortness of breath or chest pain. ROS: 10 systems were reviewed and were negative except those elements noted in the HPI. PMH: COPD, PE, DVT on Eliquis, chronic oxygen where Social History: Quit smoking years ago, occasional alcohol, no recreational drug use Family History: non-contributory Physical Exam: Gen: Awake, Alert, Airway Intact HEENT: Patient has a 4 cm laceration on the vertex of his skull, no active bleeding, no bony deformity Head: Atraumatic Eyes: PERRLA, EOMI Nose: No epistaxis Mouth: Normal dentition, Airway patent Face: No deformity Neck: non-tender, no stepoff, Full ROM without pain Chest: non-tender, lungs CTA Heart: normal heart tones Abd: soft, non-tender, atraumatic Pelvis: non-tender, stable to AP and Lateral compression Back: atraumatic, no midline tenderness Ext: Patient has superficial skin tears on his left arm, no bony tenderness, full ROM, healing amputation wounds right foot, no erythema warmth discharge or pain Skin: no rash Neuro: CN II-XII intact, Strength 5/5 in all extremities, sensation intact in all extremities (Saurabh Everett) Constitutional: Initial Vital Signs Temperature (C) 36.8 C 07/30/18 23:53 Heart Rate 82 07/30/18 23:53 Respiratory Rate 17 07/30/18 23:53 Blood Pressure 127/78 H 07/30/18 23:53 O2 Sat (%) 88 L 07/30/18 23:53 O2 Delivery Mode Nasal Cannula O2 (L/minute) 2 Allergies/Adverse Reactions: No Known Allergies Allergy (Verified 07/30/18 23:52) Home Medications: Medication Instructions Recorded Apixaban [Eliquis] 5 mg PO BID 08/14/15 Tamsulosin HCl [Flomax 0.4 MG (*)] 0.4 mg PO DAILY 02/13/16 Methylphenidate HCl [Ritalin 5mg 5 mg PO DAILY 03/07/18 (*)] Cetirizine [ZyrTEC 10 mg (*)] 10 mg PO DAILY 05/08/18 DULoxetine [Cymbalta 60 MG (*)] 60 mg PO DAILY 05/08/18 Spironolactone [Aldactone 25 MG 25 mg PO DAILY 05/08/18 (*)] Acetaminophen [Tylenol 325mg (*)] 325 mg PO Q6HRS PRN 05/11/18 Albuterol [Proventil Inhaler HFA 1 - 2 puffs IH Q4H PRN 05/11/18 (*)] Furosemide [Lasix 20 MG (*)] 20 mg PO DAILY 05/11/18 Gabapentin [Neurontin 100 MG (*)] 100 mg PO HS 05/11/18 Hydrocortisone 2.5% 1 stefanie TP BID PRN 05/11/18 [Hydrocortisone 2.5% cream (*)] Polyethylene Glycol 3350 [Miralax 17 gm PO DAILY 05/11/18 17 gm (*)] Sodium Cl Nasal [[place] (*)] 1 spray NS DAILY PRN 05/11/18 Testosterone IM [Testosterone 200 mg IM Q14D 05/11/18 100mg/ml IM inj (*)] guaiFENesin [Mucinex 600 MG (*)] 600 mg PO BID 05/11/18 traZODone [traZODONE 50MG (*)] 50 mg PO HS 05/11/18 Ciprofloxacin [Cipro] 500 mg PO BID #10 tab 05/17/18 Hydrocodone/APAP 5/325 [[place] 1 - 2 tab PO Q3HRS PRN tab 05/17/18 5/325 (*)] Medical Decision Making - Diagnostics Imaging Results: CT HEAD without contrast BRAIN: No acute hemorrhage. Normal nettles/white matter differentiation. Mild right frontal lobe encephalomalacia. No mass, mass effect or midline shift. Diffuse cerebral volume loss with corresponding ventricular prominence. Patchy white matter low attenuation, likely microvascular ischemic changes. 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 VENTRICLES: No hydrocephalus. EXTRA-AXIAL SPACES: No hemorrhages, fluid collections, or masses. CALVARIUM/SKULL BASE: Normal. FACE/SINUSES: Partially imaged right maxillary sinus retention cyst/polyp. Minimal left maxillary sinus mucosal thickening. Opacified left frontal sinus. SOFT TISSUES: Right frontoparietal scalp laceration with soft tissue swelling and air. No radiodense foreign body seen. OTHER: None. CONCLUSION: No acute intracranial abnormality. Right frontoparietal scalp laceration. CT CERVICAL SPINE without contrast FRACTURES: None. ALIGNMENT: Grade 1 anterolisthesis of C4 on C5, which appears degenerative in etiology. MINERALIZATION: Decreased. VERTEBRA BODIES: Normal in height with bulky osteophytes. DISC SPACES: Degenerative disc disease, greatest at C5-C6 and C6-C7. POSTERIOR ELEMENTS: Multilevel facet arthropathy and neuroforaminal narrowing. SPINAL CANAL: Moderate narrowing at C5-C6 and C6-C7. PARASPINAL SOFT TISSUES: Normal. OTHER: None. CONCLUSION: No acute cervical spine fracture. Spondylosis and degenerative disc disease. ELECTRONICALLY SIGNED BY: Henyn Kang M.D. Jul 31, 2018 1:01:00 AM MDT (Saurabh Everett) Procedures: Procedure: Laceration repair. I was requested by to perform wound closure I explained the indications, risks and benefits for both laceration repair and anesthetic administration. Verbal consent was obtained from the patient. The laceration on the vertex of scalp was anesthetized using 0.5% bupivicaine with epinephrine. After anesthetic administered the patient was observed for a period of time and had no apparent adverse effects. The wound was cleaned, prepped, draped in normal sterile fashion and explored to its base. No foreign body seen, no foreign bodies palpated. There were no deep structures involved. No galea defects. The wound was repaired with 19 manolo . The wound repair was complex. The procedure was performed by myself. Patient has been informed that scarring will occur, although efforts have been made to minimize this. (Hilda Ramirez) ED Course/Re-evaluation: 82-year-old intoxicated male status post mechanical fall with a head injury. He is on Eliquis. Will obtain CT scanning of his head cervical spine rule out acute injury. Lacerations been repaired by the physician casino assistant manager. CT scan is negative. Patient's mental status is improved. He is ambulating unassisted in the emergency department, will discharge back home. (Saurabh Everett) Departure - Departure Disposition: Home, Routine, Self-Care Clinical Impression: Fall, Scalp laceration, Skin avulsion Condition: Good Instructions: Laceration (ED), Staple Care (ED), Skin Avulsion (ED) Additional Instructions: Manolo need to be removed in 10 days. Follow up with your primary care physician in 3-4 days for re-evaluation. Return to the emergency department for further falls, headache, vomiting, confusion, or any other concerns. Referrals: Patient,NotPresent [Unknown] - As per Instructions
[2018-07-31 06:20] VITALS: BP 117/74
== END 2018-07-31 06:20 | disposition home or self-care (01) ==
LOC: EDUNIT#
PROC: 0HQ0XZZ Repair Scalp Skin, External Approach (ICD-10-PCS; principal; 2018-07-31)
DX: S01.01XA Laceration without foreign body of scalp, initial encounter (principal); S41.102A Unspecified open wound of left upper arm, initial encounter; W01.198A Fall on same level from slipping, tripping and stumbling with subsequent striking against other object, initial encounter; Y92.012 Bathroom of single-family (private) house as the place of occurrence of the external cause; I27.20 Pulmonary hypertension, unspecified; G47.30 Sleep apnea, unspecified; J44.9 Chronic obstructive pulmonary disease, unspecified; I48.91 Unspecified atrial fibrillation; I50.9 Heart failure, unspecified; G62.9 Polyneuropathy, unspecified; Z79.01 Long term (current) use of anticoagulants; Z86.711 Personal history of pulmonary embolism; Z86.718 Personal history of other venous thrombosis and embolism; Z87.891 Personal history of nicotine dependence; Z96.641 Presence of right artificial hip joint; Z86.19 Personal history of other infectious and parasitic diseases; Z89.421 Acquired absence of other right toe(s)
CPT/HCPCS: 82435-PO; 82565-PO; 82947-PO; 84132-PO; 84295-PO; 84520-PO; 85014-ER

== ENCOUNTER 2018-09-28 07:21 | Day surgery (SDC) | payer OTHER | END 2018-09-28 14:28 | disposition home or self-care (01) | LOC: FSGY 07:21 ==